=== PATIENT | male | born 1985 | race Caucasian/White ===

== ENCOUNTER 2019-07-18 15:51 | Emergency (ER) | payer MEDICARE, MEDICAID, SELFPAY ==
--- NOTE | ~2019-07-18 | XR_ITS ---
EXAMINATION: XR chest 1V portable EXAM DATE: 07/18/2019 17:16 INDICATION: Fever, shortness of breath today. TECHNIQUE: Portable AP frontal chest x-ray was obtained. There is no prior study for comparison. FINDINGS: The lungs are clear. There are no pleural effusions. The cardiomediastinal silhouette is within normal limits. There is no pneumothorax suspected. The bones and soft tissues are unremarkab le. IMPRESSION: No acute cardiopulmonary findings. Reviewed, dictated and finalized at location A.
[2019-07-18 15:53] VITALS: BP 141/97; PULSE 101; RESP 16; TEMP 36.9; O2SAT 96
--- NOTE | 2019-07-18 16:03 | ECG_ITS ---
Measurements Intervals [place] Rate: 97 P: 52 CO: 152 QRS: 31 QRSD: 105 T: 21 QT: 356 QTc: 454 Interpretive Statements SINUS RHYTHM NORMAL ECG Electronically Signed On 07-19-2019 7:02:24 CDT by Bubba Newell D.O.
--- NOTE | 2019-07-18 16:34 | ED.SOB ---
HPI - SOB/Dyspnea General Chief Complaint: Shortness of Breath/Dyspnea Stated Complaint: fever,sob Time Seen by Provider: 07/18/19 16:30 History of Present Illness HPI Narrative: COugh and SOB for the past week. Associated with mild temperature elovation today. He is not aware of any sick contacts. No nausea, vomiting. He has a h/o schizophrenia. History limited by mental illness. Related Data Home Medications Medication Instructions Recorded Confirmed paliperidone palmitate [Invega 234 mg IM 07/18/19 Sustenna] Allergies Allergy/AdvReac Type Severity Reaction Status Date / Time No Known Allergies Allergy Verified 07/18/19 15:59 Review of Systems Review of Systems: All systems reviewed & are unremarkable except as noted in HPI and below Constitutional: Constitutional: Reports fever(s) ENT: Denies sore throat Cardiovascular: Cardiovascular: Reports chest pain Respiratory: Respiratory: Reports cough and Reports dyspnea Gastrointestinal: Gastrointestinal: Denies abdominal pain and Denies nausea Neurologic: Denies dizziness and Denies weakness [facility] Past Medical History Medical History (Updated 07/18/19 @ 18:11 by Ryan Reynolds MD) Schizophrenia Social History Social History (Updated 07/18/19 @ 18:08 by Ryan Reynolds MD) Living arrangements: with family Exam Const: General: healthy appearing, no acute distress and alert Orientation/consciousness: patient oriented x3 HENMT: Head: normal to inspection Resp: Effort & Inspection: normal respiratory effort Auscultation: clear to auscultation bilaterally Cardio: Rate: tachycardic Rhythm: regular rhythm GI: GI Palp: Yes Soft to palpation and No Tenderness to palpation present (GI) Skin: General skin exam: normal color Neuro: General: patient oriented x3, moves all extremities and no focal motor deficits Speech: normal speech Extrem: General: normal to inspection Psych: Affect: Anxious affect present Course Vital Signs Vital signs: Vital Signs Temperature 36.9 C 07/18/19 15:53 Pulse Rate 101 H 07/18/19 15:53 Respiratory Rate 16 07/18/19 15:53 Blood Pressure 141/97 H 07/18/19 15:53 Pulse Oximetry 96 07/18/19 15:53 Temperature 36.6 C 07/18/19 17:54 Pulse Rate 96 07/18/19 17:54 Respiratory Rate 16 07/18/19 17:54 Blood Pressure 136/91 H 07/18/19 17:54 Pulse Oximetry 96 07/18/19 17:54 MDM - SOB/Dyspnea MDM Narrative Medical decision making narrative: Mild temperature elevation. Certainly posible that he has COVID-19. I will send off the test. No indication for hospital admission at this time. Medical Records Attestation: I reviewed the patient's medical records. Lab Data Labs: Lab Results 07/18/19 Range/Units 17:53 SARS-CoV-2 RNA (RT-PCR) Pending Imaging Data Radiologist's impression: ITS Impressions Chest X-Ray 07/18/19 17:23 IMPRESSION: No acute cardiopulmonary findings. Discharge Plan Discharge Clinical Impression: Upper respiratory tract infection Qualifiers: URI type: unspecified URI Qualified Code(s): J06.9 - Acute upper respiratory infection, unspecified Patient Disposition: Home, Self-Care Condition: Stable Instructions: Upper Respiratory Infection (ED) Prescriptions: No Action Invega Sustenna 234 mg/1.5 mL Syringe 234 mg IM RF: 0 Follow-up/Referrals: Kamari Lord MD [Primary Care Provider] - Discharge Date/Time: 07/18/19 18:35
[2019-07-18 16:50] VITALS: BP 142/81; PULSE 95; RESP 17; O2SAT 98
[2019-07-18 17:54] VITALS: BP 136/91; PULSE 96; RESP 16; TEMP 36.6; O2SAT 96
[2019-07-19 13:21] LABS: SARS-CoV-2 RNA PCR Negative
== END 2019-07-18 18:35 | disposition home or self-care (01) ==
PROVIDERS: Emergency Provider Emergency Medicine; PCP Emergency Medicine
DX: J06.9 Acute upper respiratory infection, unspecified (principal); Z20.828 Contact with and (suspected) exposure to other viral communicable diseases; F20.9 Schizophrenia, unspecified
CPT/HCPCS: 71045; 87635; 93005; 99283; C9803; U0003

== ENCOUNTER 2021-01-14 15:22 | Emergency (ER) | payer MEDICARE, MEDICAID, SELFPAY ==
--- NOTE | ~2021-01-14 | XR_ITS ---
EXAMINATION: XR chest 2V EXAM DATE: 01/14/2021 16:08 INDICATION: Sternal chest pain and shortness of breath. Worse with movement. TECHNIQUE: Frontal and lateral projections of the chest obtained and reviewed. There is no prior yoselyn dy for comparison. FINDINGS: The lungs are clear. There are no pleural effusions. The cardiomediastinal silhouette is within normal limits. There is no pneumothorax suspected. The bones and soft tissues are unremarkab le. IMPRESSION: No acute cardiopulmonary findings. Reviewed, dictated and finalized at location A.
--- NOTE | ~2021-01-14 | CT_ITS ---
EXAMINATION: CTA chest PE protocol DATE: 01/14/2021 18:25 INDICATION: Chest pain. Shortness of breath. Elevated d-dimer. TECHNIQUE: Computed tomography angiography (CTA) of the chest was performed with 100 mL Omnipaque-350 intravenous contrast timed to evaluate the pulmonary arteries. Coronal maximum intensity projection 3D-reconstructions were created by the technologist. Automated exposure control and iterative reconst ruction technique were employed. Exam dose: 476.32 mGy-cm total exam DLP. COMPARISON: 01/2021 2 view chest FINDINGS: There is diagnostic contrast enhancement of the pulmonary arteries and no evidence of pulmo nary embolism. No thoracic aortic aneurysm or dissection. Normal heart size. No pericardial effusion. No hilar or mediastinal mass lesion or lymphadenopathy. No pulmonary infiltrate or consolidation or pulmonary mass lesion is detected. There are small bilateral pleural effusions. Included skeletal structures are unremarkable. IMPRESSION: No evidence of pulmonary embolism Reviewed, dictated and finalized at Location A. Reviewed, dictated and finalized at location A.
[2021-01-14 15:32] VITALS: BP 138/84; PULSE 103; RESP 12; TEMP 36.6; O2SAT 98
--- NOTE | 2021-01-14 15:32 | ECG_ITS ---
Measurements Intervals [place] Rate: 111 P: 48 DC: 148 QRS: 75 QRSD: 105 T: 40 QT: 323 QTc: 439 Interpretive Statements SINUS TACHYCARDIA INCOMPLETE RIGHT BUNDLE BRANCH BLOCK BASELINE WANDER- I, III, AVR, AVL, AVF ABNORMAL ECG Electronically Signed On 01-14-2021 15:41:41 CDT by Bubba Newell D.O.
[2021-01-14 15:55] LABS: Basophils Absolute Auto 0.1 K/mm3 (0.0-0.1); Basophils Percent Auto 0.8 % (0.2-1.2); Eosinophils Absolute Auto 0.1 K/mm3 (0-0.3); Eosinophils Percent Auto 1.7 % (0-4.4); Hematocrit 42.9 % (42.0-52.0); Hemoglobin 15.1 g/dL (14.0-18.0); Immature Granulocyte Absolute 0.02 K/mm3 (0.00-0.031); Immature Granulocyte Percent A 0.3 % (0-0.5); Lymphocytes Absolute Auto 2.02 K/mm3 (0.9-3.2); Lymphocytes Percent Auto 34.2 % (18.3-44.2); Mean Corpuscular HGB Conc 35.2 g/dl (32-36); Mean Corpuscular Hemoglobin 29.6 pg (26-34); Mean Corpuscular Volume 84.1 fl (80-100); Mean Platelet Volume 9.3 fl (7.4-10.4); Monocytes Absolute Auto 0.4 K/mm3 (0.1-0.6); Monocytes Percent Auto 7.3 % (2.6-8.5); Neutrophils Absolute Auto 3.3 K/mm3 (1.3-6.7); Neutrophils Percent Auto 55.7 % (45.5-73.1); Platelet Count Result 277 k/mm3 (150-375); Red Cell Distribution Width 12.1 % (11.5-14.5); White Blood Count 5.9 K/mm3 (4.5-10.0)
[2021-01-14 16:08] LABS: Anion Gap 13 mmol/L (8-16); Blood Urea Nitrogen 13 mg/dL (9-20); Calcium 10.1 mg/dL (8.4-10.2); Carbon Dioxide 26 mmol/L (22-30); Chloride 104 mmol/L (98-107); Estimated CRCL calculation 128 ml/min; Estimated Glomerular Filt Rate > 60; Glucose 123 mg/dL (65-110); Potassium 4.2 mmol/L (3.4-5.0); Sodium 143 mmol/L (137-145)
[2021-01-14 16:14] LABS: INR 0.9; Prothrombin Time 12.3 Seconds (11.1-14.7)
[2021-01-14 16:15] LABS: Partial Thromboplastin Time 30.4 SECONDS (22.3-36.8)
[2021-01-14 16:20] LABS: Troponin I < 0.012 ng/mL (0.000-0.034)
[2021-01-14] MEDS: LIDOCAINE HCL 2% VISC SOLN 15 ML UDC 20 ML PO (16:52)
--- NOTE | 2021-01-14 16:53 | ED.CHESTPAIN ---
HPI - Chest Pain General Chief Complaint: Chest Pain Stated Complaint: chest pain Time Seen by Provider: 01/14/21 16:19 Source: patient History of Present Illness HPI narrative: Patient presents with chest pain. Patient ports that intermittent chest pain for the past month. With symptoms associated with exercise and moving his upper extremities. His pain is described as his sharp without radiation. It is associated with shortness of breath and upset stomach. Denies any cough fevers congestion. Denies any recent hospitalizations major trauma or prior history of blood clots. Denies significant family history of cardiac events. Related Data Home Medications Medication Instructions Recorded Confirmed paliperidone palmitate [Invega 234 mg IM 07/18/19 Sustenna] Allergies Allergy/AdvReac Type Severity Reaction Status Date / Time No Known Allergies Allergy Verified 07/18/19 15:59 Review of Systems Review of Systems: CONSTITUTIONAL: Denies fever, chills, or sweats. EYES: Denies visual changes, redness, or discharge. ENT: Denies rhinorrhea, congestion, sore throat, or otalgia. CARDIOVASCULAR: Denies palpitations, or edema. RESPIRATORY: Denies cough GASTROINTESTINAL: Denies abdominal pain, nausea, vomiting, or diarrhea. GENITOURINARY: Denies dysuria or hematuria. SKIN: Denies rash or itching. MUSCULOSKELETAL: Denies back pain, joint pain, or myalgia. NEUROLOGIC: Denies headache, numbness, dizziness, or weakness. PSYCHIATRIC: Denies anxiety or depression. All systems reviewed & are unremarkable except as noted in HPI and below PMFSH Past Medical History Medical History Schizophrenia Social History Social History (Updated 01/14/21 @ 16:55 by Anton Valdez MD) Smoking status: Never smoker Alcohol intake: never Substance use: never Exam Narrative: GENERAL: Well-appearing, well-nourished, and in no acute distress. HEAD: Normocephalic, atraumatic. EYES: PERRLA and EOMI. ENT: Nares clear, no rhinorrhea or epistaxis. Mucous membranes moist. NECK: Supple. No masses. No JVD CHEST: Clear to auscultation. No respiratory distress. No wheezes rales or rhonchi HEART: Regular rate and rhythm. No murmur heard. Normal peripheral pulses. ABDOMEN: Soft, nontender, nondistended, normal active bowel sounds. EXTREMITIES: Normal range of motion. No edema. SKIN: Warm, dry, no rash. NEURO: No focal deficits. Alert and oriented x3. PSYCH: Normal mood and affect. Course Reevaluation(s) Reevaluation #1: Patient reports feeling much improved results and plan reviewed with patient. Patient comfortable with outpatient plan. Date: 01/14/21 Time: 18:57 Vital Signs Vital signs: Vital Signs Temperature 36.6 C 01/14/21 15:32 Pulse Rate 103 H 01/14/21 15:32 Respiratory Rate 12 01/14/21 15:32 Blood Pressure 138/84 01/14/21 15:32 Pulse Oximetry 98 01/14/21 15:32 Temperature 36.6 C 01/14/21 15:32 Pulse Rate 103 H 01/14/21 15:32 Respiratory Rate 12 01/14/21 15:32 Blood Pressure 138/84 01/14/21 15:32 Pulse Oximetry 98 01/14/21 15:32 MDM - Chest Pain MDM Narrative Medical decision making narrative: H&P as above, vs with mild tachycardia, pt looks clinically well, exam reassuring, labs with elevated abdomen are otherwise unremarkable img without acute process, additional labs/img considered, symptomatic relief available as needed, on reevaluation pt continues to looks clinically well. symptoms remain of unclear etiology however with a reassuring work up low concern for PE, Dissection, ACS, severe sepsis, Esophageal injury. plan to tx/monitor as op w/ pcm f/u findings/plan discussed with pt, pt agree/comfortable with plan, return precautions given Lab Data Result diagrams: 01/14/21 15:44 01/14/21 15:44 Labs: Lab Results 01/14/21 01/14/21 01/14/21 Range/Units 15:44 15:44 15:44 WBC 5.9 (4.5-10.0)
[2021-01-14] MEDS: MAG HYDROX/AL HYDROX/SIMETH 30 ML UDC PO (16:54)
[2021-01-14 17:07] LABS: D Dimer 0.65 ug/mL (<0.48)
== END 2021-01-14 19:24 | disposition home or self-care (01) ==
PROVIDERS: Emergency Medicine; Emergency Provider Emergency Medicine; PCP Emergency Medicine
DX: R07.9 Chest pain, unspecified (principal); R00.0 Tachycardia, unspecified; I45.10 Unspecified right bundle-branch block; F20.9 Schizophrenia, unspecified
CPT/HCPCS: 36415; 71046; 71275; 80048; 84484; 85025; 85380; 85610; 85730; 93005; 99284; A9270; Q9967

== ENCOUNTER 2021-02-08 09:17 | Outpatient (CLI) | payer MEDICARE, MEDICAID, SELFPAY ==
--- NOTE | 2021-02-08 | EST_ITS ---
Patient Info Name: Silvano Maradiaga Age: 35 years : 1985 Gender: Male Ht: 69 in Wt: 207 lbs BSA: 2.16 m2 HR: 87 bpm BP: 116 / 79 mmHg Heart Rhythm: Sinus Rhythm Exam Date: 02/08/2021 10:50 AM Exam Location: [facility] Stress Patient Status: Outpatient Admit Date: 02/08/2021 Staff Ordering Physician: Kamari Lord MD Attending Provider: Kamari Lord MD Exercise Technologist: Charmaine Cardoso CT Exercise Physician: Bubba Newell DO Exam Type: CA stress test treadmill w NM Study Info Indications R07.9 - Chest pain, unspecified A nuclear stress test was performed. Summary 1. 1. Negative Lee exercise stress test for ischemic ST changes by ECG criteria. 2. 2. Reduced functional capacity, achieving 7 METs of workload. 3. 3. Appropriate HR response to exercise. 4. 4. Appropriate HR recovery at 1 minute post exercise. 5. 5. Nuclear scan to follow and will be reported separately. Please correlate with it. 6. 6. Patient informed of the above results. Protocol: Lee Stress ECG Details Stage: REST Duration (min): 0 min : 55 sec Speed (mph): 0.0 Grade (%): 0 HR (bpm): 89 SBP (mmHg): 116 DBP (mmHg): 79 METS: --- Stage: REST Duration (min): 4 min : 36 sec Speed (mph): 0.0 Grade (%): 0 HR (bpm): 92 SBP (mmHg): 116 DBP (mmHg): 79 METS: --- Stage: STAGE 1 Duration (min): 1 min : 0 sec Speed (mph): 1.7 Grade (%): 10 HR (bpm): 116 SBP (mmHg): 116 DBP (mmHg): 79 METS: --- Stage: STAGE 1 Duration (min): 2 min : 0 sec Speed (mph): 1.7 Grade (%): 10 HR (bpm): 129 SBP (mmHg): 116 DBP (mmHg): 79 METS: --- Stage: STAGE 1 Duration (min): 3 min : 0 sec Speed (mph): 1.7 Grade (%): 10 HR (bpm): 139 SBP (mmHg): 143 DBP (mmHg): 86 METS: --- Stage: STAGE 2 Duration (min): 1 min : 0 sec Speed (mph): 2.5 Grade (%): 12 HR (bpm): 150 SBP (mmHg): 143 DBP (mmHg): 86 METS: --- Stage: STAGE 2 Duration (min): 2 min : 0 sec Speed (mph): 2.5 Grade (%): 12 HR (bpm): 164 SBP (mmHg): 133 DBP (mmHg): 75 METS: --- Stage: STAGE 2 Duration (min): 3 min : 0 sec Speed (mph): 2.5 Grade (%): 12 HR (bpm): 173 SBP (mmHg): 133 DBP (mmHg): 75 METS: --- Stage: RECOVERY Duration (min): 0 min : 59 sec Speed (mph): 0.0 Grade (%): 0 HR (bpm): 141 SBP (mmHg): 109 DBP (mmHg): 67 METS: --- Stage: RECOVERY Duration (min): 1 min : 59 sec Speed (mph): 0.0 Grade (%): 0 HR (bpm): 126 SBP (mmHg): 109 DBP (mmHg): 67 METS: --- Stage: RECOVERY Duration (min): 2 min : 59 sec Speed (mph): 0.0 Grade (%): 0 HR (bpm): 104 SBP (mmHg): 124 DBP (mmHg): 68 METS: --- Stage: RECOVERY Duration (min): 3 min : 4 sec Speed (mph): 0.0 Grade (%): 0 HR (bpm): 106 SBP (mmHg): 124 DBP (mmHg): 68
--- NOTE | ~2021-02-08 | NM_ITS ---
NM stress w perf spect multi Procedure: The patient was stressed using Modified Lee protocol. Prior to the end of exercise 31.7 mCi Tc 99m IV administered. Rest imaging performed following administration of 10 mCi Tc 99m IV. I mages were reformatted into short axis, horizontal and vertical long axis sections for visual and ciarra ntitative analysis. Indication: Chest pain Comparison: None Findings: Computer assisted qualitative and quantitative analysis of the immediate and delayed images revealed normal left ventricular perfusion without evidence of fixed or reversible perfusion abnorma lity to suggest ischemia or infarction. Normal left ventricular cavity size, wall motion and ejectio n fraction. Left ventricular ejection fraction measures 72% . Impression: 1: No scintigraphic evidence of resting or stress induced perfusion abnormality. 2: Normal left ventricle ejection fraction measuring 72%. Reviewed, dictated and finalized at location B. NG INSPECTOR Impression: 1: No scintigraphic evidence of resting or stress induced perfusion abnormality . 2: Normal left ventricle ejection fraction measuring 72%.
== END 2021-02-08 09:18 | disposition home or self-care (01) ==
LOC: ANHCARD 09:20
PROVIDERS: PCP Emergency Medicine; Visit Provider Emergency Medicine
DX: R07.9 Chest pain, unspecified (principal)
CPT/HCPCS: 78452; 93017; A9502

== ENCOUNTER 2021-03-19 00:36 | Day surgery (SDC) | payer MEDICARE, MEDICAID, SELFPAY ==
[2021-03-01 14:08] VITALS: BMI 30.9
--- NOTE | 2021-03-19 09:36 | WPDANESEPPF ---
Anes - Initial Pre Proc Eval Procedure: Operation Date: 03/19/21 12:30 Proposed Procedures p Esophagogastroduodenoscopy - Angel Wood MD Date/Time: 03/19/21 09:36 Surgeon: Angel Wood MD Pre Op Diagnosis: GERD Patient Data Age: 35 Gender: M Height: 1.75 m Weight: 95 kg Allergies Allergy/AdvReac Type Severity Reaction Status Date / Time No Known Allergies Allergy Verified 03/19/21 11:21 Home Medications Medication Instructions Recorded Confirmed Type paliperidone palmitate [Invega 234 mg IM DAILY 07/18/19 03/19/21 History Sustenna] olanzapine 20 mg PO DAILY 03/01/21 03/19/21 History omeprazole 40 mg PO DAILY 03/01/21 03/19/21 History Patient hx anesthesia problems: none Family hx anesthesia problems: none Results Review: All pre-operative results and documents have been reviewed as part of the pre-operative evaluation. PMFSH Past Medical History Medical History Schizophrenia Social History Social History (Updated 01/14/21 @ 16:55 by Anton Valdez MD) Smoking status: Never smoker Alcohol intake: never Substance use: never Living arrangements: with family Spiritual care concerns: No Anes - Eval Final PreProcedure Day of Procedure 03/19/21 09:36 Patient weight: obese Heart: regular rate and rhythm Lungs: clear to auscultation and normal air movement Airway: Mallampati scale class II Neurological: alert and oriented Last oral intake: >/= 8 hours ASA classification: III Emergent: no Anesthetic plan: proceed Anesthesia type and monitoring: general GIVS and standard monitoring Results Review: All pre-operative results and documents have been reviewed as part of the pre-operative evaluation. Informed Consent: The patient's anesthetic plan and its attendant risks and benefits were discussed with the patient/family/POA. Questions were solicited and answers provided to the satisfaction of the patient/family/POA.
[2021-03-19 11:22] VITALS: BP 126/82; PULSE 108; RESP 22; TEMP 36.2; O2SAT 99
[2021-03-19] MEDS: LACTATED RINGERS 1,000 ML 150 ML IV CONT (11:26)
--- NOTE | 2021-03-19 12:42 | PM.HPGS ---
History of Present Illness History of Present Illness Consent: Risks, benefits, and alternatives have been discussed and questions answered. Patient agrees to proceed with procedure. Chief complaint: GERD Narrative: Silvano Maradiaga is a 35 year old male with intermittent gerd and chest discomfort, better with omeprazole, never had egd Review of Systems Constitutional: Constitutional: Denies headache(s) and Denies weakness Eyes: Eyes: Denies blurry vision ENT: Reports Normal hearing present, Denies headache(s) and Denies neck pain Cardiovascular: Cardiovascular: Denies chest pain and Denies dyspnea Respiratory: Respiratory: Denies dyspnea Gastrointestinal: Gastrointestinal: Reports no additional gastrointestinal complaints Genitourinary: Genitourinary: Denies dysuria Musculoskeletal: Musculoskeletal: Denies neck pain Integumentary/Breasts: Skin/Breast: Denies dry skin Neurologic: Reports Normal hearing present, Denies headache(s) and Denies weakness Psychiatric: Psychiatric: Denies anxiety Endocrine: Endocrine: Denies change in body appearance Hematologic/Lymphatic: Hematologic/Lymphatic: Denies easy bleeding Allergic/Immunologic: Allergic/Immunologic: Denies urticaria PMFSH Past Medical History Medical History (Updated 03/19/21 @ 12:44 by Angel Wood MD) GERD (gastroesophageal reflux disease) Schizophrenia Social History Social History (Updated 01/14/21 @ 16:55 by Anton Valdez MD) Smoking status: Never smoker Alcohol intake: never Substance use: never Living arrangements: with family Spiritual care concerns: No Meds Home Medications and Allergies Home Medications Medication Instructions Recorded Confirmed Type paliperidone palmitate [Invega 234 mg IM DAILY 07/18/19 03/19/21 History Sustenna] olanzapine 20 mg PO DAILY 03/01/21 03/19/21 History omeprazole 40 mg PO DAILY 03/01/21 03/19/21 History Allergies Allergy/AdvReac Type Severity Reaction Status Date / Time No Known Allergies Allergy Verified 03/19/21 11:21 Vital Signs Vital Signs - 24 hr 03/19/21 11:22 Temperature 97.2 F L Pulse Rate 108 H Respiratory Rate 22 H Blood Pressure 126/82 Pulse Oximetry 99 Exam Const: General: comfortable and no acute distress HENMT: General nose exam: Normal nares present Eyes: General: appearance normal, both eyes and all related structures Neck: Neck: no JVD Resp: Auscultation: clear to auscultation bilaterally Cardio: Rate: regular rate Rhythm: regular rhythm GI: Inspection: non-distended GI Palp: Yes Soft to palpation Skin: General skin exam: normal color Neuro: General: gait normal Speech: normal speech Extrem: General: normal to inspection Psych: Mental Status: mental status grossly normal Assessment and Plan Assessment and plan (1) GERD (gastroesophageal reflux disease): Code(s): K21.9 - Gastro-esophageal reflux disease without esophagitis Status: Acute Assessment and Plan: egd with bx, already on ppi
[2021-03-19] MEDS: BENZOCAINE (*SP) 60 ML SPRAY CAN (HURRICAINE) 1 SPRAY MUCOUS MEM (12:53)
[2021-03-19 13:05] VITALS: BP 114/76; PULSE 83; RESP 16; O2SAT 98
[2021-03-19 13:15] VITALS: BP 129/83; PULSE 73; RESP 20; O2SAT 100
[2021-03-19 13:25] VITALS: BP 108/66; PULSE 75; RESP 19; O2SAT 100
== END 2021-03-19 13:35 | disposition home or self-care (01) ==
PROVIDERS: PCP Emergency Medicine; Visit Provider Internal Medicine Gastroenterology
PROC: 0DJ08ZZ Inspection of Upper Intestinal Tract, Via Natural or Artificial Opening Endoscopic (ICD-10-PCS; CPT 43235; principal; 2021-03-19 12:30)
DX: K21.9 Gastro-esophageal reflux disease without esophagitis (principal); R07.89 Other chest pain; K21.00 Gastro-esophageal reflux disease with esophagitis, without bleeding; K29.60 Other gastritis without bleeding; F20.9 Schizophrenia, unspecified; E66.9 Obesity, unspecified; Z68.30 Body mass index [BMI] 30.0-30.9, adult
CPT/HCPCS: 43239; 88305; J2704; J7120

== ENCOUNTER 2023-10-08 21:15 | Emergency (ER) | payer MEDICARE, MEDICAID, SELFPAY ==
--- NOTE | 2023-10-08 21:30 | ED.PSYCH ---
HPI - Psych General Chief Complaint: Psychiatric Symptoms <James Perdomo APRN - Last Filed: 10/09/23 02:03> Stated Complaint: psych eval, out of meds <James Perdomo APRN - Last Filed: 10/09/23 02:03> Time Seen by Provider: 10/08/23 21:30 <James Perdomo APRN - Last Filed: 10/09/23 02:03> Source: patient <Jamesstefani Perdomo APRN - Last Filed: 10/09/23 02:03> Mode of arrival: ambulatory <James Perdomo APRN - Last Filed: 10/09/23 02:03> Limitations: no limitations <James Perdomo APRN - Last Filed: 10/09/23 02:03> History of Present Illness HPI Narrative: Silvano is a 38-year-old male patient presenting to the ER today with complaints of being out of his psych medications. He is having delusions of grandiose- loose tangulations. Does not know how long he has been out of his medications for. Our records show that he has been on olanzapine 20 mg daily, omeprazole 40 mg daily and Invega Sustenna. He is able to tell me his name, location, and season but is not able to tell me what today is or who the president is. He denies any suicidal or homicidal ideations. Just reports that he wants his medications refilled. History of GERD and schizophrenia. <James Perdomo APRN - Last Filed: 10/09/23 02:03> Silvano is a 38-year-old male patient presenting to the ER today with complaints of being out of his psych medications. He is having delusions of grandiose- loose tangential speech. Does not know how long he has been out of his medications for. Our records show that he has been on olanzapine 20 mg daily, omeprazole 40 mg daily and Invega Sustenna. He is able to tell me his name, location, and season but is not able to tell me what today is or who the president is. He denies any suicidal or homicidal ideations. Just reports that he wants his medications refilled. History of GERD and schizophrenia. <Sloan Anne MD - Last Filed: 10/09/23 03:03> Related Data Home Medications: Home Medications Medication Instructions Recorded Confirmed paliperidone palmitate 234 mg/1.5 234 mg IM DAILY 07/18/19 03/19/21 mL intramuscular syringe (Invega Sustenna) olanzapine 20 mg tablet 20 mg PO DAILY 03/01/21 03/19/21 <James Pedromo APRN - Last Filed: 10/09/23 02:03> Allergies/Adverse Reactions: Allergies Allergy/AdvReac Type Severity Reaction Status Date / Time No Known Allergies Allergy Verified 03/19/21 11:21 <James Perdomo APRN - Last Filed: 10/09/23 02:03> Review of Systems Review of Systems: Pertinent positives per HPI. Patient denies any fever, chills, rash, headache, visual changes, dizziness, cough, runny nose, sore throat, shortness of breath, chest pain, palpitations, nausea, vomiting, diarrhea, constipation, abdominal pain, or any urinary issues. <James Perdomo APRN - Last Filed: 10/09/23 02:03> PMFSH Past Medical History Medical History: Medical History GERD (gastroesophageal reflux disease) Schizophrenia <James Perdomo APRN - Last Filed: 10/09/23 02:03> Social History Social History: Social History Smoking status: Never smoker Alcohol intake: never Substance use: never Substance use type: unknown Living arrangements: with family Spiritual care concerns: No <James Perdomo APRN - Last Filed: 10/09/23 02:03> Comments At the time of my signature, I reviewed and agree with the nursing past medical, surgical, social, and family history. There is no relevant family history pertinent to the patient complaint. <James Perdomo APRN - Last Filed: 10/09/23 02:03> Exam Narrative: General: Well-developed, well nourished, unkempt, in no apparent distress Head: Normocephalic, atraumatic Eyes: Pupils equally round and reactive to light bilate
[2023-10-08 21:43] LABS: Basophils Percent Auto 0.3 % (0.2-1.2); Hematocrit 43.2 % (42.0-52.0); Hemoglobin 14.7 g/dL (14.0-18.0); Immature Granulocyte Absolute 0.04 K/mm3 (0.00-0.031); Immature Granulocyte Percent A 0.3 % (0-0.5); Lymphocytes Absolute Auto 1.25 K/mm3 (0.9-3.2); Lymphocytes Percent Auto 10.9 % (18.3-44.2); Mean Corpuscular Volume 88.2 fl (80-100); Mean Platelet Volume 9.3 fl (7.4-10.4); Monocytes Absolute Auto 0.6 K/mm3 (0.1-0.6); Monocytes Percent Auto 5.5 % (2.6-8.5); Neutrophils Absolute Auto 9.6 K/mm3 (1.3-6.7); Platelet Count Result 264 k/mm3 (150-375); Red Cell Distribution Width 12.6 % (11.5-14.5); White Blood Count 11.5 K/mm3 (4.5-10.0)
[2023-10-08 21:46] VITALS: BP 127/89; PULSE 106; RESP 16; TEMP 36.8; O2SAT 100
[2023-10-08 21:46] LABS: Appearance Urine Clear (Clear); Bilirubin Urine Negative (Negative); Blood Urine Negative (Negative); Color Urine Yellow (Yellow); Glucose Urine UA Negative (Negative); Ketones Urine 1+ mg/dL (Negative); Leukocyte Esterase Ur Negative LEU/UL (Negative); Nitrate Urine Negative (Negative); Protein Urine Negative (Negative); Specific Grav Ur 1.024 (1.001-1.035); pH Urine 5.5 (5.0-9.0)
[2023-10-08 21:47] LABS: Add Urine Microscopic? NO
[2023-10-08 21:54] LABS: Ethanol < 10 mg/dL (<10)
[2023-10-08 21:56] LABS: Alanine Aminotransferase 46 U/L (6-50); Albumin Level 4.7 g/dL (3.5-5.1); Alkaline Phosphatase 121 U/L (38-126); Anion Gap 13 mmol/L (4-12); Aspartate Amino Transferase 36 U/L (17-59); Bilirubin,Total 0.6 mg/dL (0.2-1.3); Blood Urea Nitrogen 18 mg/dL (9-20); Calcium 9.4 mg/dL (8.4-10.2); Carbon Dioxide 24 mmol/L (22-30); Chloride 100 mmol/L (98-107); Estimated CRCL calculation 79 ml/min; Estimated Glomerular Filt Rate > 60; Glucose 92 mg/dL (65-110); Potassium 3.9 mmol/L (3.4-5.0); Sodium 137 mmol/L (137-145)
[2023-10-08] MEDS: OLANZapine 5 MG TABLET 20 MG PO (21:58)
--- NOTE | 2023-10-08 22:01 | PC.NURSE ---
pt given Zyprexa as his normal daily medication.
[2023-10-08 22:08] LABS: Amphetamine Screen Urine Negative (Negative); Barbiturate Screen Urine Negative (Negative); Benzodiazepines Screen Urine Negative (Negative); Cannabinoid Screen Urine Negative (Negative); Cocaine Screen Urine Negative (Negative); Methadone Screen Urine Negative (Negative); Opiate Screen Urine Negative (Negative); Phencyclidine Screen Urine Negative (Negative)
[2023-10-08 22:19] LABS: Influenza A QL RT-PCR Negative (Negative); Influenza B QL RT-PCR Negative (Negative); RSV RNA, RT-PCR Negative (Negative); SARS-CoV-2 RNA PCR Negative (Negative)
--- NOTE | 2023-10-09 03:54 | PC.NURSE ---
per pt request this rn spoke with Yumiko pt caregiver to give pt update and to request transport home.
[2023-10-09 04:10] VITALS: BP 111/71; PULSE 82; RESP 18; O2SAT 100
== END 2023-10-09 04:21 | disposition home or self-care (01) ==
PROVIDERS: Emergency Provider Student in an Organized Health Care Education/Training Program; PCP Emergency Medicine
DX: F22 Delusional disorders (principal); Z76.0 Encounter for issue of repeat prescription; F20.9 Schizophrenia, unspecified; Z20.822 Contact with and (suspected) exposure to COVID-19; K21.9 Gastro-esophageal reflux disease without esophagitis
CPT/HCPCS: 36415; 80053; 80307; 81003; 84443; 85025; 87637; 99284; A9270

== ENCOUNTER 2024-03-25 16:49 | Outpatient (CLI) | payer MEDICARE, MEDICAID, SELFPAY ==
--- NOTE | ~2024-03-25 | XR_ITS ---
XR heel LT min 2V Ordering provider: Kamari Lord MD History: . Pain in left foot, NKI . Comparison: None. FINDINGS: BONES: No acute fracture or dislocation. JOINT SPACES: Well maintained. SOFT TISSUES: Normal. Calcaneus spur is noted. IMPRESSION: No acute osseous abnormality. Reviewed, dictated and finalized at location A. OR OF PODIATRY
== END 2024-03-25 16:50 | disposition home or self-care (01) ==
PROVIDERS: PCP Emergency Medicine; Visit Provider Emergency Medicine
DX: M79.672 Pain in left foot (principal)
CPT/HCPCS: 73650

== ENCOUNTER 2024-06-10 13:50 | Outpatient (CLI) | payer MEDICARE, MEDICAID, SELFPAY ==
[2024-06-10 15:10] LABS: Hematocrit 46.4 % (42.0-52.0); Hemoglobin 15.8 g/dL (14.0-18.0); Mean Corpuscular HGB Conc 34.1 g/dl (32-36); Mean Corpuscular Hemoglobin 29.2 pg (26-34); Mean Corpuscular Volume 85.6 fl (80-100); Mean Platelet Volume 9.8 fl (7.4-10.4); Platelet Count Result 282 k/mm3 (150-375); Red Blood Count 5.42 M/mm3 (4.6-6.20); Red Cell Distribution Width 12.8 % (11.5-14.5); White Blood Count 5.6 K/mm3 (4.5-10.0)
--- OUTSIDE RECORDS SUMMARY | 2024-06-10 15:14 | XMS_ITS | Clinical Summary ---
Author Organization [facility] Address [address] [place] [address] Care Team Providers Care Billing Specialist Name Role Phone Unavailable Primary Care Provider Unavailabl e Source Comments [facility],non-owned Affiliates and Associated Physician Practices is amultiple site organization consisting of ambulatory clinics and hospital sitesin [place], [place], [place] and [place]. This disclosure is being madepursuant to the Care Everywhere program and may not contain all information available regarding this patient. Last updated 17.[facility] Allergies No known active allergies Medications * Be aware that medications may not be up to date on this document. Alwaysverify current medications with the patient. Medication Sig Dispensed Refills Start Date End Date Status paliperidone palmitate (INVEGA SUSTENNA) 156 MG/ML injectionIndicatio ns:Schizophrenia Inject 234 mg into muscle every 30 days Reasons: Schizophrenia 1 mL 12/01/2017 Active risperiDONE (RISPERDAL) 1 MG tablet Take 1 tablet by mouth 2 times daily 60 tablet 11/24/2017 Active Active Problems Problem Noted Date Diagnosed Date Psychosis 07/11/2017 Social History Tobacco Use Types Packs/Day Years Used Date Smoking Tobacco: Never Smokeless Tobacco: Never Alcohol Use Standard Drinks/Week Comments No 0 (1 standard drink = 0.6 oz pur e alcohol) Sex and Gender Information Value Date Recorded Sex Assigned at Not on file Gender Identity Not on file Sexual Orientation Not on file Last Filed Vital Signs Vital Sign Reading Time Taken Comments Blood Pressure 116/66 06/06/2018 5:18 AM CDT Pulse 67 06/06/2018 5:18 AM CDT Temperature 36.9 C (98.5 F) 06/05/2018 8:45 PM CDT Respiratory Rate 18 06/06/2018 5:18 AM CDT Oxygen Saturation 100% 06/06/2018 5:18 AM CDT Inhaled Oxygen Concentration 21% 11/22/2017 8 :15 AM CDT Weight 95.7 kg (211 lb) 06/05/2018 8:55 PM CDT Height 175.3 cm (5' 9 ) 06/05/2018 8:55 PM CDT Body Mass Index 31.16 06/05/2018 8:55 PM CDT Plan of Treatment Health Maintenance Due Date Last Done Comments HIV SCREENING 2001 HEPATITIS C SCREENING 08/21/2004 DTAP/TDAP/TD VACCINES (1 - Tdap) 2005 HEPATITIS B VACCINE (1 of 3 - 19+ 3-dose series) 2005 COVID-19 VACCINE ( - 2023-2 5 season) 2023 INFLUENZA VACCINE (#1) 2023 DEPRESSION SCREENING 03/13/2024 MEDICARE AWV CALENDAR YEAR 2024 ZOSTER VACCINE (1 of 2) 2036 HIB VACCINE Aged Out No longer eligi ble based on patient's age to complete this topic HPV VACCINE Aged Out No longer eligi ble based on patient's age to complete this topic MENINGOCOCCAL (Group B) VACC INE SHARED DECISION-MAKING Aged Out No longer eligibl e based on patient's age to complete this topic MENINGOCOCCAL GROUPS A/C/Y/W VACCINE Aged Out No longer eligible b ased on patient's age to complete this topic PNEUMOCOCCAL VACCINE Aged Out No long er eligible based on patient's age to complete this topic Advance Directives * Full Code (Latest Code Status on File) Date Activated Date Inactivated Comments 11/21/2017 7:58 PM 11/24/2017 4:32 PM * Full Code Date Activated Date Inactivated Comments 07/11/2017 10:27 AM 08/01/2017 3:33 PM
--- OUTSIDE RECORDS SUMMARY | 2024-06-10 15:14 | XMS_ITS ---
Author Organization [facility] Address [address] [place] [address] Care Team Providers Care Population Geneticist Name Role Phone Kamari Lord MD Primary Care Provider Julio Fine Unavailable [phone] REASON FOR VISIT f/u schizophrenia, Depression screening negative Medications Medication SIG (Take, Route, Frequency, Duration) Notes Start Date End Date Status Uzedy 125 MG/0.35ML 0.35 mL Subcutaneous every month for 30 days Active Prazosin HCl 1 MG 1 capsule at bedtime Oral Once a day for 90 days Active Zolpidem Tartrate 5 MG Oral for 30 Days Active Zolpidem Tartrate 5 MG Oral for 30 Days Not-Taking OLANZapine 20 MG Oral for 90 Days Not-Taking Venlafaxine HCl ER 37.5 MG 1 capsule Oral Once a day for 90 days Active Uzedy 125 MG/0.35ML 0.35 mL Subcutaneous every month for 30 days Active OLANZapine 20 MG 1 tablet Oral Once a day for 90 days Active Social History Sex Assigned At : Social History Observation Description Sex Assigned At Male Vital Signs Blood pressure systolic 134 mm Hg 04/23/19 25 Blood pressure diastolic 88 mm Hg 025 Heart Rate 98 /min 04/23/2024 Height 69.00 in 04/23/2024 Weight 225 lbs 04/23/2024 BMI 33.22 kg/m2 04/23/2024 Height-cm 175.26 cm 04/23/2024 Weight-kg 102.06 kg 04/23/2024 Encounters Encounter Location Date Provider Diagnosis [facility] [address] [place] [address] 04/23/2024 Julio Lee Paranoid schizophren ia F20.0 ; Generalized anxiety disorder F41.1 ; Other obsessive-compulsive disorder F42.8 and Other insomnia G47.09 Assessments Encounter Date Diagnosis (ICD Code) Assessment Notes Treatment Notes Treatment Clinical Notes Section Notes 04/23/2024 Paranoid schizophrenia (ICD-10 - F20.0) olanzapine 20mg daily Last Uzedy Injection given 04/19/24 04/23/2024 Generalized anxiety disorder (ICD-10 - F41.1) on venlafaxine er 37.5mg prescribed by PCP 04/23/2024 Other obsessive-compuls arron disorder (ICD-10 - F42.8) 04/23/2024 Other insomnia (ICD-10 - G47.09) stable, Melatonin hs prn, Prazosin 1mg hs 04/23/2024 Other 1. Schizophrenia: - Patient reports taking olanzapine 20 mg daily and receiving Uzeti injection 125 mg monthly. - No concerns with hallucinations or paranoia. Plan: - Continue olanzapine 20 mg daily and Uzeti injection 125 mg monthly. - Monitor for any changes in symptoms or side effects. 2. Mood: - Patient reports stable mood without agitation or anger. Plan: - Continue current treatment regimen and monitor for any changes in mood. 3. Sleep: - Patient reports satisfactory sleep. Plan: - Continue current treatment regimen and monitor for any changes in sleep quality. 4. Appetite: - Patient reports good appetite. Plan: - Continue current treatment regimen and monitor for any changes in appetite. 5. Medications: - Patient is on venlafaxine and prazosin. - No reported problems or concerns with medications. Plan: - Continue venlafaxine and prazosin as prescribed. - Monitor for any side effects or concerns. Follow-up: - Patient to return in 3 months for a follow-up visit. - Patient to continue monthly injections as scheduled. Plan Of Treatment Medication Medication Name Sig Start Date Stop Date Notes Prazosin HCl 1 MG 1 capsule at bedtime Oral Once a day for 90 days Venlafaxine HCl ER 37.5 MG 1 capsule Ora l Once a day for 90 days Uzedy 125 MG/0.35ML 0.35 mL Subcutaneous every month for 30 days OLANZapine 20 MG 1 tablet Oral Once a day for 90 days Treatment Notes Assessment Notes Paranoid schizophrenia olanzapine 20mg daily Last Uzedy Injection given 04/19/24 Generalized anxiety disorder on venlafax ine er 37.5mg prescribed by PCP Other insomnia stable, Melatonin hs prn, Prazosin 1mg hs Next Appt Details Follow Up: 3 Months, Reason: f/u schizophrenia Provider Name:Nicolas Allison , 06/14/2024 01:30:00 PM, [address], [facility] [address], [place], [address], Progress Notes * MOON RICKHANDOB:1985 (38 yo M)Acc No.[id number]:04/23/2024 Patient: SANIYA ORNELAS Provider: RAE FUENTES :1985 A ge:38 Y S ex:Male Date:04/23/2024 Address:[address] [place] [address] [facility] Pcp:Kamari Lord MD Subjective: * Chief Complaints: * F /u schizophreniaDepression screening negative * HPI: D epression screening: the note is transcribed using speech recognition software. It is a reflection of a visit with the patient. It might have some inaccuracy, including medication names and transcribing errors, though efforts have been made to correct them. Chief complaint- Follow-up for schizophrenia management. The patient reports a stable mood without agitation or anger. He denies experiencing hallucinations or paranoia. His sleep has been adequate, and he describes his appetite as pretty good. The patient confirms adherence to his current medication regimen, which includes olanzapine 20 mg daily and monthly Uzedy injections. The last Uzedy injection was administered on April 19. He denies any problems with his medications and states that things are going pretty well. The patient's medical history includes schizophrenia. His current medications are olanzapine 20mg daily, Uzedy injection 125mg monthly, venlafaxine (dosage not specified), and prazosin at bedtime (dosage not specified). A review of systems reveals no psychiatric issues such as agitation, anger, hallucinations, or paranoia. No sleep issues are mentioned, and the patient's appetite is reported as pretty good. . PHQ-9 L ittle interest or pleasure in doing things?Not at all F eeling down, depressed, or hopeless N ot at all T rouble falling or staying asleep, or sleeping too much N ot at all F eeling tired or having little energy N ot at all P oor appetite or overeating N ot at all F eeling bad about yourself or that you are a failure, or have let yourself or your family down N ot at all T rouble concentrating on things, such as reading the newspaper or watching television N ot at all M oving or speaking so slowly that other people could have noticed; or the opposite, being so fidgety or restless that you have been moving around a lot more than usual N ot at all T houghts that you would be better off or of hurting yourself in some way N ot at all T otal Score 0 Intervention D epression Screening Findings N egative S uicide Risk Assessment Performed _ D epression Screening: COLETTE-7 (2018 Edition) F eeling nervous, anxious, or on edge N ot at all N ot being able to stop or control worrying?Not at all W orrying too much about different things N ot at all T rouble relaxing N ot at all B eing so restless that it is hard to sit still N ot at all B ecoming easily annoyed or irritable N ot at all F eeling afraid as if something awful might happen N ot at all T otal COLETTE-7 Score 0 I nterpretation of Total ( 0 to 4) No Anxiety H istory of Presenting Problem: Psychosis P atient endorses: t alks to self, has his own pretend world Modifying Factors: s howers help deal with stress Sx greater than 5 years, talked to self since childhoodhx seeing bugs, seeing stars move in sly, planets moving around stars. * ROS: P erformance Met: N ormal blood pressure reading documented, follow-up not required ( G8783). * Medical History: * Surgical History: * Hospitalization/Major Diagno stic Procedure: * Medications: T akingZolpidem Tartrate 5 MG Tablet Oral Uzedy 125 MG/0.35ML Suspension Prefilled Syringe 0.35 mL Subcutaneous every month OLANZapine 10 MG Tablet 1 tablet Oral Once a day Uzedy 125 MG/0.35ML Suspension Prefilled Syringe 0.35 mL Subcutaneous every month Venlafaxine HCl ER 37.5 MG Capsule Extended Release 24 Hour 1 capsule Oral Once a day Prazosin HCl 1 MG Capsule 1 capsule at bedtime Oral Once a day , stop date 07/22/2024Taking Zolpidem Tartrate 5 MG Tablet Oral Taking Uzedy 125 MG/0.35ML Suspension Prefilled Syringe 0.35 mL Subcutaneous every month Taking OLANZapine 10 MG Tablet 1 tablet Oral Once a day Taking Uzedy 125 MG/0.35ML Suspension Prefilled Syringe 0.35 mL Subcutaneous every month Taking Venlafaxine HCl ER 37.5 MG Capsule Extended Release 24 Hour 1 capsule Oral Once a day Taking Prazosin HCl 1 MG Capsule 1 capsule at bedtime Oral Once a day , stop date 07/22/2024Not-TakingOLANZapine 20 MG Tablet Oral Zolpidem Tartrate 5 MG Tablet Oral Medication List reviewed and reconciled with the patientNot-Taking OLANZapine 20 MG Tablet Oral Not-Taking Zolpidem Tartrate 5 MG Tablet Oral Medication List reviewed and reconciled with the patient * Allergies: n o[Allergies Verified] Objective: * Vitals: B P:134/88mm Hg, HR:98/min, Wt:225lbs, Wt-k.06 kg, Ht: 69.00 in, Ht-cm: 175.26 cm, BMI:33.22Index, Body Surface Area: 2.23. * Examination: P sychiatry: Appearance: d isheveled. Abnormal body movements: n one. Orientation: a wake, alert and oriented x 3. ? G eneral Examination: - Mental Status Examination: - Mood: No agitation or anger reported. - Psychotic symptoms: No hallucinations or paranoia reported. - Appetite: Reported as pretty good. - Physical Examination: - General: No physical complaints or issues reported during the visit. - Diagnostic Test Results and Labs: - Last Uzeti injection (125 mg monthly for schizophrenia): Received on April 19, 2024. - Medications confirmed: Olanzapine 20 mg daily, Venlafaxine, and Prazosin at bedtime. Assessment: * Assessment: 1. P aranoid schizophrenia - F20.0 (Primary) 2 . G eneralized anxiety disorder - F41.1 3 . O ther obsessive-compulsive disorder - F42.8 4 .?Other insomnia - G47.09 Plan: * Treatment: 2. G eneralized anxiety disorder Continue Venlafaxine HCl ER Capsule Extended Release 24 Hour, 37.5 MG, 1 capsule, Oral, Once a day, 90 days, 90 Capsule, Refills 1. Notes: on venlafaxine er 37.5mg prescribed by PCP 3. O ther insomnia Refill Prazosin HCl Capsule, 1 MG, 1 capsule at bedtime, Oral, Once a day, 90 days, 90 Capsule, Refills 1. Notes: stable, Melatonin hs prn, Prazosin 1mg hs 4. O thers Clinical Notes: 1. Schizophrenia: - Patient reports taking olanzapine 20 mg daily and receiving Uzeti injection 125 mg monthly. - No concerns with hallucinations or paranoia. Plan: - Continue olanzapine 20 mg daily and Uzeti injection 125 mg monthly. - Monitor for any changes in symptoms or side effects. 2. Mood: - Patient reports stable mood without agitation or anger. Plan: - Continue current treatment regimen and monitor for any changes in mood. 3. Sleep: - Patient reports satisfactory sleep. Plan: - Continue current treatment regimen and monitor for any changes in sleep quality. 4. Appetite: - Patient reports good appetite. Plan: - Continue current treatment regimen and monitor for any changes in appetite. 5. Medications: - Patient is on venlafaxine and prazosin. - No reported problems or concerns with medications. Plan: - Continue venlafaxine and prazosin as prescribed. - Monitor for any side effects or concerns. Follow-up: - Patient to return in 3 months for a follow-up visit. - Patient to continue monthly injections as scheduled. * Procedure Codes: G 8783 NORMAL BP READING DOC F/U NOT [id number] BEHAV ASSMT W/SCORE & DOCD/STAND [id number] MOST RECENT SYSTOLIC BP < 140MM [id number] MOST RECENT DIASTOLIC BP < 90MM HG * Follow Up: 3 Months (Reason: f/u schizophrenia) * Billing Information: * Visit Code: 82735 OFFICE OUTPATIENT VISIT 25 MINUTES DETAILED HISTORY AND EXAM/MODERATE MEDICAL DECISION MAKING. * Procedure Codes: G8783 NORMAL BP READING DOC F/U NOT RQR. 81107 BEHAV ASSMT W/SCORE & DOCD/STAND INSTRUMENT. G8752 MOST RECENT SYSTOLIC BP < 140MM HG. G8754 MOST RECENT DIASTOLIC BP < 90MM HG. * Sign off status: Completed true * Provider: RAE FUENTES Date: 0 04/23/2024 Generated for Derek segura/Edouard/Aki on: 0 06/10/2024 03:14 PM CDT History and Physical Notes * HPI (History of Present Illness) Category Sub-Category Detail Notes Category Not es History of Presenting Problem Psychosis Patient endorses: talks to s elf, has his own pretend world Modifying Factors: showers help deal with stress Sx greater than 5 years, talked to self since childhoodhx seeing bugs, seeing stars move in sly, planets moving around stars Depression screening PHQ-9 Little inte rest or pleasure in doing things: Not at all Feeling down, depressed, or hopeless: No t at all Trouble falling or staying asleep, or sl eeping too much: Not at all Feeling tired or having little energy: N ot at all Poor appetite or overeating: Not at all Feeling bad about yourself o r that you are a failure, or have let yourself or your family down: Not at all Trouble concentrating on thi ngs, such as reading the newspaper or watching television: Not at all Moving or speaking so slowly that other people could have noticed; or the opposite, being so fidgety or restless that you have been moving around a lot more than usual: Not at all Thoughts that you would be b tavia off or of hurting yourself in some way: Not at all Total Score: 0 Intervention Depression Screening Findings: N egative Suicide Risk Assessment Performed: ____ Depression Screening COLETTE-7 (2018 Edition) Feelin g nervous, anxious, or on edge: Not at all Not being able to stop or control worryi ng: Not at all Worrying too much about different things : Not at all Trouble relaxing: Not at all Being so restless that it is hard to sit still: Not at all Becoming easily annoyed or irritable: No t at all Feeling afraid as if something awful masoud ht happen: Not at all Total COLETTE-7 Score: 0 Interpretation of Total: (0 to 4) No Anx iety Examination Category Sub-Category Detail Notes Category Not es Psychiatry Appearance: disheveled Abnormal body movements: none Orientation: awake, alert and luis ented x 3 General Examination - Mental Status Examination: - Mood: No agitation or anger reported. - Psychotic symptoms: No hallucinations or paranoia reported. - Appetite: Reported as pretty good. - Physical Examination: - General: No physical complaints or issues reported during the visit. - Diagnostic Test Results and Labs: - Last Uzeti injection (125 mg monthly for schizophrenia): Received on April 19, 2024. - Medications confirmed: Olanzapine 20 mg daily, Venlafaxine, and Prazosin at bedtime.
--- OUTSIDE RECORDS SUMMARY | 2024-06-10 15:14 | XMS_ITS | Data Portability ---
Author Organization [employer], Main Office Address [address] [place] [address] Assessment No assessment recorded. Plan of Treatment Reminders Order Date Submit Date Provider Last Modified By Organization Details Last Modified Time Details Appointments New Patient 30 2024 03:00P M Lizeth mcbride MD Not available Not available Not available Lab None recorded . Referral None recorded . Procedures None recorded . Surgeries None recorded . Imaging None recorded . Medication Orders ibuprofe n 800 mg tablet 2024 [id number] [address] [place], [address], 04/16/2024 13:55:46 Patient TargetsNo targets recorded. Patient InstructionsNo instructions recorded. Reason for Referral None Reported. Results Created Date Observation Date Name Description Value Unit Range Abnormal Flag Note LastModifiedBy Organization Detail LastModifiedTime 03/28/1903/25/2024 XR, foot No observ ation record ed. BARCODE Not Available 2024 11:43:43 Result Notes None recorded. Problems Name Problem SNOMED Code Status Onset Date Resolution Date Notes Provider Name and Address Organization Details Recorded Time Plantar fasciitis of right foot 47541334416133 101 Active 2024 CAM Go null, [employer] 5 15:50:44 Pain in right foot 79917117212522 7 Active 2024 Anuel Fletcher DPM [address], [place], [address] , [facility] 09:55:57 Plantar fasciitis 395847711 Active 2024 Anuel Fletcher DPM [address] [facility] [address], [place], [address], [employer] [facility] [employer] 5 09:56:05 Problem Notes None recorded. Procedures Surgical History Date Name Laterality Status Provider Name and Address Organization Details Recorded Time 03/28/19 25 Corticosteroid Injection completed Anuel Fletcher DPM [address], [place], [address], [facility] [employer] [facility] [employer] 04/01/2024 09:56:23 Imaging Results Imaging Date Name Status LastModified by Organiz ation Details LastModified Time 03/25/2024 XR, foot completed BAR[facility] Information no t available 03/28/2024 11:43:43 Procedure Notes None recorded. Medical Equipment None Reported. Allergies No known drug allergies Medications Name Sig Start Date Stop Date Status Note LastModified by Organization Details LastModified Time ibuprofen 800 mg tablet Take 1 tablet 3 times a day by oral route. 025 active Not Available Not Available Not Avai lable Latuda active Not Available Not Availa ble Not Available Vitals Date Recorded Body height Body mass index (BMI) Body weight Respiratory rate Body temperature Heart rate Oxygen saturation Oxygen saturation in Arterial blood by Pulse oximetry Systolic blood pressure Diastolic blood pressure Provider Name and Address Organization Details Last Updated DateTime 5 177.8 cm 31.9 kg/m2 174232. 51 g 16 /min 98 [degF] 100 /min 96 % 96 % 120 mm[Hg] 80 mm[Hg] Kathy Reginald [facility] [employer] 5 15:31:54 Date Recorded Body height Body mass index (BMI) Body weight Oxygen saturation Oxygen saturation in Arterial blood by Pulse oximetry Body temperature Heart rate Provider Name and Address Organization Details Last Updated DateTime 5 177.8 cm 31.7 kg/m2 846538. 91 g 98 % 98 % 97.9 [degF] 88 /min CAM Wayne [facility] [employer] 15:27:34 Social History None recorded. Functional Status None recorded. Mental Status None recorded. Family History Relationship Description Onset Age of this Age Resolved Age Notes LastModified by Organization Details LastModified Time Father Heart disease [email or web address] Not available 03/13 15:32:58 Medical History Condition Response DEPRESSION (INCLUDING POST ) Y Past Encounters Encounter ID Performer Location Encounter Start Date Encounter Closed Date Diagnosis/Indication Diagnosis SNOMED-CT Code Diagnosis ICD10 Code Diagnosis Note [id number] Anuel Fletcher DPM [facility] [address] [address] 03/28/2024 15:23:52 04/08/2024 14:30:32 Plantar fasciitis of right foot 7504998189 6971387 M72.2 Pain in right foot 54319 18058 95761 M79.671 Plantar fasciitis 304373 003 M72.2 [id number] Anuel Fletcher DPM [facility] [address] [facility] [address] [place] [address] 04/04/2024 15:21:05 04/05/2024 14:27:02 Health Concerns Section Related Observation LastModified by Organization Detai ls LastModified Time None Recorded Concern Status LastModified by Organization Details LastModified Time None Recorded Advance Directives Directive None Recorded Payers Encounter Date Sequence Insurance Name Policy Number Policy Chaparro Covered Member ID Chaparro Member ID Guarantor Name 03/28/2024 1 [place] Silvano A Hiren [id number] Silvano Hiren 03/28/2024 2 [place] WHEN MEDICARE OR MEDICARE REPLACEMENT PRIMARY) Silvano Hiren [id number] Silvano Hiren 04/04/2024 1 [place] Silvano A Hiren [id number] Silvano Hiren 04/04/2024 2 [place] OR MEDICARE REPLACEMENT PRIMARY) Silvano Hiren [id number] Silvano Hiren Notes Date Note Type Note Provider Name and Address Organization Details Recorded Time 03/28/2024 text/html Pt RTC for cont c/o PFitis, Rt foot. Pain improved w/ previous tx. Anuel Fletcher DPM [address] [facility], [place], [address], [facility] [employer] [facility] 04/01/2024 10:00:00 04/04/2024 text/html Pt is one wk s/p injection and tx for retro-calcaneal spur and pain. Anuel Fletcher DPM [address] [place] [address], [place], [address], [facility] 04/05/2024 08:14:01
--- OUTSIDE RECORDS SUMMARY | 2024-06-10 15:14 | XMS_ITS ---
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 Role Phone Kamari Lord MD Primary Care Provider Julio Fine Unavailable [phone] Nicolas Raygoza Unavailable [phone] Allergies No Known Allergies REASON FOR VISIT Supervisied visit, Depression screening negative Medications Medication SIG (Take, Route, Frequency, Duration) Notes Start Date End Date Status Prazosin HCl 1 MG 1 capsule at bedtime Oral Once a day for 90 days Active Uzedy 125 MG/0.35ML 0.35 mL Subcutaneous every month for 30 days Active Venlafaxine HCl ER 37.5 MG 1 capsule Oral Once a day for 90 days Active OLANZapine 20 MG 1 tablet Oral Once a day for 90 days Active OLANZapine 20 MG Oral for 90 Days Not-Taking Zolpidem Tartrate 5 MG Oral for 30 Days Not-Taking Social History Tobacco Use: Social History Observation Description Date Details (start date - stop date) Never Smoker NA - NA Sex Assigned At : Social History Observation Description Sex Assigned At Male Tobacco Control (Standard) Question Answer Notes Tobacco use: Nonsmoker Vital Signs Blood pressure systolic 110 mm Hg 06/11/19 25 Blood pressure diastolic 80 mm Hg 025 Heart Rate 99 /min 06/10/2024 Height 69.00 in 06/10/2024 Weight 219 lbs 06/10/2024 BMI 32.34 kg/m2 06/10/2024 Height-cm 175.26 cm 06/10/2024 Weight-kg 99.34 kg 06/10/2024 Encounters Encounter Location Date Provider Diagnosis [employer] [address] [facility] [address] [place] [address] 06/10/2024 Nicolas Keegan Encounter for screen ing for cardiovascular disorders Z13.6 ; Vitamin D deficiency E55.9 ; Hypothyroidism, unspecified type E03.9 ; Vitamin deficiency E56.9 ; Dyslipidemia E78.5 ; Encounter for screening for depression Z13.31 ; Paranoid schizophrenia F20.0 ; Generalized anxiety disorder F41.1 ; Other obsessive-compulsive disorder F42.8 and Other insomnia G47.09 Assessments Encounter Date Diagnosis (ICD Code) Assessment Notes Treatment Notes Treatment Clinical Notes Section Notes 06/10/2024 Encounter for screening for cardiovascular disorders (ICD-10 - Z13.6) 06/10/2024 Vitamin D deficiency (ICD-10 - E55.9) 06/10/2024 Hypothyroidism, unspecified type (ICD-10 - E03.9) 06/10/2024 Vitamin deficiency (ICD-10 - E56.9) 06/10/2024 Dyslipidemia (ICD-10 - E78.5) 06/10/2024 Encounter for screening for depression (ICD-10 - Z13.31) 06/10/2024 Paranoid schizophrenia (ICD-10 - F20.0) olanzapine 20mg daily Last Uzedy Injection given 04/19/24 06/10/2024 Generalized anxiety disorder (ICD-10 - F41.1) on venlafaxine er 37.5mg prescribed by PCP 06/10/2024 Other obsessive-compulsi ve disorder (ICD-10 - F42.8) 06/10/2024 Other insomnia (ICD-10 - G47.09) stable, Melatonin hs prn, Prazosin 1mg hs 06/10/2024 [place] is a patient with a history of psychiatric issues, currently on multiple medications including olanzapine, Zubsolv, venlafaxine ER, and prazosin, reporting recent sleep difficulties and visual disturbances. Psychotic Disorder/ Paranoid Schizophrenia Assessment: Patient reports a history of visual hallucinations, describing them as blue, yellow, red colors. He has been on olanzapine 20 mg for almost a year, which suggests a diagnosis of a psychotic disorder. The absence of current paranoia, suspiciousness, or auditory hallucinations indicates that the condition is relatively stable on the current medication regimen. Plan: - Continue olanzapine 20 mg daily - Scheduled antipsychotic injection on 06/14/2024 - Follow up with Jagdish (regular provider) in the next 2 months Insomnia Assessment: Patient reports difficulty sleeping and has been using melatonin lately. He is not currently taking zolpidem. The patient's mother has requested a sleep aid. Plan: - Continue current use of melatonin - Defer decision on prescription sleep aid to Jagdish (regular provider) - Message Jagdish regarding patient's request for sleep aid Medication Management Assessment: Patient is currently on multiple psychiatric medications including olanzapine 20 mg, Zubsolv (reason unspecified), venlafaxine ER 37.5 mg, and prazosin 1 mg. No recent adverse effects or concerns reported. However, patient has not had lab work done since last year, which is concerning given the potential metabolic effects of olanzapine. Plan: - Continue current medication regimen: olanzapine 20 mg, Zubsolv, venlafaxine ER 37.5 mg, prazosin 1 mg - Order blood work including metabolic panel and blood glucose - Recommend lab work to be done at [place] Substance Use Assessment: Patient denies current use of alcohol, tobacco, marijuana, or other illicit substances. Plan: - Continue to monitor for substance use at follow-up appointments Occupational Status Assessment: Patient reports being unemployed for a while now. This may impact his overall functioning and mental health status. Plan: - Discuss occupational status and potential interventions at next appointment with Jagdish Disclaimer: This note has been transcribed using speech recognition software and serves as a reflection of the patient's visit. While efforts have been made to ensure accuracy, there may be errors, including outreach manager inaccuracies and misspellings of medication names. This document should not be considered a verbatim record, and any discrepancies should be verified with the provider. Plan Of Treatment Medication Medication Name Sig Start Date Stop Date Notes Prazosin HCl 1 MG 1 capsule at bedtime Oral Once a day for 90 days Uzedy 125 MG/0.35ML 0.35 mL Subcutaneous every month for 30 days Venlafaxine HCl ER 37.5 MG 1 capsule Ora l Once a day for 90 days OLANZapine 20 MG 1 tablet Oral Once a day for 90 days Treatment Notes Assessment Notes Paranoid schizophrenia olanzapine 20mg daily Last Uzedy Injection given 04/19/24 Generalized anxiety disorder on venlafax ine er 37.5mg prescribed by PCP Other insomnia stable, Melatonin hs prn, Prazosin 1mg hs Pending Test Test Name Order Date LIPID PANEL, STANDARD (7600) 06/10/2024 THYROID PANEL WITH TSH (7444) 06/10/2024 COMPREHENSIVE METABOLIC PANEL (23114) CBC (INCLUDES DIFF/PLT) (6399) HEMOGLOBIN A1c (496) 06/10/2024 VITAMIN B12/FOLATE, SERUM PANEL (7065) 0 06/10/2024 VITAMIN D,25-OH,TOTAL,IA (10239) 025 Next Appt Details Follow Up: keep appointment with Julio,2 Months, Reason: Provider Name:Nicolas Raygoza , 06/14/2024 01:30:00 PM, [address], [facility] [address], [place], [address], Progress Notes * MOON RICKHANDOB:1985 (38 yo M)Acc No.[id number]:06/10/2024 Patient: SANIYA ORNELAS Provider: Lucille RAYGOZA MD :1985 A ge:38 Y S ex:Male Date:06/10/2024 Address:[address] [place] [address] [facility] Pcp:Kamari Lord MD Subjective: * Chief Complaints: * S upervisied visitDepression screening negative * HPI: D epression Screening: Chief Complaint Difficulty sleeping, visual hallucinations ( Blue, yellow, red colors), request for sleep aid other than all the time History of Present Illness Saniya is a patient with a history of psychiatric treatment who presents for a follow-up visit. He reports doing well overall but mentions recent difficulty with sleep, for which he has been using melatonin. Saniya has been taking olanzapine 20 mg for almost a year, along with Zubsolv, venlafaxine ER 37.5 mg, and prazosin 1 mg. He denies current use of zolpidem for insomnia. Saniya reports no current issues with mood, depression, or anxiety. He also denies experiencing paranoia or suspiciousness. While he states he has not had any visions, he mentions seeing colors such as blue, yellow, and red when asked about the nature of visions. Saniya denies current use of alcohol, marijuana, or other drugs. Regarding his overall health status, Saniya has not had any recent lab work done, with his last tests performed the previous year. He is not currently working and has been unemployed for a while now. Saniya reports no issues with memory, concentration, or focus. His mother has expressed interest in him taking a sleep aid other than melatonin. Social History The patient is currently unemployed and has not worked for a while now. He denies current use of alcohol, tobacco, or marijuana. The patient reports using melatonin recently to aid with sleep. No other substance use or recreational drug use is mentioned. The patient's primary care provider is identified as Kamari Boyd, and their pharmacy is [facility]. Medications and Supplements - Olanzapine (Zyprexa) 20 mg - Taking for almost a year - Zubsolv - Venlafaxine ER 37.5 mg - Prazosin 1 mg - Melatonin - Recently started using for sleep Medical History The patient has a history of visual hallucinations, experiencing visions of different colors including blue, yellow, and red. He has been taking psychiatric medications for at least a year, suggesting an ongoing mental health condition. The patient also reports a history of sleep difficulties, for which he has been using melatonin. There is no mention of prior hospitalizations, self-harm, or violent behavior in the transcript. Review of Systems The patient reports difficulty sleeping and has been using melatonin. He denies paranoia, suspiciousness, thoughts of dying or , and thoughts of self-harm. The patient reports experiencing visions of different colors (blue, yellow, red). He denies hearing voices. The patient denies any concentration problems or focus issues. COLETTE-7 (2018 Edition) F eeling nervous, anxious, [...] Total ( 0 to 4) No Anxiety D epression screening: PHQ-9 L ittle interest or pleasure in [...] egative S uicide Risk Assessment Performed _ * ROS: P erformance Met: N ormal blood pressure reading documented, follow-up not required ( G8783). * Medical History: * Surgical History: * Hospitalization/Major Diagno stic Procedure: * Social History: T obacco Use: T obacco Control (Standard) T obacco use: N onsmoker M igrated Social History: M igrated Social History: Alcohol Intake: None 03/15/2018,Tobacco Years: Never smoker 12/11/2017,Smoking Status: 0 12/19/2022. * Medications: T akingOLANZapine 20 MG Tablet 1 tablet Oral Once a day Uzedy 125 MG/0.35ML Suspension Prefilled Syringe 0.35 mL Subcutaneous every month Venlafaxine HCl ER 37.5 MG Capsule Extended Release 24 Hour 1 capsule Oral Once a day Prazosin HCl 1 MG Capsule 1 capsule at bedtime Oral Once a day Taking OLANZapine 20 MG Tablet 1 tablet Oral Once a day Taking Uzedy 125 MG/0.35ML Suspension Prefilled Syringe 0.35 mL Subcutaneous every month Taking Venlafaxine HCl ER 37.5 MG Capsule Extended Release 24 Hour 1 capsule Oral Once a day Taking Prazosin HCl 1 MG Capsule 1 capsule at bedtime Oral Once a day Not-TakingOLANZapine 20 MG Tablet Oral Zolpidem Tartrate 5 MG Tablet Oral Not-Taking OLANZapine 20 MG Tablet Oral Not-Taking Zolpidem Tartrate 5 MG Tablet Oral DiscontinuedZolpidem Tartrate 5 MG Tablet Oral Uzedy 125 MG/0.35ML Suspension Prefilled Syringe 0.35 mL Subcutaneous every month Medication List reviewed and reconciled with the patientDiscontinued Zolpidem Tartrate 5 MG Tablet Oral Discontinued Uzedy 125 MG/0.35ML Suspension Prefilled Syringe 0.35 mL Subcutaneous every month Medication List reviewed and reconciled with the patient * Allergies: N .K.D.A.no[Allergies Verified] Objective: * Vitals: B P:110/80mm Hg, HR:99/min, Wt:219lbs, Wt-k.34 kg, Ht: 69.00 in, Ht-cm: 175.26 cm, BMI:32.34Index, Body Surface Area: 2.2. * Examination: G eneral Examination: M ental Status Examination The patient presented with no apparent distress. His thought process appeared generally linear and goal-directed throughout the interview. When questioned about perceptual disturbances, the patient reported experiencing visual hallucinations described as Blue, yellow, red. Different colors. No auditory hallucinations were reported. The patient denied current paranoia, suspiciousness, or thoughts of or self-harm. Cognitively, the patient denied any concentration problems or focus issues. Memory function was briefly discussed, with the patient reporting no perceived memory difficulties. Laboratory, Imaging, and Diagnostic Test Results The patient reports that his last laboratory tests were performed last year. No specific test results or imaging studies were mentioned in the transcript. Assessment: * Assessment: 1. P aranoid schizophrenia - F20.0 (Primary) 2 . E ncounter for screening for cardiovascular disorders - Z13.6 3 . V itamin D deficiency - E55.9 4 . H ypothyroidism, unspecified type - E03.9 5 . V itamin deficiency - E56.9 6 . D yslipidemia - E78.5 7 . E ncounter for screening for depression - Z13.31 8 . G eneralized anxiety disorder - F41.1 ?9. O ther obsessive-compulsive disorder - F42.8 1 0. O ther insomnia - G47.09 Plan: * Treatment: 2. V itamin D deficiency L AB: LIPID PANEL, STANDARD (7600) L AB: THYROID PANEL WITH TSH (7444) L AB: COMPREHENSIVE METABOLIC PANEL (96240) L AB: CBC (INCLUDES DIFF/PLT) (6399) L AB: HEMOGLOBIN A1c (496) L AB: VITAMIN B12/FOLATE, SERUM PANEL (7065) L AB: VITAMIN D,25-OH,TOTAL,IA (64601) 3. H ypothyroidism, unspecified type L AB: LIPID PANEL, STANDARD (7600) L AB: THYROID PANEL WITH TSH (7444) L AB: COMPREHENSIVE METABOLIC PANEL (39622) L AB: CBC (INCLUDES DIFF/PLT) (6399) L AB: HEMOGLOBIN A1c (496) L AB: VITAMIN B12/FOLATE, SERUM PANEL (7065) L AB: VITAMIN D,25-OH,TOTAL,IA (08981) 4. V itamin deficiency L AB: LIPID PANEL, STANDARD (7600) L AB: THYROID PANEL WITH TSH (7444) L AB: COMPREHENSIVE METABOLIC PANEL (71533) L AB: CBC (INCLUDES DIFF/PLT) (6399) L AB: HEMOGLOBIN A1c (496) L AB: VITAMIN B12/FOLATE, SERUM PANEL (7065) L AB: VITAMIN D,25-OH,TOTAL,IA (31574) 5. D yslipidemia L AB: LIPID PANEL, STANDARD (7600) L AB: THYROID PANEL WITH TSH (7444) L AB: COMPREHENSIVE METABOLIC PANEL (83930) L AB: CBC (INCLUDES DIFF/PLT) (6399) L AB: HEMOGLOBIN A1c (496) L AB: VITAMIN B12/FOLATE, SERUM PANEL (7065) L AB: VITAMIN D,25-OH,TOTAL,IA (06236) 6. G eneralized anxiety disorder Continue Venlafaxine HCl ER Capsule Extended Release 24 Hour, 37.5 MG, 1 capsule, Oral, Once a day, 90 days, 90 Capsule, Refills 1. L AB: LIPID PANEL, STANDARD (7600) L AB: THYROID PANEL WITH TSH (7444) L AB: COMPREHENSIVE METABOLIC PANEL (04922) L AB: CBC (INCLUDES DIFF/PLT) (6399) L AB: HEMOGLOBIN A1c (496) L AB: VITAMIN B12/FOLATE, SERUM PANEL (7065) L AB: VITAMIN D,25-OH,TOTAL,IA (76139) Notes: on venlafaxine er 37.5mg prescribed by PCP 7. O ther insomnia Refill Prazosin HCl Capsule, 1 MG, 1 capsule at bedtime, Oral, Once a day, 90 days, 90 Capsule, Refills 1. L AB: LIPID PANEL, STANDARD (7600) L AB: THYROID PANEL WITH TSH (7444) L AB: COMPREHENSIVE METABOLIC PANEL (58767) L AB: CBC (INCLUDES DIFF/PLT) (6399) L AB: HEMOGLOBIN A1c (496) L AB: VITAMIN B12/FOLATE, SERUM PANEL (7065) L AB: VITAMIN D,25-OH,TOTAL,IA (63404) Notes: stable, Melatonin hs prn, Prazosin 1mg hs 8. O thers Clinical Notes: Saniya is a patient with a history of psychiatric issues, currently on multiple medications including olanzapine, Zubsolv, venlafaxine ER, and prazosin, reporting recent sleep difficulties and visual disturbances. Psychotic Disorder/ Paranoid Schizophrenia Assessment: Patient reports a history of visual hallucinations, describing them as blue, yellow, red colors. He has been on olanzapine 20 mg for almost a year, which suggests a diagnosis of a psychotic disorder. The absence of current paranoia, suspiciousness, or auditory hallucinations indicates that the condition is relatively stable on the current medication regimen. Plan: - Continue olanzapine 20 mg daily - Scheduled antipsychotic injection on 06/14/2024 - Follow up with Jagdsih (regular provider) in the next 2 months Insomnia Assessment: Patient reports difficulty sleeping and has been using melatonin lately. He is not currently taking zolpidem. The patient's mother has requested a sleep aid. Plan: - Continue current use of melatonin - Defer decision on prescription sleep aid to Jagdish (regular provider) - Message Jagdish regarding patient's request for sleep aid Medication Management Assessment: Patient is currently on multiple psychiatric medications including olanzapine 20 mg, Zubsolv (reason unspecified), venlafaxine ER 37.5 mg, and prazosin 1 mg. No recent adverse effects or concerns reported. However, patient has not had lab work done since last year, which is concerning given the potential metabolic effects of olanzapine. Plan: - Continue current medication regimen: olanzapine 20 mg, Zubsolv, venlafaxine ER 37.5 mg, prazosin 1 mg - Order blood work including metabolic panel and blood glucose - Recommend lab work to be done at [place] Substance Use Assessment: Patient denies current use of alcohol, tobacco, marijuana, or other illicit substances. Plan: - Continue to monitor for substance use at follow-up appointments Occupational Status Assessment: Patient reports being unemployed for a while now. This may impact his overall functioning and mental health status. Plan: - Discuss occupational status and potential interventions at next appointment with Jagdish Disclaimer: This note has been transcribed using speech recognition software and serves as a reflection of the patient's visit. While efforts have been made to ensure accuracy, there may be errors, including outreach manager inaccuracies and misspellings of medication names. This document should not be considered a verbatim record, and any discrepancies should be verified with the provider. ? * Procedure Codes: G 8783 NORMAL BP READING DOC F/U NOT [id number] BEHAV ASSMT W/SCORE & DOCD/STAND [id number] MOST RECENT SYSTOLIC BP < 140MM [id number] MOST RECENT DIASTOLIC BP < 90MM HG * Follow Up: doug whyte appointment with Julio,2 Months * Billing Information: * Visit Code: 56980 OFFICE OUTPATIENT VISIT 25 MINUTES DETAILED HISTORY AND EXAM/MODERATE MEDICAL DECISION MAKING. * Procedure Codes: G8783 NORMAL BP READING DOC F/U NOT RQR. 25508 BEHAV ASSMT W/SCORE & DOCD/STAND INSTRUMENT. G8752 MOST RECENT SYSTOLIC BP < 140MM HG. G8754 MOST RECENT DIASTOLIC BP < 90MM HG. * Sign off status: Completed true * Provider: Lucille RAYGOZA MD Date: 06/10/2024 Generated for Derek segura/Edouard/Rickieitting on: 06/10/2024 03:14 PM CDT History and Physical Notes * HPI (History of Present Illness) Category Sub-Category Detail Notes Category Not es Depression screening PHQ-9 Little inte rest or [...] Category Sub-Category Detail Notes Category Not es General Examination Mental Status Examination The patient presented with no apparent distress. His thought process appeared generally linear and goal-directed throughout the interview. When questioned about perceptual disturbances, the patient reported experiencing visual hallucinations described as Blue, yellow, red. Different colors. No auditory hallucinations were reported. The patient denied current paranoia, suspiciousness, or thoughts of or self-harm. Cognitively, the patient denied any concentration problems or focus issues. Memory function was briefly discussed, with the patient reporting no perceived memory difficulties. Laboratory, Imaging, and Diagnostic Test Results The patient reports that his last laboratory tests were performed last year. No specific test results or imaging studies were mentioned in the transcript.
--- OUTSIDE RECORDS SUMMARY | 2024-06-10 15:14 | XMS_ITS ---
Author Organization [facility] [employer] Address [address] [place] [address] Care Team Providers Care Track Announcer Name Role Phone Kamari Lord MD Primary Care Provider Julio Fine Unavailable [phone] Allergies No Known Allergies REASON FOR VISIT Patient is here for his 125mg Uzedy injection Medications Medication SIG (Take, Route, Frequency, Duration) Notes Start Date End Date Status Prazosin HCl 1 MG 1 capsule at bedtime Oral Once a day for 90 days Active Zolpidem Tartrate 5 MG Oral for 30 Days Active Zolpidem Tartrate 5 MG Oral for 30 Days Not-Taking Uzedy 125 MG/0.35ML 0.35 mL Subcutaneous every month for 30 days Active OLANZapine 20 MG Oral for 90 Days Not-Taking OLANZapine 20 MG 1 tablet Oral Once a day for 90 days Active Uzedy 125 MG/0.35ML 0.35 mL Subcutaneous every month for 30 days Active Venlafaxine HCl ER 37.5 MG 1 capsule Oral Once a day for 90 days Active Social History Sex Assigned At : Social History Observation Description Sex Assigned At Male Vital Signs Blood pressure systolic 109 mm Hg 05/18/19 25 Blood pressure diastolic 77 mm Hg 025 Heart Rate 99 /min 05/17/2024 Height 69.00 in 05/17/2024 Weight 192.2 lbs 05/17/2024 BMI 28.38 kg/m2 05/17/2024 Height-cm 175.26 cm 05/17/2024 Weight-kg 87.18 kg 05/17/2024 Encounters Encounter Location Date Provider Diagnosis [facility] [address] [place] [address] 05/17/2024 Julio Lee Paranoid schizophren ia F20.0 Assessments Encounter Date Diagnosis (ICD Code) Assessment Notes Treatment Notes Treatment Clinical Notes Section Notes 05/17/2024 Paranoid schizophrenia (ICD-10 - F20.0) Verified the injection dose and diagnosis Plan Of Treatment Next Appt Details Provider Name:Nicolas Allison , 06/14/2024 01:30:00 PM, [address], [place], [address], Medications Administered Medication Instructions Date of Administration Dosage Notes Uzedy 05/17/2024 125 mg Progress Notes * OMON RICKJUSTINOB:1985 (38 yo M)Acc No.[id number]:05/17/2024 Progress Note Patient: SANIYA ORNELAS Provider: RAE FUENTES :1985 A ge:38 Y S ex:Male Date:05/17/2024 Address:[address] [place], [place] [address] Pcp:Kamari Lord MD Subjective: * Chief Complaints: * P atient is here for his 125mg Uzedy injection * HPI: F unctional Status: Patient is here for injection. Injection given by Staff: Selene Injection is documented in the Therapeutic Injection section Patient was observed for: 1 0 M inutes Post injection side effects No Provider was in the office. * Medical History: * Medications: T akingOLANZapine 20 MG Tablet 1 tablet Oral Once a day Uzedy 125 MG/0.35ML Suspension Prefilled Syringe 0.35 mL Subcutaneous every month Venlafaxine HCl ER 37.5 MG Capsule Extended Release 24 Hour 1 capsule Oral Once a day Prazosin HCl 1 MG Capsule 1 capsule at bedtime Oral Once a day Zolpidem Tartrate 5 MG Tablet Oral Uzedy 125 MG/0.35ML Suspension Prefilled Syringe 0.35 mL Subcutaneous every month Taking OLANZapine 20 MG Tablet 1 tablet Oral Once a day Taking Uzedy 125 MG/0.35ML Suspension Prefilled Syringe 0.35 mL Subcutaneous every month Taking Venlafaxine HCl ER 37.5 MG Capsule Extended Release 24 Hour 1 capsule Oral Once a day Taking Prazosin HCl 1 MG Capsule 1 capsule at bedtime Oral Once a day Taking Zolpidem Tartrate 5 MG Tablet Oral Taking Uzedy 125 MG/0.35ML Suspension Prefilled Syringe 0.35 mL Subcutaneous every month Not-TakingOLANZapine 20 MG Tablet Oral Zolpidem Tartrate 5 MG Tablet Oral Medication List reviewed and reconciled with the patientNot- Taking OLANZapine 20 MG Tablet Oral Not-Taking Zolpidem Tartrate 5 MG Tablet Oral Medication List reviewed and reconciled with the patient * Allergies: N .K.D.A.no[Allergies Verified] Objective: * Vitals: B P:109/77mm Hg, HR:99/min, Wt:192.2lbs, Wt-k.18 kg, Ht: 69.00 in, Ht-cm: 175.26 cm, BMI:28.38Index, Body Surface Area: 2.06. Therapeutic Interventions: Assessment: * Assessment: 1. P [facility] schizophrenia - F20.0 Verified the injection dose and diagnosis. Plan: * Treatment: * Therapeutic Injections: Uzedy : 125 mg (Route: Intramuscular) given by Selene King on right deltoid * Procedure Codes: 9 6372 THERAPEUTIC PROPHYLACTIC/DX INJECTION SUBQ/IM * Billing Information: * Visit Code: 33181 OFFICE OUTPATIENT VISIT 5 MINUTES. * Procedure Codes: 40911 THERAPEUTIC PROPHYLACTIC/DX INJECTION SUBQ/IM. * Electronically co-signed by RAE Howell on 05/19/2024 at 08:21 PM CDT Sign off status: Completed true * Provider: RAE FUENTES Date: 05/17/2024 Generated for Derek segura/Edouard/Aki on: 06/10/2024 03:13 PM CDT
--- OUTSIDE RECORDS SUMMARY | 2024-06-10 15:14 | XMS_ITS | Clinical Summary ---
Author Organization [facility] Address [address] [place] [address] Phone Care Team Providers Care Heater Helper Forge Name Role Phone Unavailable Primary Care Provider Unavailabl e Allergies No known active allergies Medications traZODone (DESYREL) 50 MG Tablet Take 50 mg by mouth nightly. Active Social History Tobacco Use Types Packs/Day Years Used Date Smoking Tobacco: Never Smokeless Tobacco: Never Alcohol Use Standard Drinks/Week Comments No 0 (1 standard drink = 0.6 oz pur e alcohol) Sex and Gender Information Value Date Recorded Sex Assigned at Not on file Legal Sex Male 8:32 PM CDT Gender Identity Not on file Sexual Orientation Not on file Last Filed Vital Signs Vital Sign Reading Time Taken Comments Blood Pressure 122/73 08/11/2017 3:02 PM CDT Pulse 89 08/11/2017 3:02 PM CDT Temperature 36.7 C (98 F) 08/11/2017 3:02 PM CDT Respiratory Rate 18 08/11/2017 3:02 PM CDT Oxygen Saturation 98% 08/11/2017 3:02 PM CDT Inhaled Oxygen Concentration - - Weight 81.6 kg (180 lb) 08/11/2017 3:02 PM CDT Height 175.3 cm (5' 9 ) 08/11/2017 3:02 PM CDT Body Mass Index 26.58 08/11/2017 3:02 PM CDT Plan of Treatment Not on file
[2024-06-10 15:34] LABS: Alanine Aminotransferase 50 U/L (6-50); Albumin Level 4.9 g/dL (3.5-5.1); Alkaline Phosphatase 111 U/L (38-126); Anion Gap 11 mmol/L (4-12); Aspartate Amino Transferase 29 U/L (17-59); Bilirubin,Total 0.5 mg/dL (0.2-1.3); Blood Urea Nitrogen 16 mg/dL (9-20); Calcium 9.9 mg/dL (8.4-10.2); Carbon Dioxide 26 mmol/L (22-30); Chloride 104 mmol/L (98-107); Cholesterol 210 mg/dL (0-200); Estimated Glomerular Filt Rate > 60; Glucose 101 mg/dL (65-110); HDL Direct 40 mg/dL; Potassium 4.6 mmol/L (3.4-5.0); Sodium 141 mmol/L (137-145); Triglycerides 212 mg/dL (<150)
[2024-06-10 15:46] LABS: LDL Cholesterol Direct 137 mg/dL
[2024-06-10 15:57] LABS: Vitamin D 25 Hydroxy 31.5 ng/mL
[2024-06-10 16:05] LABS: Thyroid Stimulating Hormone 0.398 uIU/mL (0.465-4.680)
[2024-06-10 16:41] LABS: Folic Acid 12.2 ng/mL (2.76->20)
== END 2024-06-10 13:51 | disposition home or self-care (01) ==
PROVIDERS: PCP Emergency Medicine; Visit Provider Psychiatry & Neurology Psychiatry
DX: E55.9 Vitamin D deficiency, unspecified (principal); E03.9 Hypothyroidism, unspecified; F20.0 Paranoid schizophrenia; E56.9 Vitamin deficiency, unspecified; E78.5 Hyperlipidemia, unspecified; F41.1 Generalized anxiety disorder; G47.09 Other insomnia
CPT/HCPCS: 36415; 80053; 80061; 82306; 82607; 82746; 84443; 85027

== ENCOUNTER 2024-07-17 14:21 | Outpatient (CLI) | payer MEDICARE, MEDICAID, SELFPAY ==
--- OUTSIDE RECORDS SUMMARY | 2024-07-17 14:31 | XMS_ITS | Clinical Summary ---
Author Organization [facility] Address [address] [place] [address] Phone Care Team Providers Care Cytology Teacher Name Role Phone Unavailable Primary Care Provider [...]
--- OUTSIDE RECORDS SUMMARY | 2024-07-17 14:31 | XMS_ITS | Clinical Summary ---
Author Organization [facility] Address [address] [place] [address] Care Team Providers Care Flight Tower Dispatcher Name Role Phone Unavailable Primary Care Provider Unavailabl e Source Comments [facility],non-owned Affiliates and Associated Physician Practices is amultiple site organization consisting of ambulatory clinics and hospital sitesin [place], [place], [place] and [place]. This disclosure is being madepursuant to the Care Everywhere program and may not contain all information available regarding this patient. Last updated 17.[facility] Allergies No known active allergies Medications * This document contains information received from the source organization and may not represent a complete record from that organization. * Be aware that medications may not be up to date on this document. Alwaysverify current medications with the patient. paliperidone palmitate (INVEGA SUSTENNA) 156 MG/ML injectionIndic ations:Schizop hrenia Inject 234 mg into muscle every 30 days Reasons: Schizophrenia 1 mL 8 Active risperiDONE (RISPERDAL) 1 MG tablet Take 1 tablet by mouth 2 times daily 60 tablet 8 Active Active Problems Problem Noted Date Diagnosed Date Psychosis 07/11/2017 Social History Tobacco Use Types Packs/Day Years Used Date Smoking Tobacco: Never Smokeless Tobacco: Never Alcohol Use Standard Drinks/Week Comments No 0 (1 standard drink = 0.6 oz pur e alcohol) Sex and Gender Information Value Date Recorded Sex Assigned at Not on file 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 Gender Identity Not on file Sexual Orientation [...] VACCINE ( - 2023-2 5 season) 2023 DEPRESSION SCREENING 03/13/2024 INFLUENZA VACCINE (Season Ended) 2024 ZOSTER VACCINE (1 of 2) 2036 [...] on patient's age to complete this topic Insurance MEDICARE MEDICAID - OUT OF STATE [place] [facility] MEDICAID - [place]ENDING [place]ID [place] Advance Directives * Full Code (Latest Code Status on File) Date Activated Date Inactivated Comments 11/21/2017 7:58 PM 11/24/2017 4:32 PM * Full Code Date Activated Date Inactivated Comments 07/11/2017 10:27 AM 08/01/2017 3:33 PM
--- OUTSIDE RECORDS SUMMARY | 2024-07-17 14:31 | XMS_ITS ---
Author Organization [facility] Address [address] [place] [address] Care Team Providers Care Roller Embosser Name Role Phone Kamari Lord MD Primary Care Provider Julio Fine Unavailable [phone] Nicolas Raygoza Unavailable [phone] Allergies No Known Allergies REASON FOR VISIT Injection, Patient is here for injection Medications Medication SIG (Take, Route, Frequency, Duration) Notes Start Date End Date Status Zolpidem Tartrate 5 MG Oral for 30 Days Not-Taking OLANZapine 20 MG Oral for 90 Days Not-Taking Uzedy 125 MG/0.35ML 0.35 mL Subcutaneous every 28 days for 28 days Active Venlafaxine HCl ER 37.5 MG 1 capsule Oral Once a day for 90 days Active Prazosin HCl 1 MG 1 capsule at bedtime Oral Once a day for 90 days Active OLANZapine 20 MG 1 tablet Oral Once a day for 90 days Active Social History Sex Assigned At : Social History Observation Description Sex Assigned At Male Vital Signs Blood pressure systolic 116 mm Hg 07/16/19 25 Blood pressure diastolic 50 mm Hg 025 Heart Rate 81 /min 07/15/2024 Height 69.00 in 07/15/2024 Weight 215 lbs 07/15/2024 BMI 31.75 kg/m2 07/15/2024 Height-cm 175.26 cm 07/15/2024 Weight-kg 97.52 kg 07/15/2024 Encounters Encounter Location Date Provider Diagnosis [facility] [address] [place] [address] 07/15/2024 Nicolas Raygoza Paranoid schizophren ia F20.0 Assessments Encounter Date Diagnosis (ICD Code) Assessment Notes Treatment Notes Treatment Clinical Notes Section Notes 07/15/2024 Paranoid schizophrenia (ICD-10 - F20.0) Verified the injection dose and diagnosis Plan Of Treatment Next Appt Details Provider Name:Nicolas Raygoza , 08/16/2024 04:00:00 PM, [address], [place] [address], [place], [address], Provider Name:Julio ortiz, 09/05/2024 01:15:00 PM, [address], [place], [address], Progress Notes * LORA RICKOB:1985 (38 yo M)Acc No.[id number]:07/15/2024 Progress Note Patient: SANIYA ORNELAS Provider: Lucille RAYGOZA MD :1985 A ge:38 Y S ex:Male Date:07/15/2024 Address:[address] [place] [address] [facility] Pcp:Kamari Lord MD Subjective: * Chief Complaints: * 1 . Injection. 2. Patient is here for injection. * HPI: H istory of Presenting Problem: Patient is here for injection. Injection given by Staff Sharon Injection is documented in the Therapeutic Injection section Patient was observed for: 1 5 M inutes Post injection side effects. * Active Problem List F20.0 Paranoid schizophren ia Modified On:09/04/2023/U Status:confirmed F41.1 Generalized anxiety disorder Modified On:01/24/2024/U Status:confirmed F42.8 Other obsessive-comp ulsive disorder Modified On:01/24/2024/U Status:confirmed G47.09 Other insomnia Modified On:01/24/2024U Status:confirmed * Medical History: P roblems: Asperger's disorder, Chronic paranoid schizophrenia, Generalized anxiety disorder, History of high risk medication, Long-term current use of antipsychotic medication, Obsessive-compulsive disorder, Paranoid schizophrenia, Persistent insomnia, Schizophrenia, ,. * Medications: T aking Venlafaxine HCl ER 37.5 MG Capsule Extended Release 24 Hour 1 capsule Oral Once a day , Taking Prazosin HCl 1 MG Capsule 1 capsule at bedtime Oral Once a day , Taking OLANZapine 20 MG Tablet 1 tablet Oral Once a day , Taking Uzedy 125 MG/0.35ML Suspension Prefilled Syringe 0.35 mL Subcutaneous every 28 days , Not-Taking OLANZapine 20 MG Tablet Oral , Not-Taking Zolpidem Tartrate 5 MG Tablet Oral * Allergies: N .K.D.A. Objective: * Vitals: B P:116/50mm Hg, HR:81/min, Wt:215lbs, Wt-k.52 kg, Ht: 69.00 in, Ht-cm: 175.26 cm, BMI:31.75Index, Body Surface Area: 2.18. Therapeutic Interventions: Assessment: * Assessment: 1Ashlie martinez schizophrenia - F20.0 Verified the injection dose and diagnosis Plan: * Treatment: * Procedure Codes: 9 6372 THERAPEUTIC PROPHYLACTIC/DX INJECTION SUBQ/IM * Billing Information: * Visit Code: 45791 OFFICE OUTPATIENT VISIT 5 MINUTES. * Procedure Codes: 48160 THERAPEUTIC PROPHYLACTIC/DX INJECTION SUBQ/IM. * Electronic signature of Silvino Raygoza MD on 07/17/2024 at 02:31 PM CDT Sign off status: Pending * Provider: Lucille RAYGOZA MD Date: 07/15/2024 Generated for Derek segura/Edouard/Aki on: 07/17/2024 02:31 PM CDT
--- OUTSIDE RECORDS SUMMARY | 2024-07-17 14:31 | XMS_ITS ---
Author Organization [facility] Address [address] [place] [address] [address] Care Team Providers Care Senior Net Web Developer Name Role Phone Kamari Lord MD Primary Care Provider Julio Fine Unavailable [phone] Nicolas Raygoza Unavailable [phone] REASON FOR VISIT Injection Only Visit Social History Sex Assigned At : Social History Observation Description Sex Assigned At Male Encounters Encounter Location Date Provider Diagnosis [address] [address] 07/12/2024 Nicolas Raygoza Plan Of Treatment Next Appt Details Provider Name:Nicolas Raygoza , 08/16/2024 04:00:00 PM, [address] [place] [address], [address], [address], Provider Name:Julio ortiz, 09/05/2024 01:15:00 PM, [address] [place] [address], [address], Progress Notes * MERLINEMOONHANDOB:1985 (38 yo M)Acc No.[id number]:07/12/2024 Progress Note Patient: SANIYA ORNELAS Provider: Lucille RAYGOZA MD :1985 A ge:38 Y S ex:Male Date:07/12/2024 [address] [facility] Pcp:Kamari Lord MD Subjective: * Chief Complaints: * 1 . Injection Only Visit. * Active Problem List F20.0 Paranoid schizophren ia Modified On:09/04/2023/U Status:confirmed F41.1 Generalized anxiety disorder Modified On:01/24/2024 Status:confirmed F42.8 Other obsessive-comp ulsive disorder Modified On:01/24/2024 Status:confirmed G47.09 Other insomnia Modified On:01/24/2024 Status:confirmed * Medical History: Objective: * Vitals: Therapeutic Interventions: Assessment: Plan: * Treatment: * Billing Information: * Visit Code: * Procedure Codes: * Electronic signature of Silvino Raygoza MD on 07/17/2024 at 02:31 PM CDT Sign off status: Pending * Provider: Lucille RAYGOZA MD Date: 07/12/2024 Generated for Derek segura/Edouard/Aki on: 07/17/2024 02:31 PM CDT
--- OUTSIDE RECORDS SUMMARY | 2024-07-17 14:31 | XMS_ITS | Data Portability ---
Author Organization [facility] [employer], Main Office Address [address] [place] [address] Care Team Providers Care Spring Upholsterer Name Role Phone RAMONA SAMUEL Psychiatrist Assessment No assessment recorded. Plan of Treatment Reminders Order Date Submit Date Provider Last Modified By Organization Details Last Modified Time Details Appointments Follow Up 15 2024 03:45P Jaz mcbride MD Not available Not available Not available Lab vitamin D, 25-hydrox y, total, serum 2024 025 [facility] (Lab), [address] [place], [address], 07/10/2024 15:02:03 lipid panel, serum 2024 025 [facility] (Lab), [address] [place], [address], 07/10/2024 15:01:48 CBC w/ auto diff 2024 025 [facility] (Lab), [address] [place], [address], 07/10/2024 15:03:36 TSH, serum or plasma 2024 025 [facility] (Lab), [address] [place], [address], 07/10/2024 15:03:22 CMP, serum or plasma 2024 025 [facility] (Lab), [address] [place], [address], 07/10/2024 15:01:31 Referral None recorded. Procedures None recorded. Surgeries None recorded. Imaging None recorded. Medication Orders ibuprofen 800 mg tablet 2024 025 [id number], [address] [place], [address], 06/17/2024 15:36:48 Patient TargetsNo targets recorded. Patient InstructionsNo instructions [...] Recorded Time Plantar fasciitis of right foot 5061959369492 9101 Active 2024 CAM Go, [place] [employer] [facility] [employer] 5 15:50:44 Pain in right foot 5199122082822 07 Active 2024 Anuel Fletcher DPM [address], [place], [address], [employer] 5 09:55:57 Plantar fasciitis 445991261 Active 2024 Anuel Fletcher DPM [address], [place], [address], [employer] 5 09:56:05 Schizophren ia 68735867 Active 2024 CAM Olson, [employer] 5 15:42:00 Asperger's disorder 83038600 Active 2024 CAM Olson, [employer] [facility] 5 15:42:25 Vitamin D deficiency 49286057 Active 2024 Lizeth mcbride MD [address], [address], [place], [address], [facility] 16:00:47 Excessive cerumen in ear canal 956769515 Active 2024 Lizeth mcbride MD [address], [address], [place], [address], [facility] 16:22:36 Thyroid hormone tests outside reference range 997805914 Active 2024 Lizeth mcbride MD [address], [address], [place], [address], [facility] 14:59:31 Hyperglycem ia 08575818 Active 2024 CAM Olson, [facility] 12:21:04 Hyperlipide maribel 09688458 Active 2024 CAM Olson, [facility] 14:57:49 Problem Notes None recorded. Procedures Surgical History Date Name Laterality Status Provider Name and Address Organization Details Recorded Time 03/28/19 25 Corticosteroid Injection completed Anuel Fletcher DPM [address], [facility] [address], [place], [address], [facility] 04/01/2024 09:56:23 Appendectomy completed CAM Olson [facility] 06/17/2024 15:47:37 Imaging Results Imaging Date Name Status LastModified [...] 3 times a day by oral route. 06/17 completed Not Available Not Available Not Available olanzapine 20 mg disintegrat ing tablet Place 1 tablet every day by transling ual route. active Not Available Not Available No t Available Crestor 40 mg tablet Take 1 tablet every day by oral route. 2024 active Not Available Not Available Not Avai lable prazosin active Not Available Not Avai lable Not Available Latuda 06/17 completed Not Available Not Available Not Available Uzedy active Not Available Not Availa ble Not Available Vitals Date Recorded Body height Body mass index (BMI) Body weight Respiratory rate Body temperature Heart rate Oxygen saturation Oxygen saturation in Arterial blood by Pulse oximetry Systolic blood pressure Diastolic blood pressure Provider Name and Address Organization Details Last Updated DateTime 5 177.8 cm 31.9 kg/m2 397154. 51 g 16 /min 98 [degF] 100 /min 96 % 96 % 120 mm[Hg] 80 mm[Hg] Kathy Montelongo [facility] 15:31:54 Date Recorded Body height Body mass index (BMI) Body weight Oxygen saturation Oxygen saturation in Arterial blood by Pulse oximetry Body temperature Heart rate Provider Name and Address Organization Details Last Updated DateTime 5 177.8 cm 31.7 kg/m2 872274. 91 g 98 % 98 % 97.9 [degF] 88 /min Kevin Gonzalez [facility] [employer] [facility] 15:27:34 Date Recorded Body height Body mass index (BMI) Body weight Body temperature Heart rate Systolic blood pressure Diastolic blood pressure Provider Name and Address Organization Details Last Updated DateTime 5 177.8 cm 31 kg/m2 54456.9 5 g 98.2 [degF] 84 /min 116 mm[Hg] 70 mm[Hg] Blanca Gonzales [facility] [employer] [facility] 15:51:29 Date Recorded Body height Provider Name an d Address Organization Details Last Updated DateTime 07/10/2024 177.8 cm Leida Berkowitz RN [facility] [employer] [facility] 07/10/2024 15:23:44 Social History Question Answer Notes LastModified by Organizat ion Details LastModified Time Tobacco Smoking Status Never Smoker Kathy Montelongo [facility] 03/28/2024 15:33:07 Do You Have An Advance Directive? No Information not available 06/17/2024 What Is Your Level Of Alcohol Consumption? None Information not available 06/17/2024 What Is Your Level Of Caffeine Consumption? Moderate Information not available 06/17/2024 In The 14 Days Before Symptom Onset, Have You Had Close Contact With A Laboratory-confir med COVID-19 While That Case Was Ill? No Information not available 06/17/2024 In The 14 Days Before Symptom Onset, Have You Had Close Contact With A Person Who Is Under Investigation For COVID-19 While That Person Was Ill? No Information not available 06/17/2024 Are You Currently Employed? No Information not available 06/17/2024 What Type Of Diet Are You Following? REGULAR Information not available 06/17/2024 What Is The Highest Grade Or Level Of School You Have Completed Or The Highest Degree You Have Received? [id number] Information not available 06/17/2024 What Is The Fluoride Status Of Your Home? Unknown Information not available 06/17/2024 Are There Any Guns Present In Your Home? No Information not available 06/17/2024 Where Do You Live? SingleLevelHouse Information not available 06/17/2024 Do You Have A Medical Power Of Exchange Architect? No Information not available 06/17/2024 What Was The Date Of Your Most Recent Tobacco Screening? 06/17/2024 Information not available 06/17/2024 Do You Have Any Pets? Yes Information not available 06/17/2024 What Is Your Relationship Status? Single Information not available 06/17/2024 Do You Use Your Seat Belt Or Car Seat Routinely? Yes Information not available 06/17/2024 Do You Have Smoke And Carbon Monoxide Detectors In Your Home? Yes Information not available 06/17/2024 Are You Passively Exposed To Smoke? No Information no t available 06/17/2024 Are There Any Smokers In Your House? No Information not available 06/17/2024 Do You Feel Stressed (tense, Restless, Nervous, Or Anxious, Or Unable To Sleep At Night)? [id number] Information not available 06/17/2024 Do You Use Any Illicit Or Recreational Drugs? No Information not available 06/17/2024 Has Tobacco Cessation Counseling Been Provided? No N/a Information not available 06/17/2024 Have You Recently Traveled Abroad? No Information not available 06/17/2024 Do You Or Have You Ever Used Any Other Forms Of Tobacco Or Nicotine? No Information not available 06/17/2024 Sex: Male Functional Status Question Answer Note LastModified by Organization D etails LastModified Time What is your exercise level? Heavy Information not available 06/17/2024 Mental Status None recorded. Family History Relationship Description Onset Age of this Age Resolved Age Notes LastModified by Organization Details LastModified Time Father Heart disease [email or web address] Not available 03/13 15:32:58 Father Diabetes mellitus Not available 2024 15:43:23 Paternal Aunt Mental disorder Not available 2024 15:43:13 Paternal Aunt Diabetes mellitus Not available 2024 15:43:23 Medical History Condition Response NERVE DISEASE N BLINDNESS N RHEUMATIC FEVER N KIDNEY STONES N BLADDER PROBLEMS N MRSA N OTHER # 1 N POLIO N LUNG DISEASE/DISORDER N HISTORY OF DRUG ABUSE N RADIATION / CHEMOTHERAPY N COPD N Other # 2 N BLOOD DISEASES N EAR OR HEARING PROBLEMS N MUMPS N SHINGLES N BOWEL PROBLEMS N DEPRESSION (INCLUDING POST ) Y FAILED BACK SYNDROME N STROKE/TIA N ULCERS N BENIGN PROSTATIC HYPERPLASIA N MEASLES N HYPOTENSION N MYOCARDIAL INFARCTION N OBESITY N GERD/NAUSEA N ANEURYSM N URINARY/BLADDER/KIDNEY PROBLEMS N CORONARY ARTERY DISEASE (CAD) N Do you have Advance directive? N ADDICTION CONCERNS N ENDOMETRIOSIS N Impotence N USE OF BLOOD THINNERS N SKIN PROBLEMS N GASTROINTESTINAL DISORDER N PERIPHERAL VASCULAR DISEASE N MUSCLE,JOINT OR BONE PROBLEMS N GASTROINTESTINAL BLEEDING N BLOOD CLOTS N ASTHMA N Abdominal Pain N CATARACTS N ARTERIAL INSUFFICIENCY N ERECTILE DYSFUNCTION N VARICOSITIES N GI PROBLEMS N Low Testosterone N INFERTILITY N AIDS/HIV N CHEMOTHERAPY / RADIATION N LIVER DISEASE N MALE HYPOGONADISM N HYPERTENSION N Deficiency N TOURETTE'S N ANXIETY DISORDER N BLOOD TRANSFUSION N ANEMIA/BLOOD DISORDER N CHRONIC EAR INFECTIONS N TUBERCULOSIS N GLAUCOMA N FOOT PROBLEM N DIVERTICULITIS N CHICKENPOX N SLEEP APNEA N BACK INJECTIONS N ALLERGIES/HAYFEVER N INFECTIOUS DISEASE N HEART ARRHYTHMIA N PROSTATE N ESRD N INSOMNIA N HIGH CHOLESTEROL / HYPERLIPIDEMIA N HYPERTHYROIDISM N EYE PROBLEMS N PVD N EDEMA N CHRONIC PAIN SYNDROME N HYPOTHYROIDISM N CONSTIPATION N CAROTID BLOCKAGE N BACK / NECK PROBLEMS N ATHEROSCLEROSIS N BREAST PROBLEMS N DIALYSIS N POLYCYSTIC OVARIES N ECZEMA N OSTEOPOROSIS N ARTHRITIS N APPENDICITIS N DIABETES, TYPE N BAD TEETH N VON WILLIBRAND'S DISEASE N ENT N HEARTBURN / REFLUX N GI N AUTISM SPECTRUM DISORDER (ASD) Y POST LAMINECTOMY SYNDROME N HEPATITIS / LIVER DISEASE N GOUT N SLEEP DISORDER N ALZHEIMER'S DISEASE N Brain Problems N HERPES N DEMENTIA N HEADACHES/MIGRAINES N SEIZURES/EPILEPSY N VASCULAR DISEASE N PACEMAKER N DIZZINESS N HEART DISEASE/HEART PROBLEMS N KIDNEY DISEASE N MULTIPLE SCLEROSIS N NEUROPSYCHOLOGICAL Y CARDIAC ARRHYTHMIA N CANCER: SPECIFY N ATRIAL FIBRILLATION N Gall Stones N PULMONARY EMBOLISM N AUTOIMMUNE DISEASE N Immunizations Vaccine Type Date Status Note Provider Nam e and Address Organization Details Recorded Time Hib, unspecified formulation 02/22/1988 completed Blanca Gonzales RMA null, [facility] [employer] 06/17/2024 15:41:31 MMR 11/27/1987 completed Blanca Gonzales RMA null, [facility] 06/17/2024 15:41:31 MMR 12/14/1991 completed CAM Olson null, [facility] 06/17/2024 15:41:31 COVID-19, mRNA, LNP-S, PF, 30 mcg/0.3 mL dose 06/13/2020 completed Blanca Gonzales RMA null, [facility] 06/17/2024 15:41:31 COVID-19, mRNA, LNP-S, PF, 30 mcg/0.3 mL dose 07/08/2020 completed Blanca Gonzales RMA null, [facility] 06/17/2024 15:41:31 Tdap 08/04/2009 completed Blanca Gonzales RMA null, [facility] 06/17/2024 15:41:31 Hep B, unspecified formulation 10/25/1994 completed EDEN OlsonA null, [facility] 06/17/2024 15:41:31 OPV 09/15/1988 completed Blanca Christian, RMA null, [place] [facility] 06/17/2024 15:41:31 OPV 1986 completed Blanca [place], RMA null, [place] [facility] 06/17/2024 15:41:31 OPV 1986 completed Blanca Christian, RMA null, [facility] 06/17/2024 15:41:31 OPV 02/24/1987 completed Blanca [place], RMA null, [place] [facility] 06/17/2024 15:41:31 DTaP, unspecified formulation 09/15/1988 completed Blanca Christian, RMA null, [place] [facility] 06/17/2024 15:41:31 DTaP, unspecified formulation 1986 completed Blanca Christian, RMA null, [facility] 06/17/2024 15:41:31 DTaP, unspecified formulation 11/04/1991 completed Blanca [place], RMA null, [facility] 06/17/2024 15:41:31 DTaP, unspecified formulation 1986 completed Blanca Christian, RMA null, [facility] 06/17/2024 15:41:31 DTaP, unspecified formulation 02/24/1987 completed Blanca [place], RMA null, [place] [facility] 06/17/2024 15:41:31 Past Encounters Encounter ID Performer Location Encounter Start Date Encounter Closed Date Diagnosis/Indication Diagnosis SNOMED-CT Code Diagnosis ICD10 Code Diagnosis Note [id number] Anuel Fletcher DPM [facility] [place] [address] [address] 03/28/2024 15:23:52 04/08/2024 14:30:32 Plantar fasciitis of right foot 9070054574 7002005 M72.2 Pain in right foot 57425 48079 51782 M79.671 Plantar fasciitis 909749 003 M72.2 [id number] ZAID [facility] [address], [facility] [address] [place] [address] 04/04/2024 15:21:05 04/05/2024 14:27:02 [id number] Lizeth ortiz MD [facility] Primary Care [facility] [address] [facility] [address] [place] [address] 06/17/2024 15:23:06 06/17/2024 16:23:25 Screening - NAD 223333701 Z13.9 Get yearly flu shotCan do Tdap if not doneCan do COVID 19 boosters, states 06/17/2024 that he does not 'do COVID vaccines' RTC in 3 months, do labs, ER if worse, he and his mother did verbalize his understand ing of the above Plantar fa sciitis of right foot 3455967878 6217150 M72.[address] Fletcher Schizophrenia [id number] F 20.9 On olanzapine 20mg dailyOn prazosinOn UzedySees Dr Allison Screening for cardiovascular system disease 718748468 Z13.6 Vitamin D deficiency 347 06385 E55.9 Excessive cerumen in ear canal 327640627 H61.23 Mild flaky cerumenAdv ised to use debrox [id number] Lizeth ortiz MD [facility] Primary Care [facility] [address] [facility] [address] [place] [address] 07/10/2024 14:47:16 07/10/2024 15:10:09 Health Concerns Section Related Observation LastModified by Organization Detai ls LastModified Time None Recorded Concern Status LastModified by Organization Details LastModified Time None Recorded Advance Directives Directive N: Payers Encounter Date Sequence Insurance Name Policy Number Policy Chaparro Covered Member ID Chaparro Member ID Guarantor Name 03/28/2024 1 [place] Silvano Ortiz Hiren [id number] Silvano Hiren 03/28/2024 2 [place] OR MEDICARE REPLACEMENT PRIMARY) Silvano Hiren [id number] Silvano Hiren 04/04/2024 1 [place] Silvano Ortiz Hiren [id number] Silvano Hiren 04/04/2024 2 [place] REPLACEMENT PRIMARY) Silvano Hiren [id number] Silvano Hiren 06/17/2024 1 [place] Silvano Ortiz Hiren [id number] Silvano Hiren 06/17/2024 2 [place]ICARE REPLACEMENT PRIMARY) Silvano Hiren [id number] Silvano Hiren Notes Date Note Type Note Provider Name and Address Organization Details Recorded Time 5 text/html Pt RTC for cont c/o PFitis, Rt foot. Pain improved w/ previous tx. Anuel Fletcher DPM [address], [place], [address], [employer] 04/01/2024 10:00:00 5 text/html Pt is one wk s/p injection and tx for retro-calcaneal spur and pain. Anuel Fletcher DPM [address], [place], [address], [employer] 04/05/2024 08:14:01 5 text/html OV : Here to establish care Present Hx:Plantar faciitisSchizophrenia Here to discuss above and get labs, he does see Dr Allison the psychiatrist Lizeth Briggs MD [address], [place], [address], [employer] 06/17/2024 16:23:46
--- OUTSIDE RECORDS SUMMARY | 2024-07-17 14:32 | XMS_ITS | Data Portability ---
Author Organization [facility] OFFICE Address [address] [place] [id number] Care Team Providers Care Animal Care Provider Name Role Phone SCARLET KHANNA Primary Care Provider Assessment No assessment recorded. Plan of Treatment Reminders Order Date Submit Date Provider Last Modified By Organization Details Last Modified Time Details Appointments None recorded. Lab None recorded. Referral None recorded. Procedures None recorded. Surgeries None recorded. Imaging electrocard iogram 2019 020 CJ Not available 0 09:40:31 Medication Orders None recorded. Patient TargetsNo targets recorded. Patient InstructionsNo instructions recorded. Reason for Referral None Reported. Results Created Date Observation Date Name Description Value Unit Range Abnormal Flag Note LastModifiedBy Organization Detail LastModifiedTime 08/22/19 20 08/13/2019 elect rocar diogr am No observ ation record ed. [email or web address] Not Available 2019 15:55:41 09/03/19 20 08/27/2019 , echo ardio gram No observ ation record ed. [email or web address] Not Available 2019 11:26:19 09/11/19 20 08/27/2019 arline r monit or No observ ation record ed. [email or web address] Not Available 2019 11:44:06 Result Notes None recorded. Problems Name Problem SNOMED Code Status Onset Date Resolution Date Notes Provider Name and Address Organization Details Recorded Time Schizoaffective disorder 87560968 Active 2019 Paola warner, [facility] 0 13:07:15 Anxiety 01261250 Active 2019 Paola warner, [facility] 0 13:07:26 Depressive disorder 93296554 Active 2019 Paola warner, [facility] 0 13:07:43 Problem Notes None recorded. Procedures Surgical History Date Name Laterality Status Provider Name and Address Organization Details Recorded Time Appendectomy completed Paola [facility] 08/19/2019 13:11:55 Imaging Results Imaging Date Name Status LastModified by Organization Details LastModified Time 08/13/2019 electrocardiogram completed [email or web address] Informa tion not available 08/22/2019 15:55:41 08/27/2019 US, echocardiogram completed Inform ation not available 09/03/2019 11:26:19 08/27/2019 holter monitor completed Informatio n not available 09/11/2019 11:44:06 Procedure Notes None recorded. Medical Equipment None Reported. Allergies No known drug allergies Medications Name Sig Start Date Stop Date Status Note LastModified by Organization Details LastModified Time azithromyc in 250 mg tablet active pt not currently taking 08/19/19 Not Available Not Available Not Available acetazolam steve 125 mg tablet active pt not currently taking 08/19/19 Not Available Not Available Not Available prednisone 20 mg tablet active pt not currently taking 08/19/19 Not Available Not Available Not Available hydroxyzin e HCl 50 mg tablet 1 prn active pt not currently taking 08/19/19 Not Available Not Available Not Available fluphenazi ne 5 mg tablet active pt not currently taking 08/19/19 Not Available Not Available Not Available Benadryl 25 mg capsule Take 1 capsule as needed by oral route. active Not Available Not Available No t Available escitalopr am 10 mg tablet active pt not currently taking 08/19/19 Not Available Not Available Not Available escitalopr am 20 mg tablet active pt not currently taking 08/19/19 Not Available Not Available Not Available melatonin 5 mg prn active Not Available Not A vailable Not Available Invega Sustenna 234 mg/1.5 mL intramuscu lar syringe 1 q month active Not Available Not Available No t Available Vitals Date Recorded Body weight Heart rate Respiratory rate Oxygen saturation Oxygen saturation in Arterial blood by Pulse oximetry Body mass index (BMI) Body height Systolic blood pressure Diastolic blood pressure Provider Name and Address Organization Details Last Updated DateTime 0 08296.0 3 g 94 /min 18 /min 97 % 97 % 30.4 kg/m2 175.26 cm 108 mm[Hg] 78 mm[Hg] Paola Torrez [place] [facility] 0 13:04:14 Date Recorded Body height Body mass index (BMI) Body weight Heart rate Respiratory rate Oxygen saturation Oxygen saturation in Arterial blood by Pulse oximetry Systolic blood pressure Diastolic blood pressure Provider Name and Address Organization Details Last Updated DateTime 0 175.26 cm 29.8 kg/m2 48038.6 6 g 102 /min 18 /min 98 % 98 % 120 mm[Hg] 70 mm[Hg] Paolamaribell Torrez [facility] 0 12:20:04 Social History Question Answer Notes LastModified by [facility] Details LastModified Time Tobacco Smoking Status Never Smoker Paola Torrez [facility] 08/19/2019 13:09:56 What Is Your Level Of Alcohol Consumption? None Information not available 08/19/2019 What Is Your Level Of Caffeine Consumption? None Decaf Only [email or web address] Information not available 08/19/2019 How Much Tobacco Do You Chew? None Information not available 08/19/2019 What Type Of Diet Are You Following? REGULAR [email or web address] Information not available 08/19/2019 Which Illicit Or Recreational Drugs Have You Used? None [email or web address] Information not available 08/19/2019 Do You Or Have You Ever Used E-cigarettes Or Vape? Never Used Electronic Cigarettes [email or web address] Information not available 08/19/2019 Marital Status Single [email or web address] Informatio n not available 08/19/2019 What Was The Date Of Your Most Recent Tobacco Screening? 08/19/2019 Information not available 09/20/2019 How Many Children Do You Have? 0 [email or web address] Information not available 08/19/2019 Do You Or Have You Ever Used Smokeless Tobacco? Never Used Smokeless Tobacco [email or web address] Information not available 08/19/2019 How Much Tobacco Do You Smoke? No Information not available 09/20/2019 How Many Years Have You Smoked Tobacco? 0 Information not available 09/20/2019 Sex: Unknown Functional Status Question Answer Note LastModified by [facility] Details LastModified Time What is your exercise level? Occasional [email or web address] Information not available 08/19/2019 Mental Status None recorded. Family History Relationship Description Onset Age of this Age Resolved Age Notes LastModified by Organization Details LastModified Time Father No current problems or disability heart attack , diabet es [email or web address] Not available 08/19/2019 13:09:19 Mother No current problems or disability [email or web address] Not available 10/2019 13:08:30 Medical History Condition Response Depression Y Past Encounters Encounter ID Performer Location Encounter Start Date Encounter Closed Date Diagnosis/Indication Diagnosis SNOMED-CT Code Diagnosis ICD10 Code Diagnosis Note [id number] Michael Hernandez MD [facility] [address] [place] [address] 08/19/2019 12:12:19 08/19/2019 16:45:20 Palpitations 50573931 R00.2 With ER visit recently.C heck 2D echo to rule out structural heart diseaseChe ck 24 Holter monitorCon tinue Invega for now unless work up reveal arrhythmia Chest pain 75303366 R07. 9 With no significan t risk factors and pain happening in the setting of palpitatio ns.Check 2D echo and 24 Holter monitor Schizophrenia 84921401 F 21.9 on Invega once a month injection. QT interval normal. It is associated with tachycardi a. WIll plan 24 holter [id number] Michael Hernandez MD [facility] [address] [place] [address] 09/23/2019 11:54:30 09/23/2019 15:13:27 Palpitations 62626425 R00.2 Resolved *Had ECHO done in 08/27/19 showed borderline LVH, normal global systolic function , EF 60-65%. There is mild thickening of mitral valve anterior leaflet. There is trace mitral regurgitat ion. There is trace tricuspid regurgitat ion . *Had unremarkab le holter Chest pain 58448092 R07. 9 With no significan t risk factors and pain happening in the setting of palpitatio ns.That also resolved Schizophrenia 04746454 F 21.9 on Invega once a month injection. QT interval normal. No arrhythmia on Holter Health Concerns Section Related Observation LastModified by Organization Detai ls LastModified Time None Recorded Concern Status LastModified by Organization Details LastModified Time None Recorded Advance Directives Directive None Recorded Payers Insurance Date Sequence Insurance Name Policy Number Policy Chaparro Covered Member ID Chaparro Member ID Guarantor Name 08/19/2019 2 [place] [employer] Silvano Maradiaga [id number] Silvano Maradiaga 09/20/2019 1 [place]ARE-[place] (MEDICARE) Silvano Maradiaga [id number] Silvano Maradiaga 09/23/2019 2 MED[place]ID-[place]: [facility] PUBLIC [facility]ID Silvano Maradiaga [id number] Silvano Maradiaga Notes Date Note Type Note Provider Name and Address Organization Details Recorded Time 08/19/2019 text/html 33 year-old male with history of schizophrenia who presents for cardiac consultation with a chief complaint of episode of heart palpitations. He is on intramuscular injection medication for schizophrenia that his mother is concerned about cardiac side effects. He is no on oral agents per mother as IM medicine once a month provides better compliance (Invega). He had ER visit on 07/18/19 with palpitations, chest pain , left arm pain and sob which lasted about 20 minutes and resolved by the time he got to ER. No tobacco abuse. Family history of heart disease and heart attack. Heart disease in the family. Kt Hernandez [place], [place] - [facility] 08/19/2019 16:45:18 09/23/2019 text/html 09/23/19 33 year-old male with history of schizophrenia who presents for cardiac consultation with a chief complaint of episode of heart palpitations. He completed echocardiogram and Holter monitor. Returns for results. Since last visit he feels well with no recurrence of palpitations. Also no longer has chest pain. *Had ECHO done in 08/27/19 showed borderline LVH, normal global systolic function , EF 60-65%. There is mild thickening of mitral valve anterior leaflet. There is trace mitral regurgitation. There is trace tricuspid regurgitation . *Had unremarkable holter He is on intramuscular injection medication for schizophrenia that his mother is concerned about cardiac side effects. He is no on oral agents per mother as IM medicine once a month provides better compliance (Invega). He had ER visit on 07/18/19 with palpitations, chest pain , left arm pain and sob which lasted about 20 minutes and resolved by the time he got to ER. No tobacco abuse. Family history of heart disease and heart attack. Heart disease in the family. Results from this visit, or from the past: EKG 08/19/19 Normal variant of ECG 09/23/19*Had ECHO done in 08/27/19 showed borderline LVH, normal global systolic function , EF 60-65%. There is mild thickening of mitral valve anterior leaflet. There is trace mitral regurgitation. There is trace tricuspid regurgitation .*Had unremarkable [email or web address]/16/20 24hr HOLTER MONITOR: Unremarkable holter. Kt warner, [place] - [facility] 09/23/2019 15:13:25
--- OUTSIDE RECORDS SUMMARY | 2024-07-17 14:32 | XMS_ITS | Patient Health Record ---
Author Organization 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 Name Role Phone Kamari Lord MD Primary Care Provider Julio Fine Unavailable [phone] Nicolas Allison Unavailable [phone] Migration, Provider Unavailable Unavailable Allergies No Known Allergies Reason For Referral No Information Medications Medication SIG (Take, Route, Frequency, Duration) Notes Start Date End Date Status Zolpidem Tartrate 5 MG Oral for 30 Days Not-Taking OLANZapine 20 MG 1 tablet [...] Once a day for 90 days Active Immunizations Vaccine Route Administration Date Status Comme nts DTaP Unknown 1986 Administered DTaP Unknown 1986 Administered DTaP Unknown 02/24/1987 Administered DTaP Unknown 09/15/1988 Administered DTaP Unknown 11/04/1991 Administered Hep B, unspecified formulation Unknown 10/25/1994 Admin istered Hib, unspecified formulation Unknown 02/22/1988 Adminis tered MMR Unknown 11/27/1987 Administered MMR Unknown 12/14/1991 Administered OPV Unknown 1986 Administered OPV Unknown 1986 Administered OPV Unknown 02/24/1987 Administered OPV Unknown 09/15/1988 Administered Pfizer Biontech Covid-19 Vac cine 2nd dose Unknown 06/13/2020 Administered Pfizer [employer]ion[employer] Covid-19 Vac cine 2nd dose Unknown 07/08/2020 Administered Tdap Unknown 08/04/2009 Administered Social History Tobacco Use: Social History Observation Description Date Details (start date - stop date) Never Smoker NA - NA Sex Assigned At : Social History Observation Description Sex Assigned At Male Tobacco Control (Standard) Question Answer Notes Tobacco use: Nonsmoker Problems Problem Type SNOMED Code ICD Code Onset Dates Problem Status W/U Status Risk Notes Problem Paranoid schizophrenia (79283003) Paranoid schizophrenia (F20.0) Active confirmed Problem Generalized anxiety disorder (08108749) Generalized anxiety disorder (F41.1) Active confirmed Problem Insomnia (387964322) Other insomnia (G47.09) Active confirmed Problem Obsessive compulsive disorder (451537836) Other obsessive-compuls arron disorder (F42.8) Active confirmed Vital Signs Heart Rate 81 /min 07/15/2024 Height-cm 175.26 cm 07/15/2024 Blood pressure diastolic 50 mm Hg 07/15/2024 Weight-kg 97.52 kg 07/15/2024 Height 69.00 in 07/15/2024 Blood pressure systolic 116 mm Hg 07/15/2024 Weight 215 lbs 07/15/2024 BMI 31.75 kg/m2 07/15/2024 Encounters Encounter Location Date Provider Diagnosis [place] [address] [facility] [address] [place] [address] [facility] [place] [address] [facility] [address] [place] [address] 06/14/2024 Nicolas Allison On [facility] drug therapy V58.69 [facility] [place] [address] [facility] [address] [place] [address] 07/12/2024 Nicolas Keegan [facility] [address] [facility] [address] [place] [address] 07/15/2024 Nicolasvirgen Allison Paranoid schizophren ia F20.0 [place] [address] [facility] [address] [place] [address] 08/04/2023 Provider Migration [facility] [place] [address] [facility] [address] [place] [address] 08/31/2023 Julio Lee [facility] [place] [address] [place] [address] 09/04/2023 Julio Lee Paranoid schizophren ia F20.0 [facility], [facility] [address] [place] [address] 10/02/2023 Nicolas Keegan [facility], [facility] [address] [place] [address] 10/30/2023 Nicolas Keegan Paranoid schizophren ia F20.0 [facility], [facility] [address] [place] [address] 11/24/2023 Julio Lee Paranoid schizophren ia F20.0 ; Generalized anxiety disorder F41.1 ; Other obsessive-compulsive disorder F42.8 and Other insomnia G47.09 [facility], [facility] [address] [place] [address] 11/29/2023 Nicolas Keegan Paranoid schizophren ia F20.0 [facility], [facility] [address] [place] [address] 12/22/2023 Nicolas Keegan [facility], [facility] [address] [place] [address] 12/28/2023 Nicolas Keegan Paranoid schizophren ia F20.0 [facility], [facility] [address] [place] [address] 01/24/2024 Julio Lee Paranoid schizophren ia F20.0 ; Generalized anxiety disorder F41.1 ; Other obsessive-compulsive disorder F42.8 and Other insomnia G47.09 [facility], [facility] [address] [place] [address] 01/26/2024 Julio Lee Paranoid schizophren ia F20.0 [facility], [facility] [address] [place] [address] 02/23/2024 Julio Lee Paranoid schizophren ia F20.0 [facility], [facility] [address] [place] [address] 03/22/2024 Julio Lee Paranoid schizophren ia F20.0 [facility], [facility] [address] [place] [address] 04/19/2024 Julio Lee Paranoid schizophren ia F20.[address] [place] [address] 04/23/2024 Julio Lee Paranoid schizophren ia F20.0 ; Generalized anxiety disorder F41.1 ; Other obsessive-compulsive disorder F42.8 and Other insomnia G47.[address] [facility] [address] [place] [address] 05/17/2024 Julio Lee Paranoid schizophren ia F20.[address] [facility] [address] [place] [address] 06/10/2024 Nicolas Allison Encounter for screening for cardiovascular disorders Z13.6 ; Vitamin D deficiency E55.9 ; Hypothyroidism, unspecified type E03.9 ; Vitamin deficiency E56.9 ; Dyslipidemia E78.5 ; Encounter for screening for depression Z13.31 ; Paranoid schizophrenia F20.0 ; Generalized anxiety disorder F41.1 ; Other obsessive-compulsive disorder F42.8 and Other insomnia G47.[address] [facility] [address] [place] [address] 07/04/2024 Julio Lee Encounter for screening for depression Z13.31 ; Encounter for screening for cardiovascular disorders Z13.6 ; Paranoid schizophrenia F20.0 ; Generalized anxiety disorder F41.1 ; Other obsessive-compulsive disorder F42.8 and Other insomnia G47.[address] [address] 07/29/2023 Provider Migration [facility], [address] [address] 07/30/2023 Provider Migration [facility], [address] [address] 07/31/2023 Provider Migration [facility], [address] [address] 11/03/2023 Julio Lee [address] [address] 06/12/2024 Julio Lee Assessments Encounter Date Diagnosis (ICD Code) Assessment Notes Treatment Notes Treatment Clinical Notes Section Notes 09/04/2023 Paranoid schizophrenia (ICD-10 - F20.0) 10/30/2023 Paranoid schizophrenia (ICD-10 - F20.0) 12/28/2023 Paranoid schizophrenia (ICD-10 - F20.0) note administratively closed 01/24/2024 Paranoid schizophrenia (ICD-10 - F20.0) olanzapine 10mg daily Last Uzedy Injection given 12/28/23 1. Schizophrenia: - Patient is currently on olanzapine 10 mg daily and Uzedy (risperidone) 125 mg injection every four weeks. - Patient reports doing well on this regimen, with no recent hallucinations or significant side effects. Plan: - Continue olanzapine 10 mg daily - Continue Uzedy 125 mg injection every four weeks - Monitor for any changes in symptoms or side effects 2. Depression: - Patient is on venlafaxine ER 37.5 mg daily and reports no current depressive symptoms. Plan: - Continue venlafaxine ER 37.5 mg daily - Monitor for any changes in mood or depressive symptoms 3. Sleep disturbances: - Patient is taking prazosin 1 mg at bedtime and occasionally melatonin 10 mg for sleep. - Sleep is reportedly going well. Plan: - Continue prazosin 1 mg at bedtime - Patient may continue using melatonin 10 mg as needed for sleep - Monitor sleep quality and address any concerns in future visits 4. Anxiety: - Patient experiences anxiety in social situations and has a tendency to stare at objects when nervous. - The patient is not interested in counseling at this time. Plan: - Encourage patient to continue engaging in one-on-one social interactions and activities that they find comfortable - Reassess the need for counseling or additional interventions in future visits 5. Autism spectrum disorder: - Patient prefers one-on-one interactions and avoids large groups. - No significant concerns reported. Plan: - Encourage patient to continue engaging in preferred social activities and maintain connections with family and caregivers - Monitor for any changes in social functioning or behavior Follow-up: - Schedule a follow-up appointment in three months - Refill prescriptions for olanzapine, venlafaxine, and prazosin as needed 01/26/2024 Paranoid schizophrenia (ICD-10 - F20.0) 02/23/2024 Paranoid schizophrenia (ICD-10 - F20.0) 03/22/2024 Paranoid schizophrenia (ICD-10 - F20.0) 04/19/2024 Paranoid schizophrenia (ICD-10 - F20.0) 04/23/2024 Paranoid schizophrenia (ICD-10 - F20.0) olanzapine 20mg daily Last Uzedy Injection given 04/19/24 05/17/2024 Paranoid schizophrenia (ICD-10 - F20.0) Verified the injection dose and diagnosis 06/10/2024 Encounter for screening for cardiovascular disorders (ICD-10 - Z13.6) 06/10/2024 Vitamin D deficiency (ICD-10 - E55.9) 06/10/2024 Hypothyroidism, unspecified type (ICD-10 - E03.9) 06/10/2024 Vitamin deficiency (ICD-10 - E56.9) 06/10/2024 Dyslipidemia (ICD-10 - E78.5) 06/14/2024 On snf drug therapy (ICD9-CM - V58.69) Verified the injection dose and diagnosis 07/04/2024 Encounter for screening for depression (ICD-10 - Z13.31) 07/15/2024 Paranoid schizophrenia (ICD-10 - F20.0) Verified the injection dose and diagnosis 11/29/2023 Paranoid schizophrenia (ICD-10 - F20.0) 11/24/2023 Paranoid schizophrenia (ICD-10 - F20.0) olanzapine 20mg hs Last Uzedy Injection given 10/30/23 1. Schizophrenia: - Patient reports mild visual hallucinations, but overall improvement in symptoms. - Currently on olanzapine 20 mg nightly, Uzedy injection 125 mg monthly, and melatonin for sleep. Plan: - Continue olanzapine 20 mg nightly and Uzedy injection 125 mg monthly. - Monitor for any changes in hallucinations or other symptoms. - Follow up in two months. 2. Sleep disturbances: - Patient no longer taking Ambien, using melatonin for sleep instead. Plan: - Continue melatonin as needed for sleep. - Monitor sleep quality and consider re-evaluation of sleep aids if necessary. 3. Mood stability: - Patient's mood appears stable, with significant improvement noted since starting olanzapine and adjusting Uzedy injection schedule. Plan: - Continue current medications and monitor mood stability. - Encourage patient to report any changes in mood or concerning symptoms. 4. Anxiety: - Patient denies feeling anxious or nervous. Plan: - Continue to monitor for any signs of anxiety. - Encourage patient to report any concerns or changes in anxiety levels. 5. Social support: - Patient has been spending time with family and friends, providing a supportive environment. Plan: - Encourage patient to continue engaging in social activities and maintaining a strong support system. Follow-up: - Schedule a follow-up appointment in two months to assess patient's progress and medication effectiveness. 11/24/2023 Generalized anxiety disorder (ICD-10 - F41.1) on venlafaxine er 37.5mg prescribed by PCP 1. Schizophrenia: - Patient reports mild visual hallucinations, but overall improvement in symptoms. - Currently on olanzapine 20 mg nightly, Uzedy injection 125 mg monthly, and melatonin for sleep. Plan: - Continue olanzapine 20 mg nightly and Uzedy injection 125 mg monthly. - Monitor for any changes in hallucinations or other symptoms. - Follow up in two months. 2. Sleep disturbances: - Patient no longer taking Ambien, using melatonin for sleep instead. Plan: - Continue melatonin as needed for sleep. - Monitor sleep quality and consider re-evaluation of sleep aids if necessary. 3. Mood stability: - Patient's mood appears stable, with significant improvement noted since starting olanzapine and adjusting Uzedy injection schedule. Plan: - Continue current medications and monitor mood stability. - Encourage patient to report any changes in mood or concerning symptoms. 4. Anxiety: - Patient denies feeling anxious or nervous. Plan: - Continue to monitor for any signs of anxiety. - Encourage patient to report any concerns or changes in anxiety levels. 5. Social support: - Patient has been spending time with family and friends, providing a supportive environment. Plan: - Encourage patient to continue engaging in social activities and maintaining a strong support system. Follow-up: - Schedule a follow-up appointment in two months to assess patient's progress and medication effectiveness. 07/04/2024 Encounter for screening for cardiovascular disorders (ICD-10 - Z13.6) 06/10/2024 Encounter for screening for depression (ICD-10 - Z13.31) 11/24/2023 Other obsessive-compul sive disorder (ICD-10 - F42.8) 1. Schizophrenia: - Patient reports mild visual hallucinations, but overall improvement in symptoms. - Currently on olanzapine 20 mg nightly, Uzedy injection 125 mg monthly, and melatonin for sleep. Plan: - Continue olanzapine 20 mg nightly and Uzedy injection 125 mg monthly. - Monitor for any changes in hallucinations or other symptoms. - Follow up in two months. 2. Sleep disturbances: - Patient no longer taking Ambien, using melatonin for sleep instead. Plan: - Continue melatonin as needed for sleep. - Monitor sleep quality and consider re-evaluation of sleep aids if necessary. 3. Mood stability: - Patient's mood appears stable, with significant improvement noted since starting olanzapine and adjusting Uzedy injection schedule. Plan: - Continue current medications and monitor mood stability. - Encourage patient to report any changes in mood or concerning symptoms. 4. Anxiety: - Patient denies feeling anxious or nervous. Plan: - Continue to monitor for any signs of anxiety. - Encourage patient to report any concerns or changes in anxiety levels. 5. Social support: - Patient has been spending time with family and friends, providing a supportive environment. Plan: - Encourage patient to continue engaging in social activities and maintaining a strong support system. Follow-up: - Schedule a follow-up appointment in two months to assess patient's progress and medication effectiveness. 04/23/2024 Generalized anxiety disorder (ICD-10 - F41.1) on venlafaxine er 37.5mg prescribed by PCP 01/24/2024 Generalized anxiety disorder (ICD-10 - F41.1) on venlafaxine er 37.5mg prescribed by PCP 1. Schizophrenia: - Patient is currently on olanzapine 10 mg daily and Uzedy (risperidone) 125 mg injection every four weeks. - Patient reports doing well on this regimen, with no recent hallucinations or significant side effects. Plan: - Continue olanzapine 10 mg daily - Continue Uzedy 125 mg injection every four weeks - Monitor for any changes in symptoms or side effects 2. Depression: - Patient is on venlafaxine ER 37.5 mg daily and reports no current depressive symptoms. Plan: - Continue venlafaxine ER 37.5 mg daily - Monitor for any changes in mood or depressive symptoms 3. Sleep disturbances: - Patient is taking prazosin 1 mg at bedtime and occasionally melatonin 10 mg for sleep. - Sleep is reportedly going well. Plan: - Continue prazosin 1 mg at bedtime - Patient may continue using melatonin 10 mg as needed for sleep - Monitor sleep quality and address any concerns in future visits 4. Anxiety: - Patient experiences anxiety in social situations and has a tendency to stare at objects when nervous. - The patient is not interested in counseling at this time. Plan: - Encourage patient to continue engaging in one-on-one social interactions and activities that they find comfortable - Reassess the need for counseling or additional interventions in future visits 5. Autism spectrum disorder: - Patient prefers one-on-one interactions and avoids large groups. - No significant concerns reported. Plan: - Encourage patient to continue engaging in preferred social activities and maintain connections with family and caregivers - Monitor for any changes in social functioning or behavior Follow-up: - Schedule a follow-up appointment in three months - Refill prescriptions for olanzapine, venlafaxine, and prazosin as needed 01/24/2024 Other obsessive-compul sive disorder (ICD-10 - F42.8) 1. Schizophrenia: - Patient is currently on olanzapine 10 mg daily and Uzedy (risperidone) 125 mg injection every four weeks. - Patient reports doing well on this regimen, with no recent hallucinations or significant side effects. Plan: - Continue olanzapine 10 mg daily - Continue Uzedy 125 mg injection every four weeks - Monitor for any changes in symptoms or side effects 2. Depression: - Patient is on venlafaxine ER 37.5 mg daily and reports no current depressive symptoms. Plan: - Continue venlafaxine ER 37.5 mg daily - Monitor for any changes in mood or depressive symptoms 3. Sleep disturbances: - Patient is taking prazosin 1 mg at bedtime and occasionally melatonin 10 mg for sleep. - Sleep is reportedly going well. Plan: - Continue prazosin 1 mg at bedtime - Patient may continue using melatonin 10 mg as needed for sleep - Monitor sleep quality and address any concerns in future visits 4. Anxiety: - Patient experiences anxiety in social situations and has a tendency to stare at objects when nervous. - The patient is not interested in counseling at this time. Plan: - Encourage patient to continue engaging in one-on-one social interactions and activities that they find comfortable - Reassess the need for counseling or additional interventions in future visits 5. Autism spectrum disorder: - Patient prefers one-on-one interactions and avoids large groups. - No significant concerns reported. Plan: - Encourage patient to continue engaging in preferred social activities and maintain connections with family and caregivers - Monitor for any changes in social functioning or behavior Follow-up: - Schedule a follow-up appointment in three months - Refill prescriptions for olanzapine, venlafaxine, and prazosin as needed 04/23/2024 Other obsessive-compul sive disorder (ICD-10 - F42.8) 06/10/2024 Paranoid schizophrenia (ICD-10 - F20.0) olanzapine 20mg daily Last Uzedy Injection given 04/19/24 11/24/2023 Other insomnia (ICD-10 - G47.09) stable, Melatonin hs prn 1. Schizophrenia: - Patient reports mild visual hallucinations, but overall improvement in symptoms. - Currently on olanzapine 20 mg nightly, Uzedy injection 125 mg monthly, and melatonin for sleep. Plan: - Continue olanzapine 20 mg nightly and Uzedy injection 125 mg monthly. - Monitor for any changes in hallucinations or other symptoms. - Follow up in two months. 2. Sleep disturbances: - Patient no longer taking Ambien, using melatonin for sleep instead. Plan: - Continue melatonin as needed for sleep. - Monitor sleep quality and consider re-evaluation of sleep aids if necessary. 3. Mood stability: - Patient's mood appears stable, with significant improvement noted since starting olanzapine and adjusting Uzedy injection schedule. Plan: - Continue current medications and monitor mood stability. - Encourage patient to report any changes in mood or concerning symptoms. 4. Anxiety: - Patient denies feeling anxious or nervous. Plan: - Continue to monitor for any signs of anxiety. - Encourage patient to report any concerns or changes in anxiety levels. 5. Social support: - Patient has been spending time with family and friends, providing a supportive environment. Plan: - Encourage patient to continue engaging in social activities and maintaining a strong support system. Follow-up: - Schedule a follow-up appointment in two months to assess patient's progress and medication effectiveness. 07/04/2024 Paranoid schizophrenia (ICD-10 - F20.0) olanzapine 20mg daily Last Uzedy Injection given 06/14/24 07/04/2024 Generalized anxiety disorder (ICD-10 - F41.1) 06/10/2024 Generalized anxiety disorder (ICD-10 - F41.1) on venlafaxine er 37.5mg prescribed by PCP 01/24/2024 Other insomnia (ICD-10 - G47.09) stable, Melatonin hs prn, Prazosin 1mg hs 1. Schizophrenia: - Patient is currently on olanzapine 10 mg daily and Uzedy (risperidone) 125 mg injection every four weeks. - Patient reports doing well on this regimen, with no recent hallucinations or significant side effects. Plan: - Continue olanzapine 10 mg daily - Continue Uzedy 125 mg injection every four weeks - Monitor for any changes in symptoms or side effects 2. Depression: - Patient is on venlafaxine ER 37.5 mg daily and reports no current depressive symptoms. Plan: - Continue venlafaxine ER 37.5 mg daily - Monitor for any changes in mood or depressive symptoms 3. Sleep disturbances: - Patient is taking prazosin 1 mg at bedtime and occasionally melatonin 10 mg for sleep. - Sleep is reportedly going well. Plan: - Continue prazosin 1 mg at bedtime - Patient may continue using melatonin 10 mg as needed for sleep - Monitor sleep quality and address any concerns in future visits 4. Anxiety: - Patient experiences anxiety in social situations and has a tendency to stare at objects when nervous. - The patient is not interested in counseling at this time. Plan: - Encourage patient to continue engaging in one-on-one social interactions and activities that they find comfortable - Reassess the need for counseling or additional interventions in future visits 5. Autism spectrum disorder: - Patient prefers one-on-one interactions and avoids large groups. - No significant concerns reported. Plan: - Encourage patient to continue engaging in preferred social activities and maintain connections with family and caregivers - Monitor for any changes in social functioning or behavior Follow-up: - Schedule a follow-up appointment in three months - Refill prescriptions for olanzapine, venlafaxine, and prazosin as needed 04/23/2024 Other insomnia (ICD-10 - G47.09) stable, Melatonin hs prn, Prazosin 1mg hs 06/10/2024 Other obsessive-compul sive disorder (ICD-10 - F42.8) 07/04/2024 Other obsessive-compul sive disorder (ICD-10 - F42.8) 07/04/2024 Other insomnia (ICD-10 - G47.09) worse week prior to injection 06/10/2024 Other insomnia (ICD-10 - G47.09) stable, Melatonin hs prn, Prazosin 1mg hs 11/24/2023 Other he has failed antipsychotic monotherapy 1. Schizophrenia: - Patient reports mild visual hallucinations, but overall improvement in symptoms. - Currently on olanzapine 20 mg nightly, Uzedy injection 125 mg monthly, and melatonin for sleep. Plan: - Continue olanzapine 20 mg nightly and Uzedy injection 125 mg monthly. - Monitor for any changes in hallucinations or other symptoms. - Follow up in two months. 2. Sleep disturbances: - Patient no longer taking Ambien, using melatonin for sleep instead. Plan: - Continue melatonin as needed for sleep. - Monitor sleep quality and consider re-evaluation of sleep aids if necessary. 3. Mood stability: - Patient's mood appears stable, with significant improvement noted since starting olanzapine and adjusting Uzedy injection schedule. Plan: - Continue current medications and monitor mood stability. - Encourage patient to report any changes in mood or concerning symptoms. 4. Anxiety: - Patient denies feeling anxious or nervous. Plan: - Continue to monitor for any signs of anxiety. - Encourage patient to report any concerns or changes in anxiety levels. 5. Social support: - Patient has been spending time with family and friends, providing a supportive environment. Plan: - Encourage patient to continue engaging in social activities and maintaining a strong support system. Follow-up: - Schedule a follow-up appointment in two months to assess patient's progress and medication effectiveness. 04/23/2024 Other 1. Schizophrenia: - Patient reports [...] Patient to continue monthly injections as scheduled. 06/10/2024 Los Schaefer is a patient with [...] Recommend lab work to be done at [place] [facility] Use Assessment: Patient denies current use [...] ensure accuracy, there may be errors, including business services intern inaccuracies and misspellings of medication names. This document should not be considered a verbatim record, and any discrepancies should be verified with the provider. 07/04/2024 Los Rick, male patient with a history of psychiatric issues, presents for follow-up with reports of intermittent insomnia and overall stable condition on current medication regimen. Psychiatric disorder (unspecified) Assessment: Patient is currently stable on olanzapine and Uzedy administered every 28 days. He reports improved symptoms with olanzapine, which he takes at bedtime. The patient's caregiver notes that forgetting the olanzapine can trigger problems. Previous auditory hallucinations are no longer present. The patient has tried various sleep aids in the past, including zolpidem, trazodone, and hydroxyzine. Plan: - Continue olanzapine (dosage not specified) at bedtime - Continue Uzedy injection every 28 days (next dose due July 12) - Discontinue venlafaxine - Monitor insomnia symptoms - Follow up as scheduled for next Uzedy injection Insomnia Assessment: Patient experiences intermittent insomnia, particularly in the days leading up to his next Uzedy injection. Sleep patterns are irregular, with reports of sleeping for 2 days followed by 2 days of wakefulness before collapsing. This pattern occurs approximately 3-4 days before the next injection. Plan: - Continue current medication regimen - Monitor sleep patterns - No new sleep aids prescribed at this time Hyperthyroidism Assessment: Recent thyroid function test reveals a low TSH of 0.398, indicating hyperthyroidism . Plan: - Monitor thyroid function Hypertriglyceri demia Assessment: Recent lab results show elevated triglycerides at 212 mg/dL (target is below 150 mg/dL). Plan: - Recommend diet and exercise modifications to address elevated triglycerides the note is transcribed using speech recognition software. It is a reflection of a visit with the patient. It might have some inaccuracy, including medication names and transcribing errors, though efforts have been made to correct them. Plan Of Treatment Pending Test Test Name Order Date LIPID PANEL, STANDARD (7600) 06/10/2024 THYROID PANEL WITH TSH (7444) 06/10/2024 COMPREHENSIVE METABOLIC PANEL (21357) CBC (INCLUDES DIFF/PLT) (6399) HEMOGLOBIN A1c (496) 06/10/2024 VITAMIN B12/FOLATE, SERUM PANEL (7065) 0 06/10/2024 VITAMIN D,25-OH,TOTAL,IA (29332) 025 Next Appt Details Provider Name:Nicolas Allison , 08/16/2024 04:00:00 PM, [address], [address], [place], [address], Provider Name:Julio ortiz, 09/05/2024 01:15:00 PM, [address], [address], [place], [address], Insurance Providers Payer Name Payer Address Payer Phone Subscriber Number Group Number Insured Name Patient Relationship to Insured Coverage Start Date Coverage End Date Medicare-I l Medicare [address] [place] [phone] [id number] SANIYA RICK Self - patient is the insured Medicaid-I l Medicaid [address] [address] [place] [address] [id number] SANIYA RICK Self - patient is the insured Medications Administered Medication Instructions Date of Administration Dosage Notes Uzedy 09/04/2023 125 mg Uzedy 10/02/2023 125 mg Uzedy 10/30/2023 125 mg Uzedy 11/29/2023 125 mg Uzedy 12/28/2023 125 mg Uzedy 01/26/2024 125 mg Uzedy 02/23/2024 125 mg Uzedy 03/22/2024 125 mg watched gerald Ramos orantesjohnny Uzedy 04/19/2024 125 mg Uzedy 05/17/2024 125 mg Uzedy 06/14/2024 125 mg Medical (General) History Medical History History ICD Code Problems: Asperger's disorder Chronic paranoid schizophrenia Generalized anxiety disorder History of high risk medication Long-term current use of antipsychotic m edication Obsessive-compulsive disorder Paranoid schizophrenia Persistent insomnia Schizophrenia ,
[2024-07-17 17:44] LABS: Hemoglobin A1C 5.3 % (<5.7)
== END 2024-07-17 14:22 | disposition home or self-care (01) ==
LOC: ANHLAB 14:25
PROVIDERS: PCP Internal Medicine; Visit Provider Internal Medicine
DX: R73.9 Hyperglycemia, unspecified (principal)
CPT/HCPCS: 36415; 83036

== ENCOUNTER 2024-08-20 13:22 | Outpatient (CLI) | payer MEDICARE, MEDICAID, SELFPAY ==
[2024-08-20 14:29] LABS: Alanine Aminotransferase 43 U/L (6-50); Albumin Level 4.8 g/dL (3.5-5.1); Alkaline Phosphatase 101 U/L (38-126); Anion Gap 9 mmol/L (4-12); Aspartate Amino Transferase 32 U/L (17-59); Bilirubin,Total 0.4 mg/dL (0.2-1.3); Blood Urea Nitrogen 16 mg/dL (9-20); Carbon Dioxide 25 mmol/L (22-30); Chloride 104 mmol/L (98-107); Cholesterol 222 mg/dL (0-200); Estimated Glomerular Filt Rate > 60; Glucose 98 mg/dL (65-110); HDL Direct 43 mg/dL; Potassium 4.7 mmol/L (3.4-5.0); Sodium 138 mmol/L (137-145); Total Protein 8.1 g/dL (6.3-8.2); Triglycerides 182 mg/dL (<150)
--- OUTSIDE RECORDS SUMMARY | 2024-08-20 14:31 | XMS_ITS | Data Portability ---
Author Organization [facility] [employer], Main Office Address [address] [place] [address] Care Team Providers Care Client Operations Manager Name Role Phone RAMONA SAMUEL Psychiatrist Assessment Encounter Date Assessment Date Assessment LastModified by Organization Details LastModified Time 08/19/2024 08/19/2024 06/10/2024: Dr Lord Chol 210, TG 212 07/10/2024: FT4 WNL 07/17/2024: [facility]C 5[email or web address] Not available 08/19/2024 17:22:02 Plan of Treatment Reminders Order Date Submit Date Provider Last Modified By Organization Details Last Modified Time Details Appointments Follow Up 15 2024 03:00P M Lizeth mcbride MD Not available Not available Not available Lab vitamin D, 25-hydrox y, total, serum [address] (Lab), [address] [place], [address], 08/19/2024 17:22:34 lipid panel, serum [address] (Lab), [address] [place], [address], 08/19/2024 17:22:34 CBC w/ auto diff [address] (Lab), [address] [place], [address], 08/19/2024 17:22:34 CMP, serum or plasma [address] (Lab), [address] [place], [address], 08/19/2024 17:22:34 TSH, serum or plasma [address] (Lab), [address] [place], [address], 08/19/2024 17:22:34 vitamin D, 25-hydrox y, total, serum 2024 025 [facility] (Lab), [address] [place], [address], 07/10/2024 15:02:03 lipid panel, serum 2024 025 [facility] (Lab), [address] [place], [address], 07/10/2024 15:01:48 CBC w/ auto diff 2024 025 [facility] (Lab), [address] [place], [address], 07/10/2024 15:03:36 TSH, serum or plasma 2024 025 [facility] (Lab), [address] [place], [address], 07/10/2024 15:03:22 CMP, serum or plasma 2024 025 [facility] (Lab), [address] [place], [address], 07/10/2024 15:01:31 Referral None recorded. Procedures None recorded. Surgeries None recorded. Imaging None recorded. Medication Orders ibuprofen 800 mg tablet 2024 025 [id number], [address] [place], [address], 06/17/2024 15:36:48 Patient TargetsNo targets recorded. Patient [...] Recorded Time Plantar fasciitis of right foot 7871498232034 9101 Active 2024 CAM Go, [place] [employer] [facility] [employer] [facility] 5 15:50:44 Pain in right foot 1690065967873 07 Active 2024 Anuel Fletcher DPM [address], [address], [place], [address], [employer] 5 09:55:57 Plantar fasciitis 711790580 Active 2024 Anuel Fletcher DPM [address], [address], [place], [address], [employer] 5 09:56:05 Schizophren ia 57035014 Active 2024 CAM Olson, [employer] [facility] [employer] [facility] 5 15:42:00 Asperger's disorder 54656907 Active 2024 CAM Olson, [employer] [facility] 15:42:25 Vitamin D deficiency 60084464 Active 2024 Lizeth mcbride MD [address], [address], [place], [address], [employer] [facility] [employer] [facility] 5 16:00:47 Excessive cerumen in ear canal 288897059 Active 2024 Lizeth mcbride MD [address], [address], [place], [address], [facility] [employer] [facility] 16:22:36 Thyroid hormone tests outside reference range 342405186 Active 2024 Lizeth mcbride MD [address], [address], [place], [address], [facility] [employer] [facility] 14:59:31 Hyperglycem ia 47310351 Active 2024 CAM Olson null, [facility] [employer] [facility] 12:21:04 Hyperlipide maribel 73585484 Active 2024 CAM Olson null, [facility] [employer] [facility] 14:57:49 Problem Notes None recorded. Procedures Surgical History Date Name Laterality Status Provider Name and Address Organization Details Recorded Time 03/28/19 25 Corticosteroid Injection completed Anuel Fletcher DPM [address], [address], [place], [address], [facility] [employer] [facility] 04/01/2024 09:56:23 Appendectomy completed CAM Olson [facility] [employer] [facility] 06/17/2024 15:47:37 Imaging Results None recorded. Procedure Notes None recorded. Medical Equipment None Reported. Allergies No known drug allergies Medications Name Sig Start Date Stop Date Status Note LastModified by Organization Details LastModified Time ibuprofen 800 mg tablet Take 1 tablet 3 times a day by oral route. 06/17 completed Not Available Not Available Not Available olanzapine 20 mg disintegra ting tablet Place 1 tablet every day by translin gual route. active Not Available Not Available No t Available Crestor 40 mg tablet Take 1 tablet every day by oral route. 08/19 completed sleeps all the time on it Not Available Not Available Not Available prazosin 08/19 completed Not Available Not Available Not Available Latuda 06/17 completed Not Available [...] Updated DateTime 5 177.8 cm 31.9 kg/m2 501480. 51 g 16 /min 98 [degF] 100 /min 96 % 96 % 120 mm[Hg] 80 mm[Hg] Kathy Montelongo [facility] [employer] 5 15:31:54 Date Recorded Body height Body mass index (BMI) Body weight Oxygen saturation Oxygen saturation in Arterial blood by Pulse oximetry Body temperature Heart rate Provider Name and Address Organization Details Last Updated DateTime 5 177.8 cm 31.7 kg/m2 558440. 91 g 98 % 98 % 97.9 [degF] 88 /min Kevin Gonzalez [facility] [employer] [facility] 5 15:27:34 Date Recorded Body height Body mass index (BMI) Body weight Body temperature Heart rate Systolic blood pressure Diastolic blood pressure Provider Name and Address Organization Details Last Updated DateTime 5 177.8 cm 31 kg/m2 45404.9 5 g 98.2 [degF] 84 /min 116 mm[Hg] 70 mm[Hg] Blanca Gonzales Gl[place] [employer] [facility] [employer] [facility] 5 15:51:29 Date Recorded Body height Provider Name an d Address Organization Details Last Updated DateTime 07/10/2024 177.8 cm Leida Berkowitz RN [facility] 07/10/2024 15:23:44 Date Recorded Body height Body mass index (BMI) Body weight Body temperature Heart rate Systolic blood pressure Diastolic blood pressure Provider Name and Address Organization Details Last Updated DateTime 5 177.8 cm 31.1 kg/m2 07499.5 4 g 98.3 [degF] 96 /min 134 mm[Hg] 72 mm[Hg] Blanca Gonzales [place] [employer] [facility] [employer] [facility] 5 17:15:48 Social History Question Answer Notes LastModified by Organizat ion Details LastModified Time Tobacco Smoking Status Never Smoker Kathy Montelongo [facility] [employer] 03/28/2024 15:33:07 Do You Have An Advance [...] Was Ill? No Information not available 06/17/2024 What Type Of Diet Are You Following? REGULAR Information not available 06/17/2024 What Is The Highest Grade Or Level Of School You Have Completed Or The Highest Degree You Have Received? [id number] Information not available 06/17/2024 What Is The Fluoride Status Of Your Home? Unknown Information not available 06/17/2024 Are There Any Guns Present In Your Home? No Information not available 06/17/2024 Where Do You Live? SingleLevelHouse Information not available 06/17/2024 Do You Have A Medical Power Of Ammonia Nitrate Operator? No Information not available 06/17/2024 What Was The Date Of Your Most Recent Tobacco Screening? 08/19/2024 Information not available 08/19/2024 Do You Have Any Pets? Yes Information [...] Your House? No Information not available 06/17/2024 Has Tobacco Cessation Counseling Been Provided? No N/a Information not available 06/17/2024 Have You Recently Traveled Abroad? No Information not available 06/17/2024 Sex: Male Functional Status Question Answer Note LastModified by Organizat ion Details LastModified Time Do you use any illicit or recreational drugs? No [employer] Information not available 06/17/2024 Do you or have you ever used any other forms of tobacco or nicotine? No [employer] Information not available 06/17/2024 What is your level of alcohol consumption? None [email or web address] Information not available 06/17/2024 Are you currently employed? No [employer] Information not available 06/17/2024 What is your exercise level? Heavy Information not available 06/17/2024 Mental Status Question Answer Note LastModified by Organization D etails LastModified Time Do you feel stressed (tense, restless, nervous, or anxious, or unable to sleep at night)? [id number] [email or web address] Information not available 06/17/2024 Family History Relationship Description Onset Age of this Age Resolved Age Notes LastModified by Organization Details LastModified Time Father Heart disease [email or web address] Not available 03/13 15:32:58 Father Diabetes mellitus [...] HEARING PROBLEMS N MUMPS N SHINGLES N DEPRESSION (INCLUDING POST ) Y BOWEL PROBLEMS N FAILED BACK SYNDROME N STROKE/TIA N ULCERS N BENIGN PROSTATIC HYPERPLASIA N MEASLES N HYPOTENSION N MYOCARDIAL INFARCTION N OBESITY N GERD/NAUSEA N ANEURYSM N URINARY/BLADDER/KIDNEY PROBLEMS N CORONARY ARTERY DISEASE (CAD) N Do you have Advance directive? N ADDICTION CONCERNS N Impotence N ENDOMETRIOSIS N USE OF BLOOD THINNERS N SKIN PROBLEMS N GASTROINTESTINAL DISORDER N PERIPHERAL VASCULAR DISEASE N MUSCLE,JOINT OR BONE PROBLEMS N GASTROINTESTINAL BLEEDING N BLOOD CLOTS N ASTHMA N CATARACTS N Abdominal Pain N ERECTILE DYSFUNCTION N ARTERIAL INSUFFICIENCY N VARICOSITIES N GI PROBLEMS N Low Testosterone N INFERTILITY N AIDS/HIV N CHEMOTHERAPY / RADIATION N LIVER DISEASE N MALE HYPOGONADISM N HYPERTENSION N Deficiency N TOURETTE'S N ANXIETY DISORDER N BLOOD TRANSFUSION N ANEMIA/BLOOD DISORDER N CHRONIC EAR INFECTIONS N TUBERCULOSIS N GLAUCOMA N FOOT PROBLEM N DIVERTICULITIS N SLEEP APNEA N CHICKENPOX N BACK INJECTIONS N ALLERGIES/HAYFEVER N INFECTIOUS DISEASE N PROSTATE N HEART ARRHYTHMIA N INSOMNIA N ESRD N HIGH CHOLESTEROL / HYPERLIPIDEMIA N HYPERTHYROIDISM [...] Brain Problems N HERPES N DEMENTIA N SEIZURES/EPILEPSY N HEADACHES/MIGRAINES N VASCULAR DISEASE N PACEMAKER N DIZZINESS N KIDNEY DISEASE N HEART DISEASE/HEART PROBLEMS N MULTIPLE SCLEROSIS N NEUROPSYCHOLOGICAL Y CARDIAC ARRHYTHMIA N CANCER: SPECIFY N Gall Stones N ATRIAL FIBRILLATION N PULMONARY EMBOLISM N AUTOIMMUNE DISEASE N Immunizations Vaccine Type Date Status Note Provider Nam e and Address Organization Details Recorded Time Hib, unspecified formulation 02/22/1988 completed Blanca Gonzales RMA null, [place] [facility] [place] [facility] 06/17/2024 15:41:31 MMR 11/27/1987 completed Blanca Gonzales RMA null, [facility] [employer] [facility] 06/17/2024 15:41:31 MMR 12/14/1991 completed Blanca Gonzales RMA null, [facility] [place] [employer] [facility] 06/17/2024 15:41:31 COVID-19, mRNA, LNP-S, PF, 30 mcg/0.3 mL dose 06/13/2020 completed Blanca Gonzales RMA null, [facility] 06/17/2024 15:41:31 COVID-19, mRNA, LNP-S, PF, 30 mcg/0.3 mL dose 07/08/2020 completed Blanca Gonzales RMA null, [facility] [employer] [facility] 06/17/2024 15:41:31 Tdap 08/04/2009 completed Blanca Gonzales RMA null, [place] [employer] [facility] 06/17/2024 15:41:31 Hep B, unspecified formulation 10/25/1994 completed Blanca Christian, RMA null, [place] [facility] 06/17/2024 15:41:31 OPV 09/15/1988 completed Blanca Christian, RMA null, [place] [facility] [place] [facility] 06/17/2024 15:41:31 OPV 1986 completed Blanca Madison, RMA null, [place] [facility] 06/17/2024 15:41:31 OPV 1986 completed Blanca Christian, RMA null, [place] [facility] 06/17/2024 15:41:31 OPV 02/24/1987 completed Blanca Christian, RMA null, [place] [facility] 06/17/2024 15:41:31 DTaP, unspecified formulation 09/15/1988 completed Blanca Madison, RMA null, [place] [facility] [place] [facility] 06/17/2024 15:41:31 DTaP, unspecified formulation 1986 completed Blanca Christian, RMA null, [place] [facility] [place] [facility] 06/17/2024 15:41:31 DTaP, unspecified formulation 11/04/1991 completed Blanca Christian, RMA null, [place] [facility] [place] [facility] 06/17/2024 15:41:31 DTaP, unspecified formulation 1986 completed Blanca Madison, RMA null, [place] [facility] [place] [facility] 06/17/2024 15:41:31 DTaP, unspecified formulation 02/24/1987 completed Blanca Madison, RMA null, [place] [facility] [place] [facility] 06/17/2024 15:41:31 Past Encounters Encounter ID Performer Location Encounter Start Date Encounter Closed Date Diagnosis/Indication Diagnosis SNOMED-CT Code Diagnosis ICD10 Code Diagnosis Note [id number] Anuel Fletcher DPM [facility] [place] [address] [address] 03/28/2024 15:23:52 04/08/2024 14:30:32 Plantar fasciitis of right foot 7187224568 6813912 M72.2 Pain in right foot 76215 26705 39088 M79.671 Plantar fasciitis 925153 003 M72.2 [id number] Anuel Fletcher DPM [facility] Podiatry [facility] [address] [facility] [address] [place] [address] 04/04/2024 15:21:05 04/05/2024 14:27:02 [id number] Lizeth ortiz MD [facility] Primary Care [facility] [address] [facility] 140 [facility] [place] [address] 06/17/2024 15:23:06 06/17/2024 16:23:25 Screening - NAD 804044757 Z13.9 Get yearly flu shotCan do Tdap if not doneCan do COVID 19 boosters, states 06/17/2024 that he does not 'do COVID vaccines' RTC in 3 months, do labs, ER if worse, he and his mother did verbalize his understand ing of the above Plantar fa sciitis of right foot 7239164658 7888835 M72.[address] Fletcher Schizophrenia [id number] F 20.9 On olanzapine 20mg dailyOn prazosinOn UzedySees Dr Allison Screening for cardiovascular system disease 966340207 Z13.6 Vitamin D deficiency 347 43579 E55.9 Excessive cerumen in ear canal 433037985 H61.23 Mild flaky cerumenAdv ised to use debrox [id number] Lizeth ortiz MD [facility] Primary Care [facility] 101 [facility] 140 [facility] [place] [address] 07/10/2024 14:47:16 07/10/2024 15:10:09 [id number] Lizeth ortiz MD [facility] 101 [facility] [address] [place] [address] 08/19/2024 16:32:16 08/19/2024 17:34:59 Screening - NAD 307270598 Z13.9 Get yearly flu shotCan do Tdap if not doneCan do COVID 19 boosters, states 06/17/2024 that he does not 'do COVID vaccines' RTC in 3 months, do labs, ER if worse, he and his mother did verbalize his understand ing of the above Plantar fa sciitis of right foot 5743140261 5730174 M72.[address] Fletcher Schizophrenia 62764049 F 20.9 On olanzapine 20mg dailyNot on prazosinOn UzedySees Dr Allison Vitamin D deficiency 347 54089 E55.9 Excessive cerumen in ear canal 972168292 H61.23 Mild flaky cerumenAdv ised to use debrox Hyperlipidemia 46482091 E78.5 Not on any medication s as he did not tolerate the statin, states that he 'slept' on the crestorGet labsMay need to be on zetia Health Concerns Section Related Observation LastModified by Organization Detai ls LastModified Time None Recorded Concern Status LastModified by Organization Details LastModified Time None Recorded Advance Directives Directive N: Payers Encounter Date Sequence Insurance Name Policy Number Policy Chaparro Covered Member ID Chaparro Member ID Guarantor Name 03/28/2024 1 [place] Silvano A Hiren [id number] Silvano Hiren 03/28/2024 2 [place] OR MEDICARE REPLACEMENT PRIMARY) Silvano Hiren [id number] Silvano Hiren 04/04/2024 1 [place] Silvano A Hiren [id number] Silvano Hiren 04/04/2024 2 [place] MEDIC[place]PLACEMENT PRIMARY) Silvano Hiren [id number] Silvano Hiren 06/17/2024 1 [place] Silvano A Hiren [id number] Silvano Hiren 06/17/2024 2 [place] OR [place]ICARE REPLACEMENT PRIMARY) Silvano Hiren [id number] Silvano Hiren 08/19/2024 1 [place] Silvano A Hiren [id number] Silvano Hiren 08/19/2024 2 [place] OR MEDICARE REPLACEMENT PRIMARY) Silvano Hiren [id number] Silvano Hiren Notes Date Note Type Note Provider Name and Address Organization Details Recorded Time text/html Pt RTC for cont c/o PFitis, Rt foot. Pain improved w/ previous tx. Anuel Fletcher, DPJaz [address], [address], [place], [address], [facility] [employer] [facility] [employer] [facility] 04/01/2024 10:00:00 5 text/html Pt is one wk s/p injection and tx for retro-calcaneal spur and pain. Anuel Fletcher DPM [address], [facility] [address], [place], [address], [facility] [employer] 04/05/2024 08:14:01 5 text/html OV : Here to establish care Present Hx:Plantar faciitisSchizophrenia Here to discuss above and get labs, he does see Dr Allison the psychiatrist Lizeth Briggs MD [address], [place] [address], [place], [address], [facility] [employer] [facility] 06/17/2024 16:23:46 5 text/html OV 06/17/2024: Here to establish care Present Hx:Plantar faciitisSchizophrenia Here to discuss above and get labs, he does see Dr Allison the psychiatrist OV 08/19/2024: Here for his f/u apt, he is doing well today, no new labsHere with his mother Lizeth Briggs MD [address], [place] [address], [place], [address], [facility] [employer] [facility] 08/19/2024 17:37:33
--- OUTSIDE RECORDS SUMMARY | 2024-08-20 14:31 | XMS_ITS | Continuity of Care Document ---
Author Organization [place] - [facility], [facility] Primary Care [place] Address [address] [place] [address] Care Team Providers Care Resource Teacher Name Role Phone RAMONA SAMUEL Psychiatrist Assessment Encounter Date Assessment Date Assessment LastModified by Organization Details LastModified Time 08/19/2024 08/19/2024 06/10/2024: Dr Lord Chol 210, TG 212 07/10/2024: FT4 WNL 07/17/2024: [email or web address] Not [facility] 08/19/2024 17:22:02 Plan of Treatment Reminders Order Date Submit Date Provider Last Modified By Organization Details Last Modified Time Details Appointments Follow Up 15 2024 03:00P M Lizeth mcbride MD Not available Not available Not available Lab vitamin D, 25-hydro xy, total, serum [address] (Lab), [address] [place], [address], 08/19/2024 17:22:34 lipid panel, serum [address] (Lab), [address] [place], [address], 08/19/2024 17:22:34 CBC w/ auto diff [address] (Lab), [address] [place], [address], 08/19/2024 17:22:34 CMP, serum or plasma [address] (Lab), [address] [place], [address], 08/19/2024 17:22:34 TSH, serum or plasma [address] (Lab), [address] [place], [address], 08/19/2024 17:22:34 Referral None recorded . Procedures None recorded . Surgeries None recorded . Imaging None recorded . Medication Orders None recorded . Patient TargetsNo targets recorded. Patient InstructionsNo instructions recorded. Reason for Referral None Reported. Problems Name Problem SNOMED Code Status Onset Date Resolution Date Notes Provider Name and Address Organization Details Recorded Time Plantar fasciitis of right foot 8980037205704 9101 Active 2024 CAM Go, [facility] [employer] [facility] 5 15:50:44 Pain in right foot 2603223393820 07 Active 2024 Anuel Fletcher DPM [address], [place], [address], [employer] [facility] 5 09:55:57 Plantar fasciitis 981876266 Active 2024 Anuel Fletcher DPM [address], [place], [address], [employer] [facility] 5 09:56:05 Schizophren ia 49653667 Active 2024 CAM Olson, [employer] [facility] 5 15:42:00 Asperger's disorder 20175139 Active 2024 CAM Olson, [place] - [place] [employer] [facility] 5 15:42:25 Vitamin D deficiency 31881756 Active 2024 Lizeth mcbride MD [address], [address], [place], [address], [facility] 16:00:47 Excessive cerumen in ear canal 917311564 Active 2024 Lizeth mcbride MD [address], [facility] [address], [place], [address], [facility] 16:22:36 Thyroid hormone tests outside reference range 542892345 Active 2024 Lizeth mcbride MD [address], [facility] [address], [place], [address], [facility] [employer] [facility] 14:59:31 Hyperglycem ia 56115861 Active 2024 CAM Olson, [facility] 12:21:04 Hyperlipide maribel 04193895 Active 2024 CAM Olson, [facility] 14:57:49 Problem Notes None recorded. Procedures Surgical History Date Name Laterality Status Provider Name and Address Organization Details Recorded Time 03/28/19 25 Corticosteroid Injection completed Anuel Fletcher DPM [address], [facility] [address], [place], [address], [facility] 04/01/2024 09:56:23 Appendectomy completed CAM Olson [facility] 06/17/2024 15:47:37 Imaging Results None recorded. Procedure [...] and Address Organization Details Last Updated DateTime 177.8 cm 31.1 kg/m2 94354.5 4 g 98.3 [degF] 96 /min 134 mm[Hg] 72 mm[Hg] CAM Olson [employer] 17:15:48 Social History Question Answer Notes LastModified by Organizat ion Details LastModified Time Tobacco Smoking Status Never Smoker Kathy Reginald warner [facility] 03/28/2024 15:33:07 Do You Have An Advance [...] Or The Highest Degree You Have Received? [id number] Information not available 06/17/2024 What Is The Fluoride Status Of Your Home? Unknown Information not available 06/17/2024 Are There Any Guns Present In Your Home? No Information not available 06/17/2024 [place] not available 06/17/2024 Do You Have A Medical Power Of Glass Melt Operator? No Information not available 06/17/2024 What [...] Functional Status Question Answer Note LastModified by [employer] ion Details LastModified Time Do you use any illicit or recreational drugs? No Information not available 06/17/2024 Do you or have you ever used any other forms of tobacco or nicotine? No Information not available 06/17/2024 What is your level of alcohol consumption? None Information not available 06/17/2024 Are you currently employed? No Information not available 06/17/2024 What is your exercise level? Heavy Information not available 06/17/2024 Mental Status Question Answer Note LastModified by Organization D etails LastModified Time Do you feel stressed (tense, restless, nervous, or anxious, or unable to sleep at night)? [id number] Information not available 06/17/2024 Family History Relationship Description Onset Age of this Age Resolved Age Notes LastModified by Organization Details LastModified Time Father Heart disease Not available 03/13 15:32:58 Father Diabetes mellitus [...] Recorded Time Hib, unspecified formulation 02/22/1988 completed CAM Olson [facility] [employer] [facility] 06/17/2024 15:41:31 MMR 11/27/1987 CAM Haji [facility] 06/17/2024 15:41:31 MMR 12/14/1991 kermit Rios Paron, RMA null, [place] [facility] 06/17/2024 15:41:31 COVID-19, mRNA, LNP-S, PF, 30 mcg/0.3 mL dose 06/13/2020 completed Blanca Christian, RMA null, [place] - [facility] 06/17/2024 15:41:31 COVID-19, mRNA, LNP-S, PF, 30 mcg/0.3 mL dose 07/08/2020 completed Blanca Christian, RMA null, [facility] 06/17/2024 15:41:31 Tdap 08/04/2009 completed Blanca Paron, RMA null, [facility] 06/17/2024 15:41:31 Hep B, unspecified formulation 10/25/1994 completed Blanca Christian, RMA null, [facility] 06/17/2024 15:41:31 OPV 09/15/1988 completed Blanca Christian, RMA null, [facility] 06/17/2024 15:41:31 OPV 1985 completed Blanca Paron, RMA null, [facility] 06/17/2024 15:41:31 OPV 1985 completed Blanca Paron, RMA null, [facility] 06/17/2024 15:41:31 OPV 02/24/1987 completed Blanca Christian, RMA null, [facility] 06/17/2024 15:41:31 DTaP, unspecified formulation 09/15/1988 completed Blanca Christian, RMA null, [facility] 06/17/2024 15:41:31 DTaP, unspecified formulation 1986 completed Blanca Christian, RMA null, [facility] 06/17/2024 15:41:31 DTaP, unspecified formulation 11/04/1991 completed Blanca Paron, RMA null, [facility] 06/17/2024 15:41:31 DTaP, unspecified formulation 1986 completed CAM Olson, [place] [facility] 06/17/2024 15:41:31 DTaP, unspecified formulation 02/24/1987 completed CAM Olson, [facility] [facility] [employer] [facility] 06/17/2024 15:41:31 Past Encounters Encounter ID Performer Location Encounter Start Date Encounter Closed Date Diagnosis/Indication Diagnosis SNOMED-CT Code Diagnosis ICD10 Code Diagnosis Note [id number] Lizeth ortiz MD S_G Primary Care [facility] [address] [place] [address] 08/19/2024 16:32:16 08/19/2024 17:34:59 Screening - NAD 986596308 Z13.9 Get yearly flu shotCan do Tdap if not doneCan do COVID 19 boosters, states 06/17/2024 that he does not 'do COVID vaccines' RTC in 3 months, do labs, ER if worse, he and his mother did verbalize his understand ing of the above Plantar fa sciitis of right foot 9377541329 5716321 M72.[address] Fletcher Schizophrenia 26253536 F 20.9 On olanzapine 20mg dailyNot on prazosinOn UzedySees Dr Allison Vitamin D deficiency 347 43372 E55.9 Excessive cerumen in ear canal 196682435 H61.23 Mild flaky cerumenAdv ised to use debrox Hyperlipidemia 85599149 E78.5 Not on any medication s as he did not tolerate the statin, states that he 'slept' on the crestorGet labsMay need to be on zetia Health Concerns Section Related Observation LastModified by Organization Detai ls LastModified Time None Recorded Concern Status LastModified by Organization Details LastModified Time None Recorded Payers Encounter Date Sequence Insurance Name Policy Number Policy Chaparro Covered Member ID Chaparro Member ID Guarantor Name 08/19/2024 1 [place] Silvano Glory Maradiaga [id number] Silvano Maradiaga 08/19/2024 2 [place] WHEN MEDICARE OR MEDICARE REPLACEMENT PRIMARY) Silvano Maradiaga [id number] Silvano Maradiaga Notes Date Note Type Note Provider Name and Address Organization Details Recorded Time 06/09/202 5 text/html OV 06/17/2024: Here to establish care Present Hx:Plantar faciitisSchizophrenia Here to discuss above and get labs, he does see Dr Allison the psychiatrist OV 08/19/2024: Here for his f/u apt, he is doing well today, no new labsHere with his mother Lizeth Briggs MD [address] [facility] [address], [facility] [address], [place], [address], [place] [facility] 08/19/2024 17:37:33
--- OUTSIDE RECORDS SUMMARY | 2024-08-20 14:31 | XMS_ITS ---
Author Organization [facility] [employer] [facility] Address [address] [place] [address] [address] Care Team Providers Care Water Safety Teacher Name Role Phone Kamari Lord MD Primary Care Provider Julio Fine Unavailable [phone] Nicolas Raygoza Unavailable [phone] REASON FOR VISIT Injection Only Visit Social History Sex Assigned At : Social History Observation Description Sex Assigned At Male Encounters Encounter Location Date Provider Diagnosis [address] [address] 08/12/2024 Nicolas Raygoza Plan Of Treatment Next Appt Details Provider Name:Julio ortiz, 09/05/2024 01:15:00 PM, [address] [place] [address], [address], [address], Provider Name:Nicolas Raygoza , 09/12/2024 04:30:00 PM, [address] [place] [address], [address], Progress Notes * MERLINEMONOHANDOB:1985 (38 yo M)Acc No.[id number]:08/12/2024 Progress Note Patient: SANIYA ORNELAS Provider: Lucille RAYGOZA MD :1985 A ge:38 Y S ex:Male Date:08/12/2024 Address:[address] [facility] [id number] Pcp:Kamari Lord MD Subjective: * Chief Complaints: [...] Electronic signature of Silvino Raygoza MD on 08/20/2024 at 02:31 PM CDT Sign off status: Pending * Provider: Lucille RAYGOZA MD Date: 08/12/2024 Generated for Derek segura/Edouard/Aki on: 08/20/2024 02:31 PM CDT
--- OUTSIDE RECORDS SUMMARY | 2024-08-20 14:31 | XMS_ITS | Clinical Summary ---
Author Organization [facility] Address [address] [place] [address] Care Team Providers Care Collar Packer Name Role Phone Unavailable Primary Care Provider Unavailabl e Source Comments [facility],non-owned Affiliates and Associated Physician Practices is amultiple site organization consisting of ambulatory clinics and hospital sitesin [place], [place], [place] and [place]. This disclosure is being madepursuant to the Care Everywhere program and may not contain all information available regarding this patient. 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 Gender Identity Not on file Sexual Orientation [...] 8:55 PM CDT Height 175.3 cm (5' 9) 06/05/2018 8:55 PM CDT Body Mass Index [...] age to complete this topic [place] [address] MEDICAID - OUT OF STATE [place] [address] [place] [address] MEDICAID - PENDING [place] Advance Directives * Full Code (Latest Code Status on File) Date Activated Date Inactivated Comments 11/21/2017 7:58 PM 11/24/2017 4:32 PM * Full Code Date Activated Date Inactivated Comments 07/11/2017 10:27 AM 08/01/2017 3:33 PM
--- OUTSIDE RECORDS SUMMARY | 2024-08-20 14:31 | XMS_ITS | Clinical Summary ---
Author Organization [facility] Address [address] [place] [address] Phone Care Team Providers Care Child Care Aide Name Role Phone Unavailable Primary Care Provider [...] 3:02 PM CDT Height 175.3 cm (5' 9) 08/11/2017 3:02 PM CDT Body Mass Index 26.58 08/11/2017 3:02 PM CDT Plan of Treatment Not on file
--- OUTSIDE RECORDS SUMMARY | 2024-08-20 14:31 | XMS_ITS | Patient Health Record ---
Author Organization [facility] [employer] [facility] Address [address] [place] [address] Care Team Providers Care Circuit Walker Name Role Phone Kamari Lord MD Primary Care Provider Julio Fine Unavailable [phone] Nicolas Allison Unavailable [phone] Allergies No Known Allergies Reason For Referral No Information Medications Medication SIG (Take, Route, Frequency, Duration) Notes Start Date End Date Status OLANZapine 20 MG Oral for 90 Days Not-Taking Prazosin HCl 1 MG 1 capsule at bedtime Oral Once a day for 90 days Active OLANZapine 20 MG 1 tablet Oral Once a day for 90 days Active Zolpidem Tartrate 5 MG Oral for 30 Days Not-Taking Venlafaxine HCl ER 37.5 MG 1 capsule Oral Once a day for 90 days Active Uzedy 125 MG/0.35ML 0.35 mL Subcutaneous every 28 days for 28 days Active Immunizations Vaccine Route Administration Date [...] W/U Status Risk Notes Problem Paranoid schizophrenia (32822597) Paranoid schizophrenia (F20.0) Active confirmed Problem Generalized anxiety disorder (25072269) Generalized anxiety disorder (F41.1) Active confirmed Problem Insomnia (740578270) Other insomnia (G47.09) Active confirmed Problem Obsessive compulsive disorder (873818333) Other obsessive-compuls arron disorder (F42.8) Active confirmed Vital Signs Heart Rate 81 /min 07/15/2024 Height-cm 175.26 cm 07/15/2024 Blood pressure diastolic 50 mm Hg 07/15/2024 Weight-kg 97.52 kg 07/15/2024 Height 69.00 in 07/15/2024 Blood pressure systolic 116 mm Hg 07/15/2024 Weight 215 lbs 07/15/2024 BMI 31.75 kg/m2 07/15/2024 Encounters Encounter Location Date Provider Diagnosis [facility] [address] [place] [address] 11/03/2023 Julio Lee [facility] [address] [place] [address] 08/31/2023 Julio Lee [facility] [address] [place] [address] 09/04/2023 Julio Lee Paranoid schizophren ia F20.0 [facility] [address] [place] [address] 10/02/2023 Nicolas Seguraam [facility] [address] [place] [address] 10/30/2023 Nicolas Allison Paranoid schizophren ia F20.0 [facility] [address] [place] [address] 11/24/2023 Julio Lee Paranoid schizophren ia F20.0 ; Generalized anxiety disorder F41.1 ; Other obsessive-compulsive disorder F42.8 and Other insomnia G47.09 [facility], [facility] [address] [place] [address] 11/29/2023 Nicolas Keegan Paranoid schizophren ia F20.0 [facility], [facility] [address] [place] [address] 12/22/2023 Nicolas Keegan [facility], [facility] [address] [place] [address] 12/28/2023 Nicolas Keegan Paranoid schizophren ia F20.0 [facility], [facility] [address] [place] [address] 01/24/2024 Julio Lee Paranoid schizophren ia F20.0 ; Generalized anxiety disorder F41.1 ; Other obsessive-compulsive disorder F42.8 and Other insomnia G47.09 [facility], [facility] [address] [place] [address] 01/26/2024 Julio Lee Paranoid schizophren ia F20.0 [facility], [facility] [address] [place] [address] 02/23/2024 Julio Lee Paranoid schizophren ia F20.0 [facility], [facility] [address] [place] [address] 03/22/2024 Julio Lee Paranoid schizophren ia F20.0 [facility], [facility] [address] [place] [address] 04/19/2024 Julio Lee Paranoid schizophren ia F20.0 [facility], [facility] [address] [place] [address] 04/23/2024 Julio Lee Paranoid schizophren ia F20.0 ; Generalized anxiety disorder F41.1 ; Other obsessive-compulsive disorder F42.8 and Other insomnia G47.09 [facility], [facility] [address] [place] [address] 05/17/2024 Julio Lee Paranoid schizophren ia F20.0 [facility], [facility] [address] [place] [address] 06/10/2024 Nicolas Keegan Encounter for screen ing for cardiovascular disorders Z13.6 ; Vitamin D deficiency E55.9 ; Hypothyroidism, unspecified type E03.9 ; Vitamin deficiency E56.9 ; Dyslipidemia E78.5 ; Encounter for screening for depression Z13.31 ; Paranoid schizophrenia F20.0 ; Generalized anxiety disorder F41.1 ; Other obsessive-compulsive disorder F42.8 and Other insomnia G47.[address] [address] 06/14/2024 Nicolas Allison On halfway drug therapy V58.[address] [address] 07/04/2024 Julio Lee Encounter for screen ing for depression Z13.31 ; Encounter for screening for cardiovascular disorders Z13.6 ; Paranoid schizophrenia F20.0 ; Generalized anxiety disorder F41.1 ; Other obsessive-compulsive disorder F42.8 and Other insomnia G47.[address] [address] 07/15/2024 Nicolas Keegan Paranoid schizophren ia F20.0 [place] [address] [address] 08/16/2024 Nicolas Keegan Paranoid schizophren ia F20.[address] [address] 11/03/2023 Julio Lee [place] [address] [address] [facility] [address] [address] 06/12/2024 Julio Lee Assessments Encounter Date Diagnosis (ICD Code) Assessment Notes Treatment Notes Treatment Clinical Notes Section Notes 09/04/2023 Paranoid schizophrenia (ICD-10 - F20.0) 10/30/2023 Paranoid schizophrenia (ICD-10 - F20.0) 11/24/2023 Paranoid [...] to assess patient's progress and medication effectiveness. 11/29/2023 Paranoid schizophrenia (ICD-10 - F20.0) 12/28/2023 Paranoid [...] 06/10/2024 Dyslipidemia (ICD-10 - E78.5) 06/14/2024 On retirement specialist drug therapy (ICD9-CM - V58.69) Verified the injection dose and diagnosis 07/04/2024 Encounter for screening for depression (ICD-10 - Z13.31) 07/15/2024 Paranoid schizophrenia (ICD-10 - F20.0) Verified the injection dose and diagnosis 08/16/2024 Paranoid schizophrenia (ICD-10 - F20.0) Verified the injection dose and diagnosis 06/10/2024 Encounter for screening for depression (ICD-10 - Z13.31) 07/04/2024 Encounter for screening for cardiovascular disorders (ICD-10 - Z13.6) 11/24/2023 Other obsessive-compul sive disorder (ICD-10 - [...] for olanzapine, venlafaxine, and prazosin as needed 06/10/2024 Paranoid schizophrenia (ICD-10 - F20.0) olanzapine 20mg daily Last [facility] Injection given 04/19/24 04/23/2024 Other obsessive-compul sive disorder (ICD-10 - F42.8) 07/04/2024 Paranoid schizophrenia (ICD-10 - F20.0) olanzapine 20mg daily Last [employer]zedy Injection given 06/14/24 11/24/2023 Other insomnia (ICD-10 - G47.09) stable, [...] assess patient's progress and medication effectiveness. 07/04/2024 Generalized anxiety disorder (ICD-10 - F41.1) [...] Recommend lab work to be done at [place] Substance Use Assessment: Patient denies current use [...] ensure accuracy, there may be errors, including hybrid corn breeder inaccuracies and misspellings of medication names. This document should not be considered a verbatim record, and any discrepancies should be verified with the provider. 07/04/2024 Other Silvano Rick, male patient with a history of [...] WITH TSH (7444) 06/10/2024 COMPREHENSIVE METABOLIC PANEL (01504) CBC (INCLUDES DIFF/PLT) (6399) HEMOGLOBIN A1c (496) 06/10/2024 VITAMIN B12/FOLATE, SERUM PANEL (7065) 0 06/10/2024 VITAMIN D,25-OH,TOTAL,IA (62804) 025 Next Appt Details Provider Name:Julio ortiz, 09/05/2024 01:15:00 PM, [address], [facility] [address], [place], [address], Provider Name:Nicolas Allison , 09/12/2024 04:30:00 PM, [address], [place], [address], Insurance Providers Payer Name Payer Address Payer Phone Subscriber Number Group Number Insured Name Patient Relationship to Insured Coverage Start Date Coverage End Date Medicare-I l Medicare [address] [place] [phone] [id number] SILVANO RICK Self - patient is the insured Medicaid-[place] Medicaid [address] [address] [place] [address] [id number] SILVANO RICK Self - patient is the insured Medications Administered Medication Instructions Date of Administration Dosage Notes Uzedy 09/04/2023 125 mg Uzedy 10/02/2023 125 mg Uzedy 10/30/2023 125 mg Uzedy 11/29/2023 125 mg Uzedy 12/28/2023 125 mg Uzedy 01/26/2024 125 mg Uzedy 02/23/2024 125 mg Uzedy 03/22/2024 125 mg watched gerald Ramos munguia Uzedy 04/19/2024 125 mg Uzedy 05/17/2024 125 mg Uzedy 06/14/2024 125 mg Uzedy 08/16/2024 125 mg Medical (General) History Medical History History ICD Code Problems: Asperger's disorder Chronic paranoid schizophrenia Generalized anxiety disorder History of high risk medication Long-term current use of antipsychotic m edication Obsessive-compulsive disorder Paranoid schizophrenia Persistent insomnia Schizophrenia ,
[2024-08-20 14:40] LABS: LDL Cholesterol Direct 132 mg/dL
[2024-08-20 14:45] LABS: Vitamin D 25 Hydroxy 22.2 ng/mL
[2024-08-20 14:56] LABS: Basophils Percent Auto 0.8 % (0.2-1.2); Eosinophils Percent Auto 0.2 % (0-4.4); Hematocrit 47.6 % (42.0-52.0); Hemoglobin 15.6 g/dL (14.0-18.0); Immature Granulocyte Absolute 0.03 K/mm3 (0.00-0.031); Immature Granulocyte Percent A 0.6 % (0-0.5); Lymphocytes Percent Auto 40.8 % (18.3-44.2); Mean Corpuscular HGB Conc 32.8 g/dl (32-36); Mean Corpuscular Hemoglobin 28.4 pg (26-34); Mean Corpuscular Volume 86.7 fl (80-100); Mean Platelet Volume 9.9 fl (7.4-10.4); Monocytes Absolute Auto 0.3 K/mm3 (0.1-0.6); Monocytes Percent Auto 6.2 % (2.6-8.5); Neutrophils Absolute Auto 2.7 K/mm3 (1.3-6.7); Neutrophils Percent Auto 51.4 % (45.5-73.1); Platelet Count Result 275 k/mm3 (150-375); Red Blood Count 5.49 M/mm3 (4.6-6.20); Red Cell Distribution Width 12.5 % (11.5-14.5); White Blood Count 5.2 K/mm3 (4.5-10.0)
== END 2024-08-20 13:23 | disposition home or self-care (01) ==
LOC: ANHLAB 13:26
PROVIDERS: PCP Internal Medicine; Visit Provider Internal Medicine
DX: E55.9 Vitamin D deficiency, unspecified (principal); E78.5 Hyperlipidemia, unspecified
CPT/HCPCS: 36415; 80053; 80061; 82306; 84443; 85025

== ENCOUNTER 2024-11-13 16:29 | Emergency (ER) | payer MEDICARE, MEDICAID, SELFPAY ==
--- NOTE | ~2024-11-13 | XR_ITS ---
EXAMINATION: XR chest 1V 11/13/2024 17:51 INDICATION: Found asleep on sidewalk PROCEDURE: AP view of the chest COMPARISON: 01/14/2021 FINDINGS: The lungs are clear. Mild cardiomegaly. Elevated right diaphragm. There are no pleural effusions. There is no pneumothorax suspected. IMPRESSION: 1: NO ACUTE CARDIOPULMONARY DISEASE. Reviewed, dictated and finalized at location O.
--- NOTE | ~2024-11-13 | CT_ITS ---
EXAMINATION: CT BRAIN W/O DATE: 11/13/2024 17:49 INDICATION: Headache TECHNIQUE: Computed tomography (CT) of the head was performed without intravenous contrast. The dose-length product was 681.00 mGy-cm. Automated exposure control and iterative reconstruction technique were employed. COMPARISON: No prior studies for comparison. FINDINGS: Normal brain parenchymal volume for age. Normal fried-white differentiation. No acute intracranial hemorrhage, infarction, mass or mass effect. No ventriculomegaly or midline shift. Midline sagittal images demonstrate a normal corpus callosum, craniovertebral junction and sella turcica. Basilar cisterns are patent. Mucosal thickening in in the left maxillary sinus. Mastoids are pneumatized. IMPRESSION: 1. No acute intracranial abnormality. Reviewed, dictated and finalized at location O.
[2024-11-13 16:30] VITALS: BP 118/70; PULSE 108; RESP 18; TEMP 36.2; O2SAT 98
--- NOTE | 2024-11-13 16:35 | PC.NURSE ---
Per mom, Daniela, who is out of town, patient was supposed to schedule an apt with his psychiatrist (Jagdish Lee) but has been unable to get in. Mom reports patient was wandering around last night. Per mom, she thought he had enough olanzapine to last while she is out of town, but patient is out of his meds. Per mom, patient has 2 caregivers and she will get in contact with them. Mom requesting updates on patient's stay.
[2024-11-13 17:08] VITALS: BP 106/69; PULSE 91; RESP 20; O2SAT 92
--- OUTSIDE RECORDS SUMMARY | 2024-11-13 17:13 | XMS_ITS | Clinical Summary ---
Author Organization [facility] Address [address] [place] [address] Care Team Providers Care Community Health Agent Name Role Phone Unavailable Primary Care Provider Unavailabl e Source Comments [facility],non-owned Affiliates and Associated Physician Practices is amultiple site organization consisting of ambulatory clinics and hospital sitesin [place], [place], [place] and [place]. This disclosure is being madepursuant to the Care Everywhere program and may not contain all information available regarding this patient. 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 Gender Identity Not on file Sexual Orientation [...] of 3 - 19+ 3-dose series) 2005 HPV VACCINE (1 - 3-dose SCDM series) 2013 DEPRESSION SCREENING 03/13/2024 COVID-19 VACCINE (1 - 2023-2 5 season) 2024 INFLUENZA VACCINE (#1) 2024 ZOSTER VACCINE (1 of 2) 2036 [...] - OUT OF STATE MEDICAID [place] [facility] MEDICAID - [place]END[place] Advance Directives * Full Code (Latest Code Status on File) Date Activated Date Inactivated Comments 11/21/2017 7:58 PM 11/24/2017 4:32 PM * Full Code Date Activated Date Inactivated Comments 07/11/2017 10:27 AM 08/01/2017 3:33 PM
--- OUTSIDE RECORDS SUMMARY | 2024-11-13 17:13 | XMS_ITS | Patient Health Record ---
Author Organization [facility] [employer] [facility] Address [address] [place] [address] Care Team Providers Care Air Brake Adjuster Name Role Phone Kamari Lord MD Primary Care Provider Julio Fine Unavailable [phone] Nicolas Allison Unavailable [phone] Allergies No Known Allergies Reason For Referral No Information Medications Medication SIG (Take, Route, Frequency, Duration) Notes Start Date End Date Status OLANZapine 20 MG Tablet Oral; Duration: 90 Days Not-Taking Cobenfy 100-20 MG Capsule 1 capsule one hour before or two hours after a meal Orally Twice a day; Duration: 30 days 08/21/2024 Active Cobenfy 50-20 MG Capsule 1 capsule one h our before or two hours after a meal Orally Twice a day; Duration: 7 days 08/21/2024 Active Venlafaxine HCl ER 37.5 MG Capsule Extended Release 24 Hour 1 capsule Oral Once a day; Duration: 90 days Active Zolpidem Tartrate 5 MG Tablet Oral; Duration: 30 Days Not- Taking Uzedy 125 MG/0.35ML Suspension Prefilled Syringe 0.35 mL Subcutaneous every 28 days; Duration: 28 days Active OLANZapine 10 MG Tablet 1 tablet Oral SEE SIGN; Duration: 30 days TAKE 15MG DAILY X 7 DAYS THEN 10MG DAILY X 7 DAYS THEN 5MG DAILY X 7 DAYS THEN STOP Active Rosuvastatin Calcium 40 MG Tablet TAKE 1 TABLET BY MOUTH EVERY DAY Oral; Duration: 90 Days Active Prazosin HCl 1 MG Capsule 1 capsule at bedtime Oral Once a day; Duration: 90 days Active Immunizations Vaccine Route Administration [...] History Observation Description Sex Assigned At Male Social History Tobacco Use: Social Info Question Answer Notes Tobacco Control (Standard) Tobacco use: Nonsmoker Additional Details Category Social Info Options Details Migrated Social History Migrated Social History Alcohol Intake: None 03/15/2018,Tobacco Years: Never smoker 12/11/2017,Smoking Status: 0 12/19/2022 Problems Problem Type SNOMED Code ICD Code Onset Dates Problem Status W/U Status Risk Notes Problem Paranoid schizophrenia (96854370) Paranoid schizophrenia (F20.0) Active confirmed Problem Generalized anxiety disorder (57738339) Generalized anxiety disorder (F41.1) Active confirmed Problem Insomnia (046160920) Other insomnia (G47.09) Active confirmed Problem Obsessive compulsive disorder (874285358) Other obsessive-compuls arron disorder (F42.8) Active confirmed Vital Signs Heart Rate 109 /min 11/08/2024 Height-cm 175.26 cm 11/08/2024 Blood pressure diastolic 86 mm Hg 11/08/2024 Weight-kg 96.71 kg 11/08/2024 Height 69.00 in 11/08/2024 Blood pressure systolic 124 mm Hg 11/08/2024 Weight 213.2 lbs 11/08/2024 BMI 31.48 kg/m2 11/08/2024 Encounters Encounter Location Date Provider Diagnosis [facility] [employer] [facility] [address] [address] 11/24/2023 Julio Lee Paranoid schizophren ia F20.0 ; Generalized anxiety disorder F41.1 ; Other obsessive-compulsive disorder F42.8 and Other insomnia G47.09 [facility], [facility] [address] [place] [address] 11/29/2023 Nicolas Keegan Paranoid schizophren ia F20.0 [facility], [facility] [address] [place] [address] 12/22/2023 Nicolas Keegan [facility], [facility] [address] [place] [address] 12/28/2023 Nicolas Keegan Paranoid schizophren ia F20.0 [facility], [facility] [address] [place] [address] 01/24/2024 Julio Lee Paranoid schizophren ia F20.0 ; Generalized anxiety disorder F41.1 ; Other obsessive-compulsive disorder F42.8 and Other insomnia G47.09 [facility], [facility] [address] [place] [address] 01/26/2024 Julio Lee Paranoid schizophren ia F20.0 [facility], [facility] [address] [place] [address] 02/23/2024 Julio Lee Paranoid schizophren ia F20.0 [facility], [facility] [address] [place] [address] 03/22/2024 Julio Lee Paranoid schizophren ia F20.0 [facility], [facility] [address] [place] [address] 04/19/2024 Julio Lee Paranoid schizophren ia F20.0 [facility], [facility] [address] [place] [address] 04/23/2024 Julio Lee Paranoid schizophren ia F20.0 ; Generalized anxiety disorder F41.1 ; Other obsessive-compulsive disorder F42.8 and Other insomnia G47.09 [facility], [facility] [address] [place] [address] 05/17/2024 Julio Lee Paranoid schizophren ia F20.0 [facility], [facility] [address] [place] [address] 06/10/2024 Nicolas Keegan Encounter for screen ing for cardiovascular disorders Z13.6 ; Vitamin D deficiency E55.9 ; Hypothyroidism, unspecified type E03.9 ; Vitamin deficiency E56.9 ; Dyslipidemia E78.5 ; Encounter for screening for depression Z13.31 ; Paranoid schizophrenia F20.0 ; Generalized anxiety disorder F41.1 ; Other obsessive-compulsive disorder F42.8 and Other insomnia G47.09 [facility], [facility] [address] [place] [address] 06/14/2024 Nicolas 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 [facility], [facility] [address] [place] [address] 07/04/2024 Julio Lee Encounter for screen ing for depression Z13.31 ; Encounter for screening for cardiovascular disorders Z13.6 ; Paranoid schizophrenia F20.0 ; Generalized anxiety disorder F41.1 ; Other obsessive-compulsive disorder F42.8 and Other insomnia G47.09 [place] [address] [place] [address] 07/15/2024 Nicolas Keegan Paranoid schizophren ia F20.0 [facility] [address] [place] [address] 08/16/2024 Nicolas Keegan Paranoid schizophren ia F20.0 [facility] [address] [place] [address] 08/21/2024 Julio Lee Encounter for screen ing for depression Z13.31 ; Encounter for screening for cardiovascular disorders Z13.6 ; Paranoid schizophrenia F20.0 ; Generalized anxiety disorder F41.1 ; Other obsessive-compulsive disorder F42.8 and Other insomnia G47.09 [facility] [address] [place] [address] 09/16/2024 Julio Lee Paranoid schizophren ia F20.0 and Encounter for screening for cardiovascular disorders Z13.6 [facility], [facility] [address] [place] [address] 10/11/2024 Nicolas Keegan Paranoid schizophren ia F20.0 [facility], [facility] [address] [place] [address] 11/08/2024 Nicolas Allison Paranoid schizophren ia F20.0 [facility] [address] [facility] [address] [place] [address] 06/12/2024 Julio Lee Assessments Encounter Date Diagnosis (ICD Code) Assessment Notes Treatment Notes Treatment Clinical Notes Section Notes 11/24/2023 Paranoid schizophrenia (ICD-10 - F20.0) olanzapine [...] 06/10/2024 Dyslipidemia (ICD-10 - E78.5) 06/14/2024 [address] attendant drug therapy (ICD9-CM - V58.69) Verified the injection dose and diagnosis 07/04/2024 Encounter for screening for depression (ICD-10 - Z13.31) 07/15/2024 Paranoid schizophrenia (ICD-10 - F20.0) Verified the injection dose and diagnosis 08/16/2024 Paranoid schizophrenia (ICD-10 - F20.0) Verified the injection dose and diagnosis 08/21/2024 Encounter for screening for depression (ICD-10 - Z13.31) 09/16/2024 Paranoid schizophrenia (ICD-10 - F20.0) Verified the injection dose and diagnosis 10/11/2024 Paranoid schizophrenia (ICD-10 - F20.0) Verified the injection dose and diagnosis 11/08/2024 Paranoid schizophrenia (ICD-10 - F20.0) Verified the injection dose and diagnosis 09/16/2024 Encounter for screening for cardiovascular disorders (ICD-10 - Z13.6) Verified the injection dose and diagnosis 08/21/2024 Encounter for screening for cardiovascular disorders (ICD-10 [...] Other obsessive-compul sive disorder (ICD-10 - F42.8) 08/21/2024 Paranoid schizophrenia (ICD-10 - F20.0) Last Uzedy Injection given 08/16/24 07/04/2024 Paranoid schizophrenia (ICD-10 - F20.0) olanzapine [...] 07/04/2024 Generalized anxiety disorder (ICD-10 - F41.1) 08/21/2024 Generalized anxiety disorder (ICD-10 - F41.1) 06/10/2024 [...] Other obsessive-compul sive disorder (ICD-10 - F42.8) 08/21/2024 Other obsessive-compul sive disorder (ICD-10 - F42.8) 08/21/2024 Other insomnia (ICD-10 - G47.09) worse week prior to injection 07/04/2024 Other insomnia (ICD-10 - G47.09) worse [...] Recommend lab work to be done at [place] Substance Use Assessment: Patient denies current use [...] ensure accuracy, there may be errors, including practice advisor inaccuracies and misspellings of medication names. This document should not be considered a verbatim record, and any discrepancies should be verified with the provider. 07/04/2024 Other Saniya Rick, male patient with a history of [...] efforts have been made to correct them. 08/21/2024 Los Rick, a patient with schizophrenia, presents for medication management and discussion of recent blood work results, particularly concerning elevated cholesterol levels and weight gain. Schizophrenia Assessment: Patient is currently on olanzapine and monthly Risperdal injections for management of schizophrenia. The patient is reported to be doing so good on the current regimen. However, there are concerns about metabolic side effects, particularly elevated cholesterol and weight gain, which are common with atypical antipsychotics. Plan: - Initiate Cobenfy 50 mg/20 mg, 1 capsule twice daily, taken 1 hour before or 2 hours after eating - Taper olanzapine: - 15 mg for 1 week - 10 mg for 1 week - 5 mg for 1 week - Continue monthly Risperdal injection - Follow-up appointment in 1 month to assess transition from olanzapine to Cobenfy Hypercholestero lemia Assessment: Patient has elevated cholesterol levels as evidenced by recent blood work. A trial of Crestor (rosuvastatin) was initiated but discontinued due to excessive sedation. The elevated cholesterol is likely multifactorial, potentially exacerbated by the current antipsychotic regimen and weight status. Plan: - Discontinue Crestor due to side effects - Continue ezetimibe injections (last dose on August 16) - Recommend regular walking for exercise to help manage cholesterol levels - Monitor cholesterol levels with future blood work Obesity Assessment: Patient has concerns about weight gain, which is a known side effect of atypical antipsychotics. The weight gain is significant enough that the primary care physician has suggested considering Ozempic (semaglutide) for weight management. Plan: - Encourage regular walking for exercise - Consider Ozempic for weight management in the future if needed the note is transcribed using speech recognition software. It is a reflection of a visit with the patient. It might have some inaccuracy, including medication names and transcribing errors, though efforts have been made to correct them. Plan Of Treatment Pending Test Test Name Order Date LIPID PANEL, STANDARD (7600) 06/10/2024 THYROID PANEL WITH TSH (7444) 06/10/2024 COMPREHENSIVE METABOLIC PANEL (02575) CBC (INCLUDES DIFF/PLT) (6399) HEMOGLOBIN A1c (496) 06/10/2024 VITAMIN B12/FOLATE, SERUM PANEL (7065) 0 06/10/2024 VITAMIN D,25-OH,TOTAL,IA (84446) 025 Insurance Providers Payer Name Payer Address Payer Phone Subscriber Number Group Number Insured Name Patient Relationship to Insured Coverage Start Date Coverage End Date Medicare-I l Medicare [address] [place] [address] [id number] SANIYA RICK Self - patient is the insured Medicaid-[place] l Medicaid [address] [address] [place] [address] [id number] SANIYA RICK Self - patient is the insured Medications Administered Medication Instructions Date of Administration Dosage Notes Uzedy 09/04/2023 125 mg Uzedy 10/02/2023 125 mg Uzedy 10/30/2023 125 mg Uzedy 11/29/2023 125 mg Uzedy 12/28/2023 125 mg Uzedy 01/26/2024 125 mg Uzedy 02/23/2024 125 mg Uzedy 03/22/2024 125 mg watched gerald munguia Uzedy 04/19/2024 125 mg Uzedy 05/17/2024 125 mg Uzedy 06/14/2024 125 mg Uzedy 08/16/2024 125 mg Uzedy 09/16/2024 125 mg Uzedy 10/11/2024 125 mg Uzedy 11/08/2024 125 mg Medical (General) History Medical History History ICD Code Problems: Asperger's disorder Chronic paranoid schizophrenia Generalized anxiety disorder History of high risk medication Long-term current use of antipsychotic m edication Obsessive-compulsive disorder Paranoid schizophrenia Persistent insomnia Schizophrenia , Imported from [place]: On 08/19/2024 patient had an office visit with Dr. Lizeth Briggs. The patient was evaluated for excessive cerumen in the ear canal, hyperlipidemia, plantar fasciitis of the right foot, schizophrenia, and vitamin D deficiency. Screening results were noted as NAD (no abnormality detected).
--- OUTSIDE RECORDS SUMMARY | 2024-11-13 17:13 | XMS_ITS | Clinical Summary ---
Author Organization [facility] Address [address] [place] [address] Phone Care Team Providers Care Cake Tester Name Role Phone Unavailable Primary Care Provider [...]
--- NOTE | 2024-11-13 17:29 | ECG_ITS ---
Test Date: 2024-11-13 19:11:00 Measurements Intervals [place] Rate: 75 P: 50 TX: 161 QRS: 52 QRSD: 100 T: 39 QT: 370 QTc: 416 Interpretive Statements SINUS RHYTHM No previous ECG available for comparison Electronically Signed On 11-14-2024 11:30:49 CDT by Dakota Adams M.D.
--- NOTE | 2024-11-13 17:31 | ED.HA ---
HPI - Headache General Chief Complaint: Headache Stated Complaint: ramírez Time Seen by Provider: 11/13/24 17:02 History of Present Illness HPI Narrative: 39-year-old male with reported history of schizophrenia and bipolar disorder presents to the emergency department via EMS after being found asleep on the sidewalk prior to arrival. Patient states he went to [facility] and was walking back to his house when he became tired, laid down on the sidewalk and fell asleep. He states he was awoken by EMS and brought to the emergency department for the evaluation. He states he has not been sleeping well the past few nights because he has been having ?nightmares?. He lives at home by himself. He notes he is supposed to be taking olanzapine but ran out of his prescription 1 month ago. Per chart review the patient has not filled his Olanzapine since June of 2024. He states he is not supposed to be taking other medications however it appears he has been rx Cobenfy in August. He does have a psychiatrist. He denies SI or HI. He denies EtOH or drug use. His only complaint is feeling tired and having a headache. He notes he has also been having headaches over the past month but headaches are not uncommon for him. He denies head injury or trauma, vision changes, focal numbness or weakness, chest pain or shortness of breath, abdominal pain, N/V/D. Denies alcohol or drug use. Related Data Home Medications ?Medication ?Instructions ?Recorded ?Confirmed ?Last Taken ?Type paliperidone palmitate 234 mg/1.5 234 mg IM DAILY 07/18/19 03/19/21 03/18/21 History mL intramuscular syringe (Invega Sustenna) olanzapine 20 mg tablet 20 mg PO DAILY 03/01/21 03/19/21 03/18/21 History Allergies Allergy/AdvReac Type Severity Reaction Status Date / Time No Known Allergies Allergy Verified 03/19/21 11:21 Review of Systems Review of Systems: All systems reviewed & are unremarkable except as noted in HPI and below PMFSH Past Medical History Medical History GERD (gastroesophageal reflux disease) Schizophrenia Social History Social History Smoking status: Never smoker Alcohol intake: never Substance use: never Substance use type: unknown Living arrangements: with family Spiritual care concerns: No Exam Narrative: GENERAL: Somnolent, easily aroused with verbal stimuli HEAD: Normocephalic, atraumatic. EYES: PERRLA and EOMI. ENT: Nares clear, no rhinorrhea or epistaxis. Mucous membranes moist. NECK: Supple. CHEST: Clear to auscultation. No respiratory distress. HEART: Regular rate and rhythm. No murmur heard. Normal peripheral pulses. ABDOMEN: Soft, nontender, nondistended, normal active bowel sounds. EXTREMITIES: Normal range of motion. No edema. SKIN: Warm, dry, no rash. NEURO: No focal deficits. Alert and oriented x3. Moving all extremities spontaneously Course Vital Signs Vital signs: Vital Signs Temperature 97.2 F L 11/13/24 16:30 Pulse Rate 108 H 11/13/24 16:30 Respiratory Rate 18 11/13/24 16:30 Blood Pressure 118/70 11/13/24 16:30 Pulse Oximetry 98 11/13/24 16:30 Temperature 97.2 F L 11/13/24 16:30 Pulse Rate 91 11/13/24 17:08 Respiratory Rate 20 11/13/24 17:08 Blood Pressure 106/69 11/13/24 17:08 Pulse Oximetry 92 11/13/24 17:08 Oxygen Delivery Room Air 11/13/24 17:08 MDM - Headache MDM Narrative Medical decision making narrative: 39-year-old male with history of schizophrenia presents to the emergency department via EMS after being found asleep on the sidewalk. Patient states he was walking from cold worse when he became sleepy, laid down to take a nap and was awoken by EMS and brought to the ED for further evaluation. The patient is reporting a headache but otherwise has no complaints. Vital signs are stable. Patient is afebrile. He is somnolent but easily aroused with verbal stimuli. He is answering questions appropriately. Given lethargy, AMS workup initiated. CT brain shows no acute intracranial abnormality. CBC without leukocytosis. Chemistries are largely unremarkable. CK minimally elevated to 219, fluids provided. UA without UTI. UDS and ETOH are negative. Chest x-ray shows no acute cardiopulmonary findings. EKG shows normal sinus rhythm with no ischemic changes. Patient re-evaluated and is now more awake, alert, answering questions appropriately. His family friend, Bert, is at bedside who assists with some history. States the patient is normally watched by his mother but his mother went out of town so Bert and his have been checking in on the patient. Reports patient received his Uzedy injection about 1 week ago. Usually the days surrounding the patient receiving his injection, he needs to be on Zyprexa for psychosis. States the patient recently ran out of his Zyprexa but has an appointment with his psychiatrist tomorrow morning to have this refilled. The patient reports improvement in his headache after fluids and Toradol. He feels safe to be discharged home and family member at bedside agrees to watch the patient. They were given strict ED return precautions. They are both agreeable with the plan verbalized understanding. Discharged in stable condition. Lab Data 11/13/24 17:34 11/13/24 17:34 Labs: Lab Results 11/13/24 11/13/24 Range/Units 17:34 18:33 WBC 5.4 (4.5-10.0) K/mm3 RBC 4.53 L (4.6-6.20) M/mm3 Hgb 13.1 L (14.0-18.0) g/dL Hct 38.2 L (42.0-52.0) % MCV 84.3 (80-100) fl MCH 28.9 (26-34) pg MCHC 34.3 (32-36) g/dl RDW 12.6 (11.5-14.5) % Plt Count 275 (150-375) k/mm3 MPV 9.2 (7.4-10.4) fl Immature Gran % (Auto) 0.6 H (0-0.5) % Neut % (Auto) 58.5 (45.5-73.1) % Lymph % (Auto) 32.2 (18.3-44.2) % Treasure % (Auto) 6.3 (2.6-8.5) % Eos % (Auto) 1.8 (0-4.4) % Baso % (Auto) 0.6 (0.2-1.2) % Lymph # (Auto) 1.75 (0.9-3.2) K/mm3 Treasure # (Auto) 0.3 (0.1-0.6) K/mm3 Eos # (Auto) 0.1 (0-0.3) K/mm3 Baso # (Auto) 0.0 (0.0-0.1) K/mm3 Abs Immat Gran (auto) 0.03 (0.00-0.031) K/mm3 Absolute Neuts (auto) 3.2 (1.3-6.7) K/mm3 Absolute Nucleated RBC 0.000 (0.0-0.012) K/mm3 Nucleated RBC % 0.0 (0.0-0.2) % Sodium 136 L (137-145) mmol/L Potassium 3.5 (3.4-5.0) mmol/L Chloride 103 (98-107) mmol/L Carbon Dioxide 25 (22-30) mmol/L Anion Gap 8 (4-12) mmol/L BUN 12 (9-20) mg/dL Creatinine 0.80 (0.7-1.3) mg/dL Estim Creat Clear Calc 126 ml/min Estimated GFR > 60 (59 - ) Glucose 148 H (65-110) mg/dL Calcium 9.4 (8.4-10.2) mg/dL Total Bilirubin 0.2 (0.2-1.3) mg/dL AST 40 (17-59) U/L ALT 57 H (6-50) U/L Alkaline Phosphatase 91 (38-126) U/L Total Creatine Kinase 219 H (55-170) U/L Troponin I < 0.012 (0.000-0.034) ng/mL Total Protein 6.6 (6.3-8.2) g/dL Albumin 4.0 (3.5-5.1) g/dL TSH 0.592 (0.465-4.680) uIU/mL Urine Color Yellow (Yellow) Urine Appearance Clear (Clear) Urine pH 6.5 (5.0-9.0) Ur Specific [place] 1.014 (1.001-1.035) Urine Protein Negative (Negative) mg/dL Urine Glucose (UA) Trace H (Negative) mg/dL Urine Ketones Negative (Negative) mg/dL Ur Blood (Man) Negative (Negative) Urine Nitrate Negative (Negative) Urine Bilirubin Negative (Negative) Urine Urobilinogen 0.2 (<2.0) mg/dL Leukocyte Esterase Rfl Negative (Negative) SARA/UL Urine Opiates Screen Negative (Negative) Urine Methadone Screen Negative (Negative) Ur Barbiturates Screen Negative (Negative) Ur Phencyclidine Scrn Negative (Negative) Ur Amphetamine Screen Negative (Negative) U Benzodiazepines Scrn Negative (Negative) Urine Cocaine Screen Negative (Negative) U Cannabinoids Screen Negative (Negative) Ethyl Alcohol < 10 (<10) mg/dL Discharge Plan Discharge Clinical Impression: Headache, Schizophrenia Patient Disposition: Home Condition: Stable Instructions: Antibiotic Form, Schizophrenia (ED), Acute Headache (ED) Additional Instructions: Please make sure to go to your psychiatry appointment tomorrow. Return to the emergency department if you develop thoughts of harming herself, other people or other concerning symptoms. Patient Language: Mongolian Prescriptions: No Action Invega Sustenna 234 mg/1.5 mL Syringe 234 mg IM DAILY olanzapine 20 mg tablet 20 mg PO DAILY olanzapine 20 mg tablet 20 mg PO DAILY Qty: 30 0RF omeprazole 40 mg capsule,delayed release(DR/EC) 40 mg PO DAILY Qty: 30 5RF Follow-up/Referrals: Chester,MD Lizeth [Primary Care Provider, Unknown]
[2024-11-13 17:41] LABS: Hematocrit 38.2 % (42.0-52.0); Hemoglobin 13.1 g/dL (14.0-18.0); Immature Granulocyte Percent A 0.6 % (0-0.5); Lymphocytes Absolute Auto 1.75 K/mm3 (0.9-3.2); Mean Corpuscular HGB Conc 34.3 g/dl (32-36); Mean Corpuscular Hemoglobin 28.9 pg (26-34); Mean Corpuscular Volume 84.3 fl (80-100); Nucleated Red Blood Cells Absolute Auto 0.000 K/mm3 (0.0-0.012); Nucleated Red Blood Cells Perc 0.0 % (0.0-0.2); Platelet Count Result 275 k/mm3 (150-375); Red Blood Count 4.53 M/mm3 (4.6-6.20); White Blood Count 5.4 K/mm3 (4.5-10.0)
[2024-11-13 17:53] LABS: Alanine Aminotransferase 57 U/L (6-50); Albumin Level 4.0 g/dL (3.5-5.1); Alkaline Phosphatase 91 U/L (38-126); Anion Gap 8 mmol/L (4-12); Aspartate Amino Transferase 40 U/L (17-59); Bilirubin,Total 0.2 mg/dL (0.2-1.3); Blood Urea Nitrogen 12 mg/dL (9-20); Calcium 9.4 mg/dL (8.4-10.2); Carbon Dioxide 25 mmol/L (22-30); Chloride 103 mmol/L (98-107); Creatine Kinase 219 U/L (55-170); Estimated CRCL calculation 126 ml/min; Estimated Glomerular Filt Rate > 60; Glucose 148 mg/dL (65-110); Potassium 3.5 mmol/L (3.4-5.0); Sodium 136 mmol/L (137-145); Total Protein 6.6 g/dL (6.3-8.2)
[2024-11-13] MEDS: SODIUM CHLORIDE 0.9% IV 1,000 ML 999 ML IV CONT (18:00)
[2024-11-13] MEDS: KETOROLAC 30 MG/ML VIAL (*BKC) IV PUSH (18:00)
[2024-11-13 18:05] LABS: Troponin I < 0.012 ng/mL (0.000-0.034)
[2024-11-13 18:24] LABS: Thyroid Stimulating Hormone 0.592 uIU/mL (0.465-4.680)
[2024-11-13 19:01] LABS: Cannabinoid Screen Urine Negative (Negative)
[2024-11-13 19:36] LABS: Add Urine Microscopic? NO; Appearance Urine Clear (Clear); Glucose Urine UA Trace mg/dL (Negative); Leukocyte Esterase Ur Negative LEU/UL (Negative); Nitrate Urine Negative (Negative); Specific Grav Ur 1.014 (1.001-1.035)
== END 2024-11-13 21:30 | disposition home or self-care (01) ==
PROVIDERS: Emergency Provider Physician Assistant; PCP Internal Medicine
DX: R51.9 Headache, unspecified (principal); F20.9 Schizophrenia, unspecified; K21.9 Gastro-esophageal reflux disease without esophagitis; F31.9 Bipolar disorder, unspecified; Z79.899 Other long term (current) drug therapy
CPT/HCPCS: 36415; 70450; 71045; 80053; 80307; 81003; 82077; 82550; 84443; 84484; 85025; 93005; 96361; 96374; 99284; J1885; J7030